=== PATIENT | female | born 1985 | race Caucasian/White ===

== ENCOUNTER → 2018-07-13 16:33 | Outpatient (CLI) | payer OTHER, SELFPAY ==
[2018-07-17 08:30] LABS: HPV APTIMA, High Risk Negative (Negative)
== END ==
PROVIDERS: Family Provider Nurse Practitioner Family; PCP Nurse Practitioner Family; Referring Provider Obstetrics & Gynecology; Visit Provider Obstetrics & Gynecology
DX: Z12.4 Encounter for screening for malignant neoplasm of cervix (principal)
CPT/HCPCS: 88175; G0145

== ENCOUNTER 2018-09-16 14:58 | Emergency (ER) | payer OTHER, SELFPAY ==
[2018-09-16 15:00] VITALS: BP 110/70; PULSE 110; RESP 18; TEMP 36.7; O2SAT 97; BMI 28.5
--- NOTE | 2018-09-16 15:13 | EKG12_ITS ---
Test Reason : SOB Blood Pressure : / mmHG Vent. Rate : 103 BPM Atrial Rate : 103 BPM P-R Int : 130 ms QRS Dur : 086 ms QT Int : 336 ms P-R-T Axes : 060 050 015 degrees QTc Int : 440 ms Sinus tachycardia Nonspecific ST and T wave abnormality Abnormal ECG Confirmed by CELI ROWE ([id number]), newspaper editor PAMELA BRYSON ([id number]) on 09/22/2018 2:40:18 PM Referred By: ELVIS Confirmed By:CELI ROWE
--- NOTE | 2018-09-16 15:13 | RAD_ITS ---
STUDY: X-RAY CHEST REASON FOR EXAM: Female, 32 years old. History of asthma and increasing shortness of breath. TECHNIQUE: PA and lateral views of the chest. COMPARISON: None. FINDINGS: Minimal increased linear markings in the right middle lobe. Early infiltrate and/or atelectasis should be ruled out. Follow-up is recommended. There is no demonstrated pleural abnormality. Normal size heart. Normal mediastinum and brigida. Normal visualized pulmonary arteries. Normal visualized aortic arch and descending thoracic aorta. Normal visualized thoracic spine. Normal visualized ribs, clavicles, and shoulders. There is no demonstrated abnormality of the visualized soft tissue structures of the upper abdomen. RAD/Chest PA and Lateral IMPRESSION: Mild degree of increased markings in the right middle lobe. Follow-up is recommended. Electronically Signed: David Gomez MD at 15:52 EST Tel [phone], Service support ,
--- NOTE | 2018-09-16 15:26 | ED.DCSUM_ITS ---
- ER Visit Summary Date of Service: 09/16/18 Chief Complaint: Abrupt onset of anterior bilateral lower chest pain with pleuritic component and shortness of breath History of Present Illness: The patient is a 32 F who has no sniffing a past medical history states she was walking up a flight of steps when she developed bilateral anterior sharp chest pain with radiation to the intrascapular region associated with dyspnea. She states she had difficulty walking up the steps because of shortness of breath. She had a sore throat last week. She denies rhinorrhea, congestion or postnasal drainage. She denies headache. She denies visual, ocular auditory symptoms. She denies change in voice. She denies cough. She has no history of pulmonary embolus or DVT. She denies leg pain, swelling or discoloration. She has no risk factors for PE or DVT. She denies nausea, vomiting or diarrhea. She denies any history of trauma. She has no past medical history and there is no significant family history and no family history of hypercoagulable state or DVT/PE. Physical Examination: Vital signs noted and remarkable for tachycardia. Monitor reveals a sinus tachycardia 110. Patient appears in no distress. Head is atraumatic normocephalic. Pupils are equal round reactive. Extraocular muscles are intact. TMs are pearly white with landmarks noted. Nares patent with no drainage. Posterior pharynx without erythema or exudate. Uvula is midline. There is no dysphonia or dysphasia. Trachea is midline. There is no stridor with auscultation of the neck. Heart is rapid and regular without murmur, gallop or rub. S1 and S2 are normal. Lungs are clear to auscultation on the left with good movement of air bilaterally. Rales noted posteriorly with no egophony abdomen is soft nontender. There is no hepatosplenomegaly. Negative Maurer sign. Bowel sounds present normal. There is no CVA tenderness noted. There is no asymmetry, swelling, discoloration, leg vein distention, palpable cords or tenderness along the distribution of the deep venous system. Neuro exam is nonfocal. Test Results: CBC is unremarkable. Basic metabolic panel unremarkable. Potassium is 3 2 and glucose of 116. D-dimer 0.34. Chest x-ray interpreted by az reveals increased markings right middle lobe. This is in the area that the rales were noted on auscultation. Emergency Department Course and Treatment: With abrupt onset of pleuritic chest pain dyspnea on exertion and tachycardia need to entertain possibility of pulmonary embolus. With rales noted right lower lobe posteriorly differential would include pneumonia. Workup will include BMP, CBC, d-dimer and serum test. Chest x-ray was obtained. If there is an infiltrate noted and d-dimer is elevated this would explain the elevated d-dimer. If there is no infiltrate the d-dimer is related she will need a CTA to evaluate for pulmonary embolus. Treatment Plan: P.o. antibiotics and sports or risk otherwise at severity 1. And ibuprofen for pain Disposition: Discharge to home with appropriate home-going instructions Impression: Community acquired pneumonia, right middle lobe Sinus tachycardia documented on monitor and EKG This note was generated with bead Button dictation software. It may contain incorrect words, spelling, and punctuation that were not noted in review of the chart prior to signing ED Disposition - Plan for ED Patient: Disposition: Home or Assisted Living Chief Complaint: Shortness of Breath Instructions: ED Pneumonia Adult Prescriptions: Levofloxacin [Levaquin] 750 mg PO DAILY #6 tablet Referrals: Care Physician,No Primary [Primary Care Provider] - Augustin Belcher MD [STAFF PHYSICIAN] - 5-7 Days Additional Instructions: Since you do not have a physician you were referred to Dr. Yves Belcher. Your prescription was electronically transmitted to [facility] pharmacy your designated pharmacy/pharmacy of choice.
[2018-09-16 15:34] VITALS: TEMP 36.7; O2SAT 97
[2018-09-16 15:49] LABS: Absolute Lymphocyte Count 1.28 X10^3/ul (0.83-4.51); Absolute Neutrophil Count 3.4 X10^3/uL (2.0-7.7); Basophil# 0.02 X10^3/uL; Basophil% 0.4 % (0-1); Eosinophil# 0.08 X10^3/uL; Eosinophils% 1.5 % (0-5); Hemoglobin 13.8 g/dl (12.0-15.0); Lymphocyte # 1.28 X10^3/ul (4.0); Mean Corp Hgb Conc 33.7 g/gl (32-36); Mean Corpuscular Hgb 29.6 pg (27.0-32.0); Mean Corpuscular Volume 87.8 fL (81-99); Mean Platelet Vol. 10.8 fl (6.2-12.0); Monocyte# 0.52 X10^3/uL; Monocyte% 9.7 % (0-10); Neutrophil # 3.43 X10^3/uL (2.7-7.7); Neutrophil % 64.2 % (47-70); Platelet Count 212 K/mm3 (150-450); RBC Distribution Width CV 13.2 % (11.6-14.6); RBC Distribution Width SD 42.2 fl (35.1-43.9); Red Blood Count 4.67 M/mm3 (4.2-5.4); White Blood Count 5.3 K/mm3 (4.4-11.0)
[2018-09-16 15:57] LABS: Anion Gap 9 (5-15); BUN 9 mg/dL (7-18); BUN/Creat Ratio 10.3 RATIO (10-20); Calcium,Total 8.3 mg/dL (8.5-10.1); Chloride 103 mmol/L (98-107); Creatinine, Serum 0.88 mg/dL (0.55-1.02); EST Glomerular Filtration Rate 80 mL/min (>60); Est Glom Filt Rate - Afr Amer 97 mL/min (>60); Estimated Creatinine Clearance 77.33 ml/min; Glucose 116 mg/dL (74-106); Potassium 3.2 mmol/L (3.5-5.1); Sodium Level 141 mmol/L (136-145)
[2018-09-16 15:59] LABS: POSITIVE COUNT NO; POSITIVE DIFFERENTIAL NO; POSITIVE MORPHOLOGY NO
[2018-09-16 16:04] VITALS: BP 108/70; PULSE 96; RESP 19; TEMP 36.8; O2SAT 97
[2018-09-16 16:15] LABS: D-Dimer Quantitative (DVT/PE) 0.34 FEU/ug/m (0.27-0.49)
[2018-09-16 16:29] LABS: Pregnancy, Serum, hCG Quali. NEGATIVE Negative (0-9 Nonpreg)
[2018-09-16] MEDS: levoFLOXacin 750 MG Tablet PO (16:39)
[2018-09-16 16:50] VITALS: BP 109/66; PULSE 103; RESP 20; O2SAT 98
== END 2018-09-16 16:51 | disposition home or self-care (01) ==
PROVIDERS: Emergency Provider Emergency Medicine
DX: J18.9 Pneumonia, unspecified organism (principal); R00.0 Tachycardia, unspecified
CPT/HCPCS: 71046; 80048; 84703; 85025; 85379; 93005; 99285; A4216

== ENCOUNTER → 2018-10-28 15:02 | Outpatient (CLI) | payer OTHER, SELFPAY ==
[2018-10-28 18:00] LABS: T4 Free Direct 0.73 ng/dL (0.76-1.46); Thyroid Stim Hormone (TSH) 1.11 uIU/mL (0.358-3.74)
[2018-11-02 08:40] LABS: Anti-Thyroglobulin AB < 1.0 IU/mL (0.0-0.9); Thyroglobulin, Serum Qt. 9.6 ng/mL (1.5-38.5); Thyroid Peroxidase AB 13 IU/mL (0-34)
== END ==
PROVIDERS: Family Provider Family Medicine; PCP Family Medicine; Visit Provider Family Medicine
DX: E04.1 Nontoxic single thyroid nodule (principal)
CPT/HCPCS: 36415; 84432; 84439; 84443; 86376; 86800

== ENCOUNTER → 2018-12-07 15:11 | Outpatient (CLI) | payer OTHER, SELFPAY ==
--- NOTE | 2018-12-07 15:14 | US_ITS ---
STUDY: THYROID ULTRASOUND REASON FOR EXAM: Female, 32 years old. Nodule. TECHNIQUE: Ultrasound evaluation of the thyroid was performed with real-time and static aavlos-scale imaging. COMPARISON: 06/16/2017. FINDINGS: RIGHT LOBE: The right lobe of the thyroid gland measures 4.9 x 1.8 x 1.4 cm. There is a homogeneous echotexture. 2 solid nodules measuring 0.89 x 0.56 x 0.53 cm and 0.32 x 0.22 x 0.5 cm respectively. LEFT LOBE: The left lobe of the thyroid gland measures 4.3 x 1.6 x 1.0 cm. There is a homogeneous echotexture. There are no demonstrated solid, cystic or complex lesions. ISTHMUS: The isthmus measures 2 mm. US/Thyroid IMPRESSION: 1. Mild increased size of right thyroid nodule measuring 0.89 x 0.56 x 0.53 cm, previously 0.7 x 0.7 x 0.4 cm. 2. New small solid nodule in the right thyroid lobe measuring 0.32 x 0.22 x 0.53 cm. 3. Interval decrease in size of right thyroid lobe measuring 4.9 x 1.8 x 1.4 cm, previously 5.6 x 2.1 x 1.4 cm. Electronically Signed: Minesh Louise MD at 9:50 EDT , Service support ,
== END ==
PROVIDERS: Family Provider Family Medicine; PCP Family Medicine; Referring Provider Family Medicine; Visit Provider Family Medicine
DX: E04.1 Nontoxic single thyroid nodule (principal)
CPT/HCPCS: 76536

== ENCOUNTER → 2019-02-02 | Outpatient (CLI) | payer OTHER, SELFPAY ==
[2018-12-20 15:19] VITALS: BMI 28.5
--- NOTE | 2019-02-02 14:47 | RAD_ITS ---
STUDY: X-RAY - RIGHT FOOT CLINICAL: Female, 33 years old. Right foot pain TECHNIQUE: 3 view(s) of the foot. COMPARISON: None. FINDINGS: Normal talus, calcaneus, and tarsal bones. Normal visualized subtalar, talonavicular, calcaneocuboid, tarsal and tarsometatarsal articulations. Normal metatarsi. Normal metatarsophalangeal joint of the great toe. Normal tibial and fibular sesamoid bones. Normal interphalangeal joint of the great toe. Normal phalanges of the great toe. Normal second through fifth metatarsophalangeal joints. Normal interphalangeal joints and phalanges of the lesser toes. The soft tissue structures are unremarkable. RAD/Foot min 3 Views IMPRESSION: Normal x-ray examination of the foot. Electronically Signed: Juan Barros MD at 13:32 EDT , Service support ,
[2019-02-02 16:36] LABS: Uric Acid 4.6 mg/dL (2.6-6.0)
== END | disposition home or self-care (01) ==
LOC: MTLAB 14:45
PROVIDERS: Family Provider Family Medicine; PCP Family Medicine; Referring Provider Family Medicine; Visit Provider Family Medicine
DX: M25.571 Pain in right ankle and joints of right foot (principal)
CPT/HCPCS: 36415; 73630; 84550

== ENCOUNTER → 2019-03-01 | Outpatient (CLI) | payer OTHER, SELFPAY ==
[2018-12-20 15:19] VITALS: BMI 28.5
[2019-03-01 17:44] LABS: Vitamin D,25 Hydroxy 23.6 ng/mL (29.95-100.01)
== END | disposition home or self-care (01) ==
LOC: MTLAB 15:31
PROVIDERS: Family Provider Family Medicine; PCP Family Medicine; Referring Provider Podiatrist; Visit Provider Podiatrist
DX: S92.309A Fracture of unspecified metatarsal bone(s), unspecified foot, initial encounter for closed fracture (principal); E55.9 Vitamin D deficiency, unspecified
CPT/HCPCS: 36415; 82306

== ENCOUNTER 2019-04-05 11:00 | Outpatient (RCR) | payer OTHER, SELFPAY ==
[2018-12-20 15:19] VITALS: BMI 28.5
--- NOTE | 2019-02-03 15:45 | HP.PTEVAL_ITS ---
Patient's Visit Information LORENE CHAUDHARY is a 33 year old F referred to Physical Therapy by Micheal Napoles MD with a diagnosis of LCL Sprain/Strain. Date of Evaluation: 02/03/19 Physical Therapist: Tracy Bal DPT - Visit Plan Frequency: 2x /Week Duration: 4 Weeks Plan: Focus on LE and core s/s- ultrasound as needed as modality - Subjective Findings: Patient reports that her left LCL is strained/sprained- insidious onset- started bothering her a couple of weeks ago. Was put on a anti-inflam and it did not make a lot of difference. Pain is located along the lateral aspect of the knee. Worst: 9/10 Agg:bending, squatting, steps (both up and down). Eases: ice, rest, doing nothing. Best:0/10. Describes the pain as dull but when she is squatting its a lot worse- dreds going down stairs. No radiating pain. No N/T in the LE. Sleep: not disturbed. 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 Is waiting on x-ray results on her right foot and its causing her to slow down as well. Dr. Napoles is on top of all of those things. PMHx: anxiety, exercise induced asthma Meds: Zyrtec, IUD, anxiety medication, Prednisone - Objective Posture: FH, RS, increased kyphosis. Gait: decreased stance on the right LE with poor heel/toe pattern. Stairs: asc/desc 8' stairs recip with 2 HR- poor control with descent with pain. HR/TR: able without UE A. SLS: 5 sec with increased muscle activation. Squat: significant weight shift to the right- heels pop off ground. Palpation: tender along lateral joint line. ROM: 0-130 degrees with pain at end range flexion. Strength: ankle: 5/5, Knee: 4+/5, Hip: 4/5, Core: fair. Flex: HS: moderate, Gastroc: moderate. Special Test: [place] y: positive - Goals Goal 1:: Patient will be I with HEP and progression Goal Time Frame: 4-6 Weeks Goal 2:: Patient will ambulate >300 feet with a normalized gait pattern Goal Time Frame: 4-6 Weeks Goal 3:: Patient will asc/desc 8 stairs recip with 1 HR and good technique Goal Time Frame: 4-6 Weeks Goal 4:: Patient will squat with good mechanics Goal Time Frame: 4-6 Weeks - Rehabilitation Potential Physical Therapy Diagnosis: Patient presents with hypomobility- she has decreased painfree ROM, strength, proprioception and muscular endurance leading to increased pain with ADL's. Rehabilitation Potential: Good - Anticipated Interventions Therapeutic Exercise to Include: Strength training, Endurance training, Balance training, Agility training, Body mechanics, Postural training, Flexibilty training, Gait and locomotor training, Dynamic Lumbar Stabilization For the Purpose of:: To improve muscle performance and motor function TENS: Yes Cryotherapy (ice pack, ice massage): Yes Thermo therapy (hot pack): Yes Ultrasound (thermal/non thermal): Yes For the Purpose of:: To decrease pain Thank you for the opportunity to evaluate your patient. For Medicare and Medicare HMO plans, please review the plan of care and approve it. It will need to be FAXED BACK to us at [phone] for Medicare purposes. For Medicare only, by signing this I certify the plan of care. Please let me know if there are questions or concerns regarding this plan of care. Physician Signature: Date:
--- NOTE | 2019-03-07 10:48 | HP.PTREVAL ---
Micheal Napoles MD, It has been my pleasure to treat LORENE CHAUDHARY over the last 9 visits for LCL Sprain/Strain. Please see the progress note below for an update on the physical therapy plan of care! Subjective: Anders reports that her knee is good today but she is still experiencing flare ups. Does have tweaks and it takes a few minutes for it to go away. She is wearing her cam boot on the right foot. Does not trust the knee- and is afraid to make it better. Objective/Function: Posture: FH, RS, increased kyphosis. Gait: CAM walker on the right LE does gait is deviated. Stairs: asc/desc 8' stairs recip with 1 HR- poor control with descent with pain. HR/TR: able without UE A. SLS: 20 sec with increased muscle activation. Squat: moderate weight shift to the right- heels pop off ground. Palpation: tender along lateral joint line and along fibular head. ROM: 0-130 degrees Strength: ankle: 5/5, Knee: 4+/5, Hip: 4/5, Core: fair. Flex: HS: moderate, Gastroc: moderate. Special Test: Sasha: positive Plan Plan: Continue 2x a week for 4 weeks with 60 min session- Ultrasound on lateral aspect of the knee and possible need for fibular head mobs- Exercise for core and LE strengthening- perform wtih Cam walker on the right foot Goals Goal 1:: Patient will be I with HEP and progression Goal Time Frame: 4-6 Weeks Goal Progress: Progressing Goal 2:: Patient will ambulate >300 feet with a normalized gait pattern Goal Time Frame: 4-6 Weeks Goal Progress: Progressing Goal 3:: Patient will asc/desc 8 stairs recip with 1 HR and good technique Goal Time Frame: 4-6 Weeks Goal Progress: Progressing Goal 4:: Patient will squat with good mechanics Goal Time Frame: 4-6 Weeks Goal Progress: Progressing Anticipated Interventions Therapeutic Exercise to Include: Strength training, Endurance training, Balance training, Agility training, Body mechanics, Postural training, Flexibilty training, Gait and locomotor training, Dynamic Lumbar Stabilization For the Purpose of:: To improve muscle performance and motor function TENS: Yes Cryotherapy (ice pack, ice massage): Yes Thermo therapy (hot pack): Yes Ultrasound (thermal/non thermal): Yes For the Purpose of:: To decrease pain Please do not hesitate to contact me at [phone] by phone or if you have questions or concerns regarding this new plan of care! Sincerely, MIRIAN TuckerT
--- NOTE | 2019-04-05 11:20 | HP.PTDCSUM ---
HP - PT D/C Summary It has been my pleasure to treat LORENE CHAUDHARY under orders from Micheal Napoles MD, for the diagnosis of LCL Sprain/Strain for a total of 17 visit(s). Discharge Date: Please see the following information for a summary of their discharge status. - Subjective Subjective: Patient reports that she is doing great- no problems with ADL's or recreational activities with the knee but the boot is driving her crazy. She has zero pain and feels the knee is 98% better. Saw and has to be in the boot for another 4 weeks. - Pain right foot Pain Intensity (Out of 10): 3 left knee Pain Intensity (Out of 10): 0 - Overall Improvement % Improvement: 98 - Objective Objective/Function: Posture: good throughout session in hard back chair and plinth Gait: CAM walker on the right LE does gait is deviated. Stairs: asc/desc 8' stairs recip with no HR- good control HR/TR: able without UE A. SLS: 30 sec no LOB or increased muscle activation. Squat: mild valgus Palpation: not tender ROM: 0-130 degrees Strength: ankle: 5/5, Knee: 5/5, Hip: 5/5, Core: fair plus. Flex: HS: moderate, Gastroc: moderate. Special Test: Sasha: positive - Goals Goal 1:: Patient will be I with HEP and progression Goal Progress: Goal Met Goal 2:: Patient will ambulate >300 feet with a normalized gait pattern Goal Progress: Progressing Goal 3:: Patient will asc/desc 8 stairs recip with 1 HR and good technique Goal Progress: Goal Met Goal 4:: Patient will squat with good mechanics Goal Progress: Goal Met - Plan Plan: Discharge to [facility] for her knee. - D/C Information If there are questions or concerns regarding this patient's physical therapy, please feel free to call me at [phone]. Thank you for the referral of this patient. Sincerely, Tracy Bal DPT
== END 2019-04-05 19:00 | disposition home or self-care (01) ==
LOC: PT 11:00
PROVIDERS: Family Provider Family Medicine; PCP Family Medicine; Referring Provider Family Medicine; Visit Provider Family Medicine
DX: S83.429D Sprain of lateral collateral ligament of unspecified knee, subsequent encounter (principal)
CPT/HCPCS: 97035; 97110; 97161; 97164

== ENCOUNTER → 2019-08-04 14:01 | Outpatient (CLI) | payer OTHER, SELFPAY ==
[2019-07-18 11:46] VITALS: BMI 28.5
--- NOTE | 2019-08-04 14:02 | US_ITS ---
STUDY: THYROID ULTRASOUND REASON FOR EXAM: Female, 33 years old. Thyroid disorder. TECHNIQUE: Ultrasound evaluation of the thyroid was performed with real-time and static avalos-scale imaging. COMPARISON: December 07, 2018. FINDINGS: RIGHT LOBE: The right lobe of the thyroid gland measures 4.8 x 1.9 x 1.7 cm. There is a homogeneous echotexture. In the mid thyroid there is a solid cystic nodule measuring 1.0 x 0.6 x 0.8 cm. There is also a 0.3 x 0.3 x 0.2 cm cyst with small internal nodule in the upper to mid thyroid. LEFT LOBE: The left lobe of the thyroid gland measures 4.6 x 1.5 x 1.1 cm. There is a homogeneous echotexture. There are no demonstrated solid, cystic or complex lesions. ISTHMUS: The isthmus measures 0.2 cm. The regional lymph nodes are normal. US/Thyroid IMPRESSION: Stable findings when compared with study of approximately 8 months ago. Both nodules are characterized by ACR TIRADS criteria as category TR 2, not suspicious. Electronically Signed: Chapin Alejandre DO at 20:51 EST Tel [phone], Service support ,
== END ==
PROVIDERS: Family Provider Family Medicine; PCP Family Medicine; Referring Provider Obstetrics & Gynecology; Visit Provider Obstetrics & Gynecology
DX: E07.9 Disorder of thyroid, unspecified (principal)
CPT/HCPCS: 76536

== ENCOUNTER → 2019-08-10 15:30 | Outpatient (CLI) | payer OTHER, SELFPAY ==
[2019-07-18 11:46] VITALS: BMI 28.5
[2019-08-10 17:54] LABS: Vitamin D,25 Hydroxy 22.3 ng/mL (29.95-100.01)
== END ==
PROVIDERS: Family Provider Family Medicine; PCP Family Medicine; Referring Provider Family Medicine; Visit Provider Family Medicine
DX: E55.9 Vitamin D deficiency, unspecified (principal)
CPT/HCPCS: 36415; 82306

== ENCOUNTER → 2020-03-20 | Outpatient (CLI) | payer OTHER, SELFPAY ==
[2020-03-20 15:28] VITALS: BMI 28.5
== END | disposition home or self-care (01) ==
LOC: LABSPEC 16:16
PROVIDERS: PCP Family Medicine; Referring Provider Obstetrics & Gynecology; Visit Provider Obstetrics & Gynecology
DX: R35.0 Frequency of micturition (principal)
CPT/HCPCS: 87077; 87086; 87088; 87186

== ENCOUNTER → 2020-06-28 14:25 | Outpatient (CLI) | payer OTHER, SELFPAY ==
[2020-03-20 15:28] VITALS: BMI 28.5
[2020-06-28 17:48] LABS: Vitamin D,25 Hydroxy 44.2 ng/mL
== END ==
PROVIDERS: PCP Family Medicine; Referring Provider Family Medicine; Visit Provider Family Medicine
DX: E55.9 Vitamin D deficiency, unspecified (principal)
CPT/HCPCS: 36415; 82306

== ENCOUNTER → 2020-07-11 15:29 | Outpatient (CLI) | payer OTHER, SELFPAY ==
[2020-03-20 15:28] VITALS: BMI 28.5
--- NOTE | 2020-07-11 15:32 | US_ITS ---
STUDY: THYROID ULTRASOUND REASON FOR EXAM: Female, 34 years old. nodule TECHNIQUE: Ultrasound evaluation of the thyroid was performed with real-time and static avalos-scale imaging. COMPARISON: 08/04/2019. FINDINGS: RIGHT LOBE: The right lobe of the thyroid gland measures 5.5 x 2.0 x 1.6 cm. There is a homogeneous echotexture. Solid cystic nodule mid pole measuring 1.3 x 0.8 x 0.7 cm. Lobulated isoechoic component with well-defined borders measuring 0.7 x 0.5 cm unchanged. Cystic nodule lower pole measuring 0.3 x 0.2 x 0.2 cm. Nodules have remained stable. LEFT LOBE: The left lobe of the thyroid gland measures 4.0 x 1.4 x 1.5 cm. There is a homogeneous echotexture. There are no demonstrated solid, cystic or complex lesions. ISTHMUS: The isthmus measures 2 mm . The regional lymph nodes are normal. US/Thyroid IMPRESSION: Stable nodules right lobe of the thyroid gland. ACR TI-RADS Category 2, benign. Enlarged right lobe not significantly changed. Electronically Signed: Haris Haro MD at 7:18 EDT , Service support ,
== END ==
PROVIDERS: PCP Family Medicine; Referring Provider Family Medicine; Visit Provider Family Medicine
DX: E04.1 Nontoxic single thyroid nodule (principal)
CPT/HCPCS: 76536

== ENCOUNTER → 2020-11-06 | Outpatient (CLI) | payer OTHER, SELFPAY ==
[2020-11-06 13:58] VITALS: BMI 30.4
== END | disposition home or self-care (01) ==
LOC: LABSPEC 16:54
PROVIDERS: PCP Family Medicine; Referring Provider Nurse Practitioner Women's Health; Visit Provider Nurse Practitioner Women's Health
DX: R30.0 Dysuria (principal)
CPT/HCPCS: 87077; 87086; 87088; 87186

== ENCOUNTER → 2021-02-15 15:15 | Outpatient (CLI) | payer OTHER, SELFPAY ==
[2020-11-06 13:58] VITALS: BMI 30.4
[2021-02-21 12:39] LABS: Vitamin D,25 Hydroxy 30.8 ng/mL
== END ==
PROVIDERS: PCP Family Medicine; Referring Provider Family Medicine; Visit Provider Family Medicine
DX: E55.9 Vitamin D deficiency, unspecified (principal)
CPT/HCPCS: 36415; 82306

== ENCOUNTER → 2021-05-09 16:58 | Outpatient (CLI) | payer OTHER, SELFPAY ==
[2020-11-06 13:58] VITALS: BMI 30.4
--- NOTE | 2021-05-09 17:00 | RAD_ITS ---
HISTORY: stepped on nail EXAMINATION/TECHNIQUE: XR Foot Min 3 Views: COMPARISON: None FINDINGS: BONES/JOINTS: 3 mm focal cortical depression at the medial cortex of the second proximal phalanx. No other findings suspicious for possible acute bony injury. Preservation of the joint spaces. No sclerotic or destructive changes observed. SOFT TISSUES: No soft tissue swelling or gas. No radiopaque foreign body. RAD/Foot min 3 Views IMPRESSION: Possible focal cortical injury second proximal phalanx. No retained soft tissue foreign body. at 0048 Reported and signed by: Haris Veronica MD Electronically Signed: Haris Veronica MD at 0:47 EDT Tel , Service support ,
== END ==
PROVIDERS: PCP Family Medicine; Referring Provider Nurse Practitioner Family; Visit Provider Nurse Practitioner Family
DX: S91.332A Puncture wound without foreign body, left foot, initial encounter (principal)
CPT/HCPCS: 73630

== ENCOUNTER → 2021-06-19 | Outpatient (CLI) | payer OTHER, SELFPAY | END | disposition home or self-care (01) | LOC: LABSPEC 15:13 | PROVIDERS: PCP Family Medicine; Referring Provider Family Medicine; Visit Provider Family Medicine | DX: U07.1 COVID-19 (principal) | CPT/HCPCS: 87635; U0005; U0003 ==

== ENCOUNTER 2021-06-25 18:29 | Outpatient (CLI) | payer OTHER, SELFPAY ==
[2021-06-25 18:40] VITALS: BP 114/66; PULSE 105; RESP 20; TEMP 37.9; O2SAT 98
[2021-06-25] MEDS: Acetaminophen 325 MG Tablet 650 MG PO (18:43)
[2021-06-25] MEDS: 0.9% Saline Lock 10 ML Syringe IV (18:44)
[2021-06-25 19:33] VITALS: BP 105/54; PULSE 100; RESP 20; TEMP 38.4; O2SAT 95
[2021-06-25 20:33] VITALS: BP 101/55; PULSE 95; RESP 18; TEMP 37.3; O2SAT 95
== END 2021-06-25 20:40 | disposition home or self-care (01) ==
LOC: MS3OUT 18:29 → MS3 18:30
PROVIDERS: PCP Family Medicine; Referring Provider Nurse Practitioner Adult Health; Visit Provider Nurse Practitioner Adult Health
DX: Z23 Encounter for immunization (principal); U07.1 COVID-19
CPT/HCPCS: J7050; M0243; A4216; Q0244

== ENCOUNTER 2021-06-26 02:09 | Emergency (ER) | payer OTHER, SELFPAY ==
[2021-06-26 02:10] VITALS: BP 98/70; PULSE 95; RESP 18; TEMP 37.7; O2SAT 95; BMI 30.2
--- NOTE | 2021-06-26 02:44 | EX.ED.DYSGE1 ---
HPI History of Present Illness Chief Complaint: Nausea/Vomiting Informant: patient Narrative Narrative: Patient presents with nausea nausea and 2 episodes of vomiting. This patient started with symptoms of Covid that were typical about 9 days ago. She does have asthma but has not been having an exacerbation. She has not been on steroids. She was set up for outpatient monoclonal treatment. At about 6 PM she had casirivimab/imdevimab infusion. After that she has vomited twice. She does have Zofran at home that she was given. She tried this but it did not help. She is not really having abdominal pain. She is not having dyspnea at this time. Her reason for coming here is the nausea and vomiting. Nothing specifically makes this better or worse. No blood was seen. [facility] Medical History (Updated 06/26/21 @ 05:[address] Casa Ma MD) Asthma Back problem Encounter for IUD insertion Thyromegaly Home Medications cetirizine 10 mg tablet 10 mg PO DAILY 12/20/18 [History Last Taken Unknown] albuterol sulfate 1 - 2 inh INHALATION Q4H PRN PRN 06/25/21 [History Last Taken Unknown] tiotropium bromide [Spiriva Respimat] 2 inh INHALATION DAILY 06/25/21 [History Last Taken Unknown] promethazine 25 mg PO Q6H PRN #10 tab 06/26/21 [Rx Last Taken Unknown] Allergy/AdvReac Type Severity Reaction Status Date / Time No Known Allergies Allergy Verified 06/26/21 02:14 Family History Grandfather Diabetes Hypertension Grandfather Cancer Throat Son Asthma Surgical History History of wisdom tooth extraction, class IV edentulism Social History adopted: No household members: family housing: house number of children: 2 current occupational status: employed current occupation: [employer] current occupational exposures/hazards: Yes pets and animals: Yes history of recent travel: No Smoking Status: Never smoker alcohol intake: current alcohol intake frequency: holidays/special occasions only substance use type: does not use seatbelt use: always do you feel safe at home: Yes additional social history: - [employer] [facility] ED Constitutional Constitutional ED: Reports chills and subjective Eyes Eyes: Denies blurry vision ENT ENT ED: Reports rhinorrhea; Denies ear pain or sore throat Cardiovascular Cardiovascular: Denies chest pain Respiratory/Chest Respiratory/Chest: Reports cough; Denies dyspnea Gastrointestinal Gastrointestinal: Reports nausea and vomiting; Denies abdominal pain, constipation, diarrhea or melena Genitourinary Genitourinary ED: Denies dysuria, hematuria or urinary frequency Musculoskeletal Musculoskeletal: Reports myalgias Integumentary Denies abscess Neurologic Neurologic: Denies weakness Endocrine Endocrinology: Denies polydipsia or polyuria EXAM Physical Exam Const Vital Signs: 06/26/21 02:10 Temperature 99.9 F H Temperature Source Oral Pulse Rate 95 Respiratory Rate 18 Blood Pressure 98/70 Blood Pressure Mean 79 Pulse Ox 95 Oxygen Delivery Method Room Air Positive well nourished and well developed General Appearance ED: well developed and NAD HEENT Reports moist mucous membranes Eyes General Eye ED: Negative for pale conjunctiva or scleral icterus Neck no JVD Resp normal respiratory effort and clear to auscultation bilaterally Auscultation: Negative for wheezes Cardio Negative for regular rate or regular rhythm GI normal to inspection, nondistended, normoactive bowel sounds, non-tender and non-distended Palpation: soft Back/Spine no CVA tenderness Extremity normal to inspection Neuro oriented x3 Sensorium / Orientation: alert Psych mental status grossly normal Skin no rashes or lesions noted MDM MDM MDM Narrative Medical decision making narrative: I rechecked the patient. She states the nausea was not any better. At this point I told her we will get her some meds through IV and IV fluids to try to help. After talking with nursing staff I find she has been drinking water the entire time here. So evidently she is drinking without any vomiting. I explained the patient I will try to get her better but if we are controlling her vomiting but she still has nausea that may be the best we can do. Alonso will have problems with nausea vomiting and diarrhea. She seems to really flared up with the nausea after her monoclonal antibodies. This should calm down over the next day. We will recheck her again. 05: 30 Patient's been resting. She has not vomited. She drank water. She drank a can of Sprite. She is doing better. She has Zofran at home. I will write for some Phenergan. She can also take Benadryl if needed. This will help her rest as well as has some beneficial effect with nausea. Discharge Plan Triage Chief Complaint: Nausea/Vomiting ED Provider: Casa Ma Dx/Rx/DC Orders Clinical Impression: COVID-19, Nausea & vomiting, Dehydration, Medication reaction Instructions: ED Vomiting (Adult) Prescriptions: New promethazine 25 mg tablet 25 mg PO Q6H PRN (Reason: nausea and vomiting) Qty: 10 RF: 0 No Action cetirizine [Zyrtec] 10 mg tablet 10 mg PO DAILY RF: 0 albuterol sulfate 90 mcg/actuation HFA aerosol inhaler 1 - 2 inh INHALATION Q4H PRN PRN (Reason: sob) RF: 0 Spiriva Respimat 1.25 mcg/actuation mist 2 inh INHALATION DAILY RF: 0 Primary Care Provider: Micheal Napoles Referrals: Micheal Napoles MD [Primary Care Provider] - 3-5 Days if not improving Disposition Disposition: Home, Self Care
[2021-06-26] MEDS: proMETHazine 25 MG/ML Syringe 12.5 MG IM (02:51)
[2021-06-26] MEDS: 0.9% Normal Saline 1,000 ML 1000 ML IV (04:12)
[2021-06-26] MEDS: Ketorolac 15 MG/ML Vial IV (04:19)
[2021-06-26] MEDS: DiphenhydrAMINE 50 MG/ML Syringe 25 MG IV (04:20)
[2021-06-26] MEDS: Ondansetron 4 MG/2 ML Vial IV (04:29)
== END 2021-06-26 06:04 | disposition home or self-care (01) ==
PROVIDERS: Emergency Provider Emergency Medicine; PCP Family Medicine
DX: U07.1 COVID-19 (principal); R11.2 Nausea with vomiting, unspecified; E86.0 Dehydration; T50.995A Adverse effect of other drugs, medicaments and biological substances, initial encounter; Y92.9 Unspecified place or not applicable; J45.909 Unspecified asthma, uncomplicated
CPT/HCPCS: 96361; 96372; 96374; 96375; 99284; A4216; J2405

== ENCOUNTER → 2021-07-12 | Outpatient (CLI) | payer OTHER, SELFPAY ==
[2021-07-12 15:20] LABS: Bacteria 0 SEEN /hpf (None Seen); Mucous, Urine 0 SEEN /hpf (<or=2+)
[2021-07-12 15:28] LABS: Color, Urine Yellow (Yellow); Glucose, Dipstick Normal (Normal); Ketone-Dipstick Negative (Negative); Leukocyte Esterase-Dipstick 100 /ul (Negative); Nitrite-Dipstick Negative (Negative); Occult Blood-Urine 150 /ul (Negative); Protein-Dipstick 30 mg/dl (Negative); Urine Bilirubin Dipstick Negative (Negative); Urine Clarity Sl. Cloudy (Clear); Urine Urobilinogen Normal (Normal)
[2021-07-12 15:43] LABS: Red Blood Cells-Urine 5-10 SEEN /hpf (0-5); White Blood Cells 25-50 SEEN /hpf (0-5)
[2021-07-12 15:44] LABS: Squamous Epithelial Cells - UA 0-5 SEEN /hpf (5-10)
== END | disposition home or self-care (01) ==
LOC: LABSPEC 15:08
PROVIDERS: PCP Family Medicine; Referring Provider Physician Assistant Surgical; Visit Provider Physician Assistant Surgical
DX: N39.0 Urinary tract infection, site not specified (principal)
CPT/HCPCS: 81001; 87077; 87086; 87088; 87186

== ENCOUNTER 2021-10-22 17:56 | Outpatient (CLI) | payer OTHER, SELFPAY | END 2021-10-22 23:59 | disposition short-term general hospital (02) | PROVIDERS: PCP Family Medicine; Referring Provider Family Medicine; Visit Provider Family Medicine | DX: B34.9 Viral infection, unspecified (principal) | CPT/HCPCS: 87635; U0003; U0005 ==

== ENCOUNTER → 2022-05-29 | Outpatient (CLI) | payer OTHER, SELFPAY ==
--- NOTE | 2022-05-29 17:56 | MRI_ITS ---
STUDY: MRI ORBITS WITH AND WITHOUT CONTRAST REASON FOR EXAM: Female, 36 years old. CONGENITAL MALFORMATION OF RETINA TECHNIQUE: Standardized fat and water weighted pulse sequences were obtained in all 3 orthogonal planes, pre-and post contrast administration. IV CLARISCAN 15CC was administered for the contrast portion of the examination. COMPARISON: None. FINDINGS: Normal bilateral globes. Normal bilateral optic nerve sheath complexes and optic nerves. Normal bilateral intraconal and extraconal spaces. Normal bilateral extraocular muscles. Normal optic chiasm and post-chiasmatic tracts. Normal sella turcica, pituitary gland, infundibular stalk, and hypothalamus. Normal bilateral cavernous sinuses. Normal tectal plate and pineal gland. Normal flow voids within the major intracranial circulation suggesting patency by spin echo criteria. Normal size of the ventricles and extra-axial spaces for the patient''s age. Normal white matter tracts of the supratentorial brain. Normal bilateral basal ganglia. Normal thalami. There is no extra-axial fluid accumulation. Normal midbrain, serafin and medulla. Normal cerebellum. Normal basal cisterns. MRI/Orbit Face Neck W/WO Contrast IMPRESSION: No abnormality of the optic nerves or optic chiasm. No abnormal intraorbital mass.. Electronically Signed: Jatinder Juarez MD at 7:11 EDT ,
== END | disposition home or self-care (01) ==
LOC: MRI 17:53
PROVIDERS: PCP Family Medicine; Visit Provider Ophthalmology
DX: Q14.1 Congenital malformation of retina (principal); H35.89 Other specified retinal disorders; H53.50 Unspecified color vision deficiencies
CPT/HCPCS: 70543; A9575

== ENCOUNTER → 2022-07-30 | Outpatient (CLI) | payer OTHER, SELFPAY ==
--- NOTE | 2022-07-30 17:05 | RAD_ITS ---
STUDY: X-RAY CHEST REASON FOR EXAM: Female, 36 years old. ASTHMA EXACERBATION TECHNIQUE: Frontal and lateral views of the chest. COMPARISON: 09/16/2018 FINDINGS: The lungs are clear and expanded. There is no demonstrated pleural abnormality. Normal size heart. Normal mediastinum and brigida. Normal visualized pulmonary arteries. Normal visualized aortic arch and descending thoracic aorta. Normal visualized thoracic spine. Normal visualized ribs, clavicles, and shoulders. There is no demonstrated abnormality of the visualized soft tissue structures of the upper abdomen. RAD/Chest PA and Lateral IMPRESSION: Normal x-ray examination of the chest. Electronically Signed: Romero Clark MD at 23:59 EDT ,
== END | disposition home or self-care (01) ==
LOC: MTRAD 17:04
PROVIDERS: PCP Family Medicine; Referring Provider Family Medicine; Visit Provider Family Medicine
DX: J45.901 Unspecified asthma with (acute) exacerbation (principal)
CPT/HCPCS: 71046

== ENCOUNTER → 2022-09-12 | Outpatient (CLI) | payer OTHER, SELFPAY ==
[2022-09-23 19:48] LABS: HPV APTIMA, High Risk Negative (Negative)
== END | disposition home or self-care (01) ==
PROVIDERS: PCP Family Medicine; Visit Provider Obstetrics & Gynecology
DX: Z01.419 Encounter for gynecological examination (general) (routine) without abnormal findings (principal)
CPT/HCPCS: 87624; 88175; G0145

== ENCOUNTER → 2022-09-23 | Outpatient (CLI) | payer OTHER, SELFPAY ==
--- NOTE | 2022-09-23 14:20 | US_ITS ---
INDICATION: thyromegaly, nodules EXAMINATION: US Thyroid (eg thyroid, parathyroid, parotid) TECHNIQUE: York scale and color doppler imaging was performed of the thyroid gland. COMPARISON: None. FINDINGS: RIGHT THYROID LOBE: Measures 5.1 x 1.9 x 1.7 cm. Homogeneous echotexture with normal vascularity. [There is a small colloid cyst. There is also a 2.2 cm hypoechoic solid and cystic oval nodule in the midpole which is wider than tall and well-circumscribed. This is consistent with a TI-RADS 3 nodule. LEFT THYROID LOBE: Measures 4.2 x 1.6 x 1.1 cm. Homogeneous echotexture with normal vascularity. [No thyroid nodules are present. ISTHMUS: Measures 0.2 cm.. No thyroid nodules are present. US/Thyroid IMPRESSION: 2.2 cm TR 3 solid and cystic nodule in the right mid pole. Recommend follow-up ultrasound in one year to assess stability. Electronically Signed: Yves Dickerson MD at 17:28 EST ,
--- NOTE | 2022-09-23 14:20 | US_ITS ---
INDICATION: IUD CHECK EXAMINATION: US Pelvis Non OB Complete With Transvaginal Imaging TECHNIQUE: Transabdominal and transvaginal pelvic ultrasound was performed. Grayscale, spectral waveform, and color flow Doppler evaluation of the adnexa. COMPARISON: None. FINDINGS: UTERUS: Anteverted. The uterus measures 9.3 x 4.9 x 4.6 cm. There is no uterine mass. The endometrial stripe measures 4 mm in AP diameter which is within normal limits. There is an intrauterine device in satisfactory position near the fundus. RIGHT OVARY: Measures 4 x 2.9 x 2.2 cm. Non-enlarged, normal echogenicity. There is normal arterial inflow and venous outflow present in the right ovary. LEFT OVARY: Measures 2.6 x 1.7 x 1.6 cm. Non-enlarged, normal echogenicity. There is normal arterial inflow and venous outflow present in the left ovary. FREE FLUID: None. US/Pelvic (Non ) IMPRESSION: IUD is in satisfactory position near the fundus. Electronically Signed: Yves Dickerson MD at 17:23 EST ,
== END | disposition home or self-care (01) ==
LOC: US 14:18
PROVIDERS: PCP Family Medicine; Referring Provider Obstetrics & Gynecology; Visit Provider Obstetrics & Gynecology
DX: Z30.430 Encounter for insertion of intrauterine contraceptive device (principal); E01.0 Iodine-deficiency related diffuse (endemic) goiter
CPT/HCPCS: 76536; 76830; 76856

== ENCOUNTER → 2022-10-17 | Outpatient (CLI) | payer OTHER, SELFPAY ==
--- NOTE | 2022-10-17 | FLU_PTH ---
PATIENT: LORENE CHAUDHARY LOC: [facility] U#:[id number] AGE/SX: 36/F ROOM: RE10/17/[address]: Dr. Galen Welch MD : 1985 BED: DIS: 10/17/2022 SPEC #: [id number] RECD: 10/17/22 11:51 STATUS: HERON RERaza #: [id number] TONG: 10/17/22 00:[address]: Galen Welch DEPT: CYTOLOGY RECD BY: Jessika Armenta ENTERED: 10/17/22 12:52 SP TYPE: Fluid OTHR DR: Dr. Micheal Napoles MD Tissues: A - Thyroid gland, NOS B - Thyroid gland, NOS Procedures: Special Stain Group II Surgery Specimen Level IV Cytospin Fluid Cytology Other HEADER OPERATION: Fine needle aspiration right thyroid PRE-OP DIAGNOSIS: Abnormal thyroid ultrasound TISSUE SUBMITTED: A ? FNA thyroid fluid, B ? FNA thyroid x12 slides DIAGNOSIS CYTOLOGY A. Fine needle aspiration, thyroid fluid (cytospin and cell block): Negative for malignant cells. See comment. B. Fine needle aspiration, thyroid nodule (smears): Benign, consistent with benign follicular/colloid nodule (Rentz Category II). See comment. AM:zahra 10/20/2022 COMMENT A. The specimen contains rare benign appearing follicular cells. B. The specimen is adequate for evaluation. The Rentz System for thyroid diagnostic categorization was used in the evaluation of this case. The specimen is adequate for evaluation. CYTOLOGY STUDY Slides are reviewed. CYTOLOGY GROSS A - Received is 30 ml of light holm cloudy fluid labeled with the patient's name and and designated per the requisition as right thyroid. Submitted for cytology preparation including cell block. B - Received are 12 smears labeled with the patient's name and designated per the requisition as right thyroid. Submitted for staining. / zahra 10/17/2022 TC:5 CPT: 11722 x2, 43676
== END | disposition home or self-care (01) ==
LOC: LABSPEC 12:39
PROVIDERS: PCP Family Medicine; Referring Provider Surgery; Visit Provider Surgery
DX: R94.6 Abnormal results of thyroid function studies (principal)
CPT/HCPCS: 88108; 88161; 88305; 88313

== ENCOUNTER → 2023-01-29 | Outpatient (CLI) | payer OTHER, SELFPAY ==
[2023-01-29 17:41] LABS: Absolute Neutrophil Count 5.7 X10^3/uL (2.0-7.7); Basophil# 0.05 X10^3/uL; Basophil% 0.5 % (0-1); Eosinophil# 0.26 X10^3/uL; Eosinophils% 2.9 % (0-5); Hematocrit 39.6 % (37-47); Hemoglobin 13.5 g/dL (12.0-15.0); Lymphocyte % 27.4 % (19-41); Mean Corp Hgb Conc 34.1 g/dL (32-36); Mean Corpuscular Hgb 29.7 pg (27.0-32.0); Mean Corpuscular Volume 87.2 fL (81-99); Mean Platelet Vol. 11.3 fl (6.2-12.0); Monocyte# 0.54 X10^3/uL; Monocyte% 5.9 % (0-10); NRBC Flagged by Analyzer 0 % (0-5); Neutrophil # 5.73 X10^3/uL (2.7-7.7); Neutrophil % 62.9 % (47-70); Platelet Count 246 K/mm3 (150-450); RBC Distribution Width CV 12.8 % (11.6-14.6); RBC Distribution Width SD 40.5 fl (35.1-43.9); Red Blood Count 4.54 M/mm3 (4.2-5.4); White Blood Count 9.1 K/mm3 (4.4-11.0)
[2023-01-29 18:22] LABS: Vitamin D,25 Hydroxy 36.2 ng/mL
[2023-01-29 18:24] LABS: ALB/GLOB Ratio 1.1 RATIO (0.9-2.4); AST(SGOT) 19 U/L (15-37); Alanine Aminotransfer ALT/SGPT 31 U/L (13-56); Albumin, Serum 3.7 g/dL (3.2-5.0); Alkaline Phosphatase 65 U/L (45-117); Anion Gap 10 (5-15); BUN 8 mg/dL (7-18); BUN/Creat Ratio 10.7 RATIO (10-20); Calcium,Total 8.6 mg/dL (8.5-10.1); Chloride 105 mmol/L (98-107); Creatinine, Serum 0.75 mg/dL (0.55-1.02); EST Glomerular Filtration Rate 93 mL/min (>60); Est Glom Filt Rate - Afr Amer 113 mL/min (>60); Globulin 3.5 g/dL (2.2-4.2); Glucose 128 mg/dL (74-106); Potassium 3.6 mmol/L (3.5-5.1); Protein, Total 7.2 g/dL (6.4-8.2); Sodium Level 139 mmol/L (136-145)
[2023-01-30 12:15] LABS: Hemoglobin A1c 5.2 % (3.8-5.6)
== END | disposition home or self-care (01) ==
LOC: MFPLAB 17:03
PROVIDERS: PCP Family Medicine; Visit Provider Family Medicine
DX: E55.9 Vitamin D deficiency, unspecified (principal)
CPT/HCPCS: 36415; 80053; 82306; 83036; 85025

== ENCOUNTER → 2023-08-04 | Outpatient (CLI) | payer OTHER, SELFPAY ==
[2023-08-04 18:01] LABS: Vitamin D,25 Hydroxy 38.2 ng/mL
[2023-08-04 18:05] LABS: AST(SGOT) 15 U/L (15-37); Alanine Aminotransfer ALT/SGPT 32 U/L (13-56); Albumin, Serum 3.5 g/dL (3.2-5.0); Alkaline Phosphatase 64 U/L (45-117); Anion Gap 5 (5-15); BUN 14 mg/dL (7-18); BUN/Creat Ratio 15.2 RATIO (10-20); Calcium,Total 8.6 mg/dL (8.5-10.1); Chloride 103 mmol/L (98-107); Creatinine, Serum 0.92 mg/dL (0.55-1.02); EST Glomerular Filtration Rate 74 mL/min (>60); Est Glom Filt Rate - Afr Amer 89 mL/min (>60); Globulin 3.5 g/dL (2.2-4.2); Glucose 95 mg/dL (74-106); Potassium 3.6 mmol/L (3.5-5.1); Sodium Level 136 mmol/L (136-145)
== END | disposition home or self-care (01) ==
LOC: MFPLAB 17:03
PROVIDERS: PCP Family Medicine; Visit Provider Family Medicine
DX: E55.9 Vitamin D deficiency, unspecified (principal)
CPT/HCPCS: 36415; 80053; 82306

== ENCOUNTER → 2023-10-02 | Outpatient (CLI) | payer OTHER, SELFPAY ==
--- NOTE | 2023-10-02 12:58 | US_ITS ---
STUDY: THYROID ULTRASOUND REASON FOR EXAM: Female, 37 years old. nodule TECHNIQUE: Ultrasound evaluation of the thyroid was performed with real-time and static avalos-scale imaging. COMPARISON: 09/23/2022. FINDINGS: RIGHT LOBE: The right lobe of the thyroid gland measures 5.5 x 1.9 x 1.4 cm. There is a homogeneous echotexture. Within the middle pole of the right thyroid lobe there is a round heterogeneous structure measuring 1.0 x 0.7 x 0.5 cm with internal color flow. Within the lower pole of the right thyroid lobe there are 2 cystic structures with small solid component, largest measuring 0.5 x 0.2 x 0.3 cm with minimal peripheral color flow. LEFT LOBE: The left lobe of the thyroid gland measures 4.4 x 1.7 x 0.9 cm. There is a homogeneous echotexture. Within the upper pole of the left thyroid lobe there is a predominantly cystic nodule measuring 0.2 x 0.3 x 0.1 cm with regular margin. No color flow. ISTHMUS: The isthmus measures 0.11 cm. The regional lymph nodes are normal. US/Thyroid IMPRESSION: Right middle renal pole thyroid nodule measuring 1.0 cm, decreased in size in the interval. Additional predominantly cystic nodules noted bilaterally as described, recommend follow-up ultrasound in 12 months to assess stability. Electronically Signed: Millicent Alcaraz MD at 16:29 EST ,
--- OUTSIDE RECORDS SUMMARY | 2023-10-02 13:19 | XMS RPT_ITS | CCD ---
Author Name Unknown Address [address] [place] [address] Organization [facility] Care Team Providers Care Hand Ii Cutter Name Role Phone Angela Wagner MD Unavailable [phone] Unavailable Primary Care Provider UnavailCarlos Leal Unavailable Carlos Le Unavailable Radha Emanuel Primary Care Provider GALEN WELCH Attending Unavailable RADHA EMANUEL Referring UnavailRADHA Kinney Primary Care UnavailGALEN Allen Attending Unavailable RADHA EMANUEL Primary Care UnavailGALEN Allen Attending Unavailable RADHA EMANUEL Primary Care UnavailLAURA Lyle Attending Unavailable VANDA GIRON Attending Unavailable TRABOULNANCY, LAURA Referring Unavailable TRABOULNANCY, LAURA Referring Unavailable MICHAEL CALDWELL Attending Unavailable DIOMEDES SALDANA Attending Unavailable TRABLASHANDA, LAURA Referring Unavailable SANDI, LAURA Referring Unavailable Radha Emanuel Primary Care Provider [phone] Allergies Allergy Classification Reported Allergen(s) Allergy Type Date of Onset Reaction(s) Facility (6 sources) Nitrofurantoin; Translations: [NITROFURANTOIN] Drug Allergy 1 Other: See Comments [facility] (5 sources) NITROFURANTOIN, MACROCRYSTALS / Nitrofurantoin, Monohydrate; Translations: [NITROFURANTOIN MONOHYD/M-CRYST] Drug Allergy 3 Swelling [facility] Medications Current Medications Medication Drug Class(es) Dates Sig (Normalized) Sig (Original) benoxinate hydrochloride 4 mg/ml / fluorescein sodium 2.5 mg/ml ophthalmic solution (1 source) Diagnostic Dye Start: 07-01-2022 End: 07-02-2022 fluorescein-benoxi denise 0.25-0.4 % 1 Drop (FLURESS) phenylephrine hydrochloride 25 mg/ml ophthalmic solution (1 source) alpha-1 Adrenergic Agonist Start: 07-01-2022 End: 07-02-2022 PHENYLephrine 2.5 % 1 Drop (AK-DILATE, ANGEL-SYNEPHRINE) tropicamide 10 mg/ml ophthalmic solution (1 source) Anticholinergic Start: 07-01-2022 End: 07-02-2022 tropicamide 1 % 1 Drop (MYDRIACYL) Completed/Discontinued Medications Medication Drug Class(es) Dates Sig (Normalized) Sig (Original) albuterol 0.83 mg/ml inhalation solution (12 sources) beta2-Adrenergic Agonist Start: 06-02-2021 albuterol (PROVENTIL) 2.5 mg /3 mL (0.083 %) nebulizer solution Indications: Mild intermittent asthma with acute exacerbation Use 3 mL via nebulizer every 4 hours as needed for wheezing/shortness of breath. Use over 5-15minutes. 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 Thyroid disorders (7 sources) Non-toxic uninodular goiter; Translations: [Goiter] Onset: 06-12-2017 06-25-2017 Chronic Unclassified (2 sources) care ; Translations: [Encounter for care and examination of mother immediately after delivery] Onset: 06-12-2017 06-12-2017 Unclassified (2 sources) Screening - health check; Translations: [Encounter for general adult medical examination without abnormal findings] Onset: 07-02-2017 07-02-2017 Past or Other Problems Problem Classification Problem Date Documented Da te Episodic/Chronic Administrative/social admission (2 sources) Multigravida; Translations: [Encounter for supervision of other normal , unspecified trimester] Onset: 04-13-2017 04-13-2017 Episodic Blindness and vision defects (5 sources) Visual field defect; Translations: [Unspecified visual field defects] Onset: 05-30-2022 05-30-2022 Episodic Contraceptive and procreative management (4 sources) IUD check; Translations: [IUD contraception] Onset: 06-12-2017 08-02-2017 Episodic Normal and/or delivery (10 sources) Gestation period, 39 weeks; Translations: [Normal ] Onset: 09-18-2016 Resolved: 04-27-2017 04-28-2017 Episodic Other complications of (6 sources) High risk ; Translations: [Supervision of other high risk pregnancies, third trimester] Onset: 09-18-2016 02-18-2017 Episodic Other complications of (6 sources) Nausea and vomiting; Translations: [Vomiting of , unspecified] Onset: 09-18-2016 09-18-2016 Episodic Other upper respiratory infections (4 sources) Pharyngitis; Translations: [Acute maxillary sinusitis] Onset: 07-20-2017 07-20-2017 Episodic Unclassified (4 sources) Gestation period, 40 weeks; Translations: [40 weeks gestation of ] Onset: 04-27-2017 Resolved: 04-28-2017 04-28-2017 Episodic Unclassified (4 sources) 38 weeks gestation of ; Translations: [38 weeks gestation of ] Onset: 04-13-2017 Resolved: 04-17-2017 04-17-2017 Urinary tract infections (2 sources) Urinary tract infectious disease; Translations: [Urinary tract infection, site not specified] Onset: 05-25-2017 05-25-2017 Episodic Results Test Name Value Interpretation Reference Range Facil ity Vital Signs Date Time Vital Sign Value Performing Clinician Maranda mendez 10-28-2022 [id number] Body height 160 cm Galen Welch MD Work Phone: [facility] 10-28-2022 13:28-050 Body temperature 97.9 [degF] Galen Welch MD Work Phone: [facility] 10-28-2022 13:28-050 Body weight 87.09 kg Galen Welch MD Work Phone: [facility] 10-28-2022 13:28-050 Diastolic blood pressure 66 mm[Hg] Galen Welch MD Work Phone: [facility] 10-28-2022 13:28-0500 Heart rate 97 /min Galen Welch MD Work Phone: [facility] 10-28-2022 13:28-0500 SaO2% (BldA) [Mass fraction] 99 % Galen Welch MD Work Phone: [facility] 10-28-2022 13:28-0500 Systolic blood pressure 110 mm[Hg] Galen Welch MD Work Phone: [facility] 10-13-2022 14:34-0500 Body height 160 cm Galen Welch MD Work Phone: [facility] 10-13-2022 14:34-0500 Body temperature 98.6 [degF] Galen Welch MD Work Phone: [facility] 10-13-2022 14:34-0500 Body weight 86.36 kg Galen Welch MD Work Phone: [facility] 10-13-2022 14:34-0500 Diastolic blood pressure 70 mm[Hg] Galen Welch MD Work Phone: [facility] 10-13-2022 14:34-0500 Heart rate 90 /min Galen Welch MD Work Phone: [facility] 10-13-2022 14:34-0500 SaO2% (BldA) [Mass fraction] 100 % Galen Welch MD Work Phone: [facility] 10-13-2022 14:34-0500 Systolic blood pressure 112 mm[Hg] Galen Welch MD Work Phone: [facility] 07-31-2017 14:30-0400 BMI (Body Mass Index) 26.43 kg/m2 Angela Wagner MD [facility] 07-31-2017 14:30-0400 BP Diastolic 74 mm[Hg] Angela Wagner MD [facility] 07-31-2017 14:30-0400 BP Systolic 115 mm[Hg] Angela Wagner MD [facility] 07-31-2017 14:30-0400 Height 162.56 cm Angela Wagner MD [facility] 07-31-2017 14:30-0400 Weight 69.85 kg Angela Wagner MD [facility] 07-20-2017 14:27-0400 Body Temperature 98.2 [degF] Angela Wagner MD [facility] 07-20-2017 14:27-0400 Height 162.56 cm Angela Wagner MD [facility] 07-20-2017 14:27-0400 Pulse (Heart Rate) 95 /min Angela Wagner MD [facility] 07-20-2017 14:27-0400 Respiratory Rate 12 /min Angela Wagner MD [facility] 05-25-2017 11:42-0400 Body Temperature 96.4 [degF] Angela Wagner MD [facility] Encounters Encounter Date Encounter Type Care Provider Facility Start: 04-14-2023 ambulatory Memo Gee [facility] Work Phone: [facility] Procedures Date Procedure Procedure Detail Performing Clinician Start: 10-16-2022 US THYROID BIOPSY RI GHT (POC) SURG USE ONLY Galen Welch MD Work Phone: Start: 07-31-2017 End: 08-02-2017 Us pelvic nonobstetric image dcmtn limited/f/u Angela Wagner MD Work Phone: Start: 07-20-2017 End: 07-20-2017 Iaadiadoo streptococcus group a [employer] MARISCAL Work Phone: Start: 06-12-2017 End: 06-12-2017 Insertion intrauterine device iud Angela Wagner MD Work Phone: Start: 06-12-2017 End: 06-12-2017 Liletta device; 52 mg Angela snyder MD Work Phone: Start: 06-12-2017 End: 06-29-2017 Thyrotropin [Units/volume] in Serum or Plasma Angela Wagner MD Work Phone: Start: 06-12-2017 End: 06-29-2017 Thyroxine (T4) [Mass/volume] in Serum or Plasma Angela Wagner MD Work Phone: Start: 05-25-2017 End: 05-25-2017 Urnls dip stick/tablet rgnt non-auto w/o micrscp Kalani Robertson NP Work Phone: Start: 04-27-2017 End: 04-27-2017 Routine OB Visit (Global) Angela osorio MD Work Phone: Start: 04-20-2017 End: 04-20-2017 Routine OB Visit (Global) Angela osorio MD Work Phone: Start: 04-13-2017 End: 04-16-2017 Routine OB Visit (Global) Angela osorio MD Work Phone: Start: 04-13-2017 End: 04-13-2017 Urnls dip stick/tablet rgnt non-auto w/o micrscp Angela Wagner MD Work Phone: Plan of Treatment Date Care Activity Detail Author Start: 02-04-2027 Urine microalbumin profile DTAP,TDAP,TD (9 - Td or Tdap) [facility] Start: 07-16-2023 End: 12-23-2023 Camera fundoscopy FUNDUS PHOTOS OU (BOTH EYES) OPHT Imaging Routine [place] macular dystrophy Pigmentary retinal dystrophy Expected: 07/16/2023, Expires: 12/23/2023 [facility] Work Phone: Immunizations Immunization Date Immunization Notes Care Provider Renetta malik 02-04-2017 tetanus toxoid, redu cindi diphtheria toxoid, and acellular pertussis vaccine, adsorbed Laura Blancas MD Work Phone: [facility] Work Phone: 12-03-2015 tetanus toxoid, redu cindi diphtheria toxoid, and acellular pertussis vaccine, adsorbed Laura Blancas MD Work Phone: [facility] Work Phone: 11-17-2002 diphtheria and tetan us toxoids, adsorbed for pediatric use Laura Blancas MD Work Phone: [facility] Work Phone: 05-11-2002 hepatitis B vaccine, pediatric or pediatric/adolescent dosage Laura Blancas MD Work Phone: [facility] Work Phone: 11-25-2001 hepatitis B vaccine, pediatric or pediatric/adolescent dosage Laura Blancas MD Work Phone: [facility] Work Phone: 10-25-2001 hepatitis B vaccine, pediatric or pediatric/adolescent dosage Laura Blancas MD Work Phone: [facility] Work Phone: 02-04-2000 measles, mumps and rubella virus vaccine Laura Blancas MD Work Phone: [facility] Work Phone: 12-18-1992 diphtheria, tetanus toxoids and pertussis vaccine Laura Blancas MD Work Phone: [facility] Work Phone: 06-19-1989 diphtheria, tetanus toxoids and pertussis vaccine Laura Blancas MD Work Phone: [facility] Work Phone: 06-19-1989 haemophilus influenz ae type b vaccine, HbOC conjugate Laura Blancas MD Work Phone: [facility] Work Phone: 06-19-1989 poliovirus vaccine, inactivated Laura Blancas MD Work Phone: [facility] Work Phone: 04-20-1989 measles, mumps and rubella virus vaccine Laura Blancas MD Work Phone: [facility] Work Phone: 12-18-1988 poliovirus vaccine, inactivated Laura Blancas MD Work Phone: [facility] Work Phone: 06-17-1988 diphtheria, tetanus toxoids and pertussis vaccine Laura Blancas MD Work Phone: [facility] Work Phone: 03-18-1988 diphtheria, tetanus toxoids and pertussis vaccine Laura Blancas MD Work Phone: [facility] Work Phone: 03-18-1988 poliovirus vaccine, inactivated Laura Blancas MD Work Phone: [facility] Work Phone: 02-06-1988 diphtheria, tetanus toxoids and pertussis vaccine Laura Blancas MD Work Phone: [facility] Work Phone: 02-06-1988 poliovirus vaccine, inactivated Laura Blancas MD Work Phone: [facility] Work Phone: Payers Date Payer Category Payer Unknown MMO MMO [employer] [id number] 2013-Present [phone] [address] [place] [address] [facility] [id number] 2013 Unknown [id number] 2013 Unknown [id number] Social History Date Type Detail Facility Start: 07-29-2011 End: 05-30-2022 Tobacco smoking status NHIS Never smoked tobacco [facility] Work Phone: Start: 07-29-2011 End: 05-30-2022 Tobacco use and exposure Former smokeless tobacco user [facility] Work Phone: History of tobacco use Snuff User [facility] Work Phone: Start: 01-22-2022 End: 10-28-2022 Alcohol intake Current non-drinker of alcohol (finding) [facility] Start: 07-12-2010 End: 05-30-2022 Tobacco Comment Tobacco use X3yrs [facility] Start: 1985 Sex Assigned At Not on file [facility] Start: 01-12-2022 End: 01-22-2022 Exposure to SARS-CoV-2 (event) Unable to assess [facility] Work Phone: Start: 06-21-2022 End: 07-01-2022 Exposure to SARS-CoV-2 (event) Not sure [facility] Start: 10-11-2022 End: 10-28-2022 History of Social function [facility] Start: 10-11-2022 End: 10-28-2022 Tobacco use panel [facility] National Score (1-100), lower number is lower risk 57 [facility] Clinical Notes 12-18-2015 to 10-28-2022 Galen Welch MD - 10/28/2022 1:44 PM Nicole Welch MD - 10/16/2022 3:39 PM Carolina Cid LPN - 10/16/2022 2:38 PM ESTPatient Vidya Welch MD - 10/13/2022 3:58 PM EST Note Date & Type Note Facility 10-28-2022 Note HNO ID: [id number] Author: Galen Welch MD Service: ? Author Type: Physician Type: Progress Notes Filed: 10/28/2022 1:48 PM Note Text: Subjective: Patient is status post an ultrasound-guided fine-needle aspiration of a dominant right thyroid nodule on 10/16/2022. This was for a 2.2 cm nodule. Fine-needle aspiration results came back as a colloid nodule and was adequate for evaluation. Subjective:Blood pressure 110/66, pulse 97, temperature 36.6 ?C (97.9 ?F), height 160 cm (5' 3 ), weight 87.1 kg (192 lb), last menstrual period 07/17/2016, SpO2 99 %. Neck is supple no hard palpable nodules are identified Assessment: Uninodular goiter Plan: Patient will need to have yearly thyroid ultrasounds. If the nodule grows by more than 20% she will need to have a repeat fine-needle aspiration. [facility] 10-28-2022 History of Present illness Narrative Subjective: Patient is status post an ultrasound-guided fine-needle aspiration of a dominant right thyroid nodule on 10/16/2022. This was for a 2.2 cm nodule. Fine-needle aspiration results came back as a colloid nodule and was adequate for evaluation. Subjective:Blood pressure 110/66, pulse 97, temperature 36.6 C (97.9 F), height 160 cm (5' 3 ), weight 87.1 kg (192 lb), last menstrual period 07/17/2016, SpO2 99 %. Neck is supple no hard palpable nodules are identified Assessment: Uninodular goiter Plan: Patient will need to have yearly thyroid ultrasounds. If the nodule grows by more than 20% she will need to have a repeat fine-needle aspiration. documented in this encounter [facility] 10-16-2022 Note HNO ID: [id number] Author: Galen Welch MD Service: ? Author Type: Physician Type: Progress Notes Filed: 10/16/2022 3:40 PM Note Text: Preoperative diagnosis: Uninodular goiter Postoperative diagnosis: The same Procedure: Ultrasound-guided fine-needle aspiration of right thyroid nodule Surgical Yuri Procedure: Ultrasound of the right thyroid gland revealed the nodule in question. Skin was prepped with alcohol. 1% lidocaine plain was injected. Under ultrasound guidance 3 passes with a 22-gauge needle were done through this nodule. These were plated on glass slides. This had a very thick colloid the appearance to it very reminiscent of a colloid nodule. There was nothing suspicious about this. Sterile dressings were applied and the patient tolerated the procedure well. [facility] 10-16-2022 Note HNO ID: [id number] Author: Sasha Cid LPN Service: ? Author Type: LICENSED NURSE Type: Progress Notes Filed: 10/16/2022 3:40 PM Note Text: UNIVERSAL PROTOCOL / SAFETY CHECKLIST Procedure to be Performed: Ultrasound Guided Fine Needle Aspiration Thyroid right Sign In: A Moment of CARE was completed. Personnel directly involved with the procedure wore the appropriate PPE (Personal Protective Equipment). No special equipment needed. Patient/Surrogate Stated/Verified: PATIENT VERIFIED(optional for EMERGENT procedures): Patient name, Date of , Relevant allergies, and The intended procedure Time Out Communication: Intended patient and procedure match the source documents. Consent documented and matches the intended procedure. Relevant labs, photos, and/or imaging studies have been reviewed. Correct side/site marked and visible. Medications required for procedure verified. No fire risk assessment and interventions applicable. No implant(s) inserted. Sign Out: SIGN OUT (optional for EMERGENT procedures): All specimen containers correctly labeled. No instruments, equipment or retained foreign bodies applicable. Post-procedure follow-up management communicated and Plan of Care Visit completed when applicable. Sasha Cid LPN [facility] 10-16-2022 History of Present illness Narrative Preoperative diagnosis: Uninodular goiter Postoperative diagnosis: The same Procedure: Ultrasound-guided fine-needle aspiration of right thyroid nodule Piyush Welch Procedure: Ultrasound of the right thyroid gland revealed the nodule in question. Skin was prepped with alcohol. 1% lidocaine plain was injected. Under ultrasound guidance 3 passes with a 22-gauge needle were done through this nodule. These were plated on glass slides. This had a very thick colloid the appearance to it very reminiscent of a colloid nodule. There was nothing suspicious about this. Sterile dressings were applied and the patient tolerated the procedure well. UNIVERSAL PROTOCOL / SAFETY CHECKLIST Procedure to be Performed: Ultrasound Guided Fine Needle Aspiration Thyroid right Sign In: A Moment of CARE was completed. Personnel directly involved with the procedure wore the appropriate PPE (Personal Protective Equipment). No special equipment needed. Patient/Surrogate Stated/Verified: PATIENT VERIFIED(optional for EMERGENT procedures): Patient name, Date of , Relevant allergies, and The intended procedure Time Out Communication: Intended patient and procedure match the source documents. Consent documented and matches the intended procedure. Relevant labs, photos, and/or imaging studies have been reviewed. Correct side/site marked and visible. Medications required for procedure verified. No fire risk assessment and interventions applicable. No implant(s) inserted. Sign Out: SIGN OUT (optional for EMERGENT procedures): All specimen containers correctly labeled. No instruments, equipment or retained foreign bodies applicable. Post-procedure follow-up management communicated and Plan of Care Visit completed when applicable. Sasha Cid LPN documented in this encounter [facility] 10-16-2022 Instructions Sasha Cid LPN - 10/16/2022 3:01 PM EST Instructions After THYROID FINE NEEDLE ASPIRATION Please do not take aspirin or other blood thinners for the next few days. If you have bleeding from the needle site, hold pressure with a clean gauze. If the bleeding continues, contact our office immediately. I recommend taking Advil or Tylenol for the discomfort. An ice pack may improve your discomfort to the area. Contact our office immediately if you have any questions or concerns @ [phone]. Please make an appointment to follow up in one week with your physician and thank you for choosing the [facility]h. documented in this encounter [facility] 10-13-2022 Note HNO ID: [id number] Author: Galen Welch MD Service: ? Author Type: Physician Type: Progress Notes Filed: 10/13/2022 4:02 PM Note Text: HISTORY AND PHYSICAL Nori Barros 1985 REFERRING PHYSICIAN: Rdaha Emanuel, * CHIEF COMPLAINT: Consult (Thyroid consult) HPI: The patient is a 36 year old female with a complaint of a right thyroid nodule. This thyroid nodule was found on Ultrasound by [facility]. The patient denies pain, denies difficulty swallowing, deniesrapid enlargement of the neck, deniesdysphagia, denies a change in the voice, denies hot or cold intolerence. The patient has not a prior history of neck radiation treatment. The patient is being seen by me today at the request of Dr. Radha Emanuel MD for my opinion and advice regarding Uninodular goiter (primary encounter diagnosis). 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 cetirizine HCl (ZYRTEC ORAL) Take by mouth. albuterol HFA (PROAIR HFA) 90 mcg/actuation inhaler Inhale 2 Puffs as instructed every 4 hours as needed. 1 Inhaler 0 fluticasone propionate (FLONASE NASAL) Use in the nose. (Patient not taking: Reported on 10/13/2022) predniSONE (DELTASONE) 10 mg tablet To be taken orally as directed. Take 4 tabs x4 days, then 2 tabs for 3 days, then 1 tab for 3 days. (Patient not taking: Reported on 10/13/2022) 25 tablet 0 albuterol (PROVENTIL) 2.5 mg /3 mL (0.083 %) nebulizer solution Use 3 mL via nebulizer every 4 hours as needed for wheezing/shortness of breath. Use over 5-15minutes. (Patient not taking: Reported on 10/13/2022) 3 mL 0 omeprazole (PRILOSEC) 20 mg capsule Take 1 capsule by mouth once daily. (Patient not taking: No sig reported) 30 capsule 0 ondansetron (ZOFRAN) 4 mg tablet Take 1 tablet by mouth every 8 hours as needed. (Patient not taking: No sig reported) 30 tablet 3 famotidine (PEPCID) 20 mg tablet Take 1 tablet by mouth twice daily as needed. (Patient not taking: Reported on 10/13/2022) 60 tablet 6 oseltamivir (TAMIFLU) 75 mg capsule Take 1 capsule by mouth once daily. (Patient not taking: Reported on 10/13/2022) 5 capsule 0 metoclopramide HCl (REGLAN) 10 mg tablet Take 1 tablet by mouth four times daily. (Patient not taking: No sig reported) 60 tablet 2 OTC NUTRITIONAL SUPPLEMENT Kristi Clement Pt is taking 3 capsules daily. (Patient not taking: Reported on 10/13/2022) Breast Pump karen As directed (Patient not taking: Reported on 10/13/2022) 1 Device 0 VIT/IRON FUMARATE/FA ( ORAL) Take by mouth. (Patient not taking: Reported on 10/13/2022) DOCOSAHEXANOIC ACID ( DHA ORAL) Take by mouth. (Patient not taking: Reported on 10/13/2022) No current facility-administered medications for this visit. ALLERGIES: Nitrofurantoin and Macrobid [Nitrofurantoin Monohyd/M-Cryst] PERSONAL HISTORY: Social History Tobacco Use Smoking status: Never Smokeless tobacco: Former Types: Snuff Tobacco comments: Tobacco use X3yrs Vaping Use Vaping Use: Never used Substance Use Topics Alcohol use: No Drug use: No FAMILY HISTORY: FAMILY HISTORY Problem Relation Age of Onset Macular Degen Brother Heart Maternal Grandmother Heart Maternal Grandfather Diabetes Paternal Grandmother Diabetes Paternal Grandfather Heart Maternal Uncle Blood Disease Maternal Uncle Hep C No Ocular Disease No Family History REVIEW OF SYMPTOMS: The review of systems data was entered by the nurse and reviewed by ne Nursing Notes: Cindy Mancuso RN 10/13/2022 2:47 PM Signed REVIEW OF SYSTEMS: General: The patient denies fatigue, denies weight loss, denies weight gain, denies feeling hot, and denies feelings of cold. Eyes: The patient denies glaucoma, denies eye injury/surgery, wears glasses or contacts. Ear/Nose/Throat: The patient NOTES allergies, denies hayfever, denies ear infections, and denies bloody noses. Cardiovascular: The patient denies chest pain, denies heart disease, denies high blood pressure,denies cardiac stent, denies prior heart attack, denies irregular heart beat, denies high cholesterol, denies poor circulation, denies heart failure, other cardiac issues, denies claudication, denies cold feet, denies peripheral arterial stent. Respiratory: The patient denies tuberculosis, denies pneumonia, denies frequent cough, denies pulmonary embolism, denies shortness of breath, and denies coughing up blood. Gastrointestinal: The patient denies difficulty swallowing, denies acid reflux, denies ulcers, denies vomiting, denies jaundice/hepatitis, denies gallbladder problems, denies black or tarry stools, de (more content not included)... [facility] 10-13-2022 History of Present illness Narrative HISTORY AND PHYSICAL Nori Barros 1985 REFERRING PHYSICIAN: Radha Emanuel, * CHIEF COMPLAINT: Consult (Thyroid consult) HPI: The patient is a 36 year old female with a complaint of a right thyroid nodule. This thyroid nodule was found on Ultrasound by [facility]. The patient denies pain, denies difficulty swallowing, deniesrapid enlargement of the neck, deniesdysphagia, denies a change in the voice, denies hot or cold intolerence. The patient has not a prior history of neck radiation treatment. The patient is being seen by me today at the request of Dr. Radha Emanuel MD for my opinion and advice regarding Uninodular goiter (primary encounter diagnosis). 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 cetirizine HCl (ZYRTEC ORAL) Take by mouth. albuterol HFA (PROAIR HFA) 90 mcg/actuation inhaler Inhale 2 Puffs as instructed every 4 hours as needed. 1 Inhaler 0 fluticasone propionate (FLONASE NASAL) Use in the nose. (Patient not taking: Reported on 10/13/2022) predniSONE (DELTASONE) 10 mg tablet To be taken orally as directed. Take 4 tabs x4 days, then 2 tabs for 3 days, then 1 tab for 3 days. (Patient not taking: Reported on 10/13/2022) 25 tablet 0 albuterol (PROVENTIL) 2.5 mg /3 mL (0.083 %) nebulizer solution Use 3 mL via nebulizer every 4 hours as needed for wheezing/shortness of breath. Use over 5-15minutes. (Patient not taking: Reported on 10/13/2022) 3 mL 0 omeprazole (PRILOSEC) 20 mg capsule Take 1 capsule by mouth once daily. (Patient not taking: No sig reported) 30 capsule 0 ondansetron (ZOFRAN) 4 mg tablet Take 1 tablet by mouth every 8 hours as needed. (Patient not taking: No sig reported) 30 tablet 3 famotidine (PEPCID) 20 mg tablet Take 1 tablet by mouth twice daily as needed. (Patient not taking: Reported on 10/13/2022) 60 tablet 6 oseltamivir (TAMIFLU) 75 mg capsule Take 1 capsule by mouth once daily. (Patient not taking: Reported on 10/13/2022) 5 capsule 0 metoclopramide HCl (REGLAN) 10 mg tablet Take 1 tablet by mouth four times daily. (Patient not taking: No sig reported) 60 tablet 2 OTC NUTRITIONAL SUPPLEMENT Kristi Clement Pt is taking 3 capsules daily. (Patient not taking: Reported on 10/13/2022) Breast Pump karen As directed (Patient not taking: Reported on 10/13/2022) 1 Device 0 VIT/IRON FUMARATE/FA ( ORAL) Take by mouth. (Patient not taking: Reported on 10/13/2022) DOCOSAHEXANOIC ACID ( DHA ORAL) Take by mouth. (Patient not taking: Reported on 10/13/2022) No current facility-administered medications for this visit. ALLERGIES: Nitrofurantoin and Macrobid [Nitrofurantoin Monohyd/M-Cryst] PERSONAL HISTORY: Social History Tobacco Use Smoking status: Never Smokeless tobacco: Former Types: Snuff Tobacco comments: Tobacco use X3yrs Vaping Use Vaping Use: Never used Substance Use Topics Alcohol use: No Drug use: No FAMILY HISTORY: FAMILY HISTORY Problem Relation Age of Onset Macular Degen Brother Heart Maternal Grandmother Heart Maternal Grandfather Diabetes Paternal Grandmother Diabetes Paternal Grandfather Heart Maternal Uncle Blood Disease Maternal Uncle Hep C No Ocular Disease No Family History REVIEW OF SYMPTOMS: The review of systems data was entered by the nurse and reviewed by ne Nursing Notes: Cindy Mancuso RN 10/13/2022 2:47 PM Signed REVIEW OF SYSTEMS: General: The patient denies fatigue, denies weight loss, denies weight gain, denies feeling hot, and denies feelings of cold. Eyes: The patient denies glaucoma, denies eye injury/surgery, wears glasses or contacts. Ear/Nose/Throat: The patient NOTES allergies, denies hayfever, denies ear infections, and denies bloody noses. Cardiovascular: The patient denies chest pain, denies heart disease, denies high blood pressure,denies cardiac stent, denies prior heart attack, denies irregular heart beat, denies high cholesterol, denies poor circulation, denies heart failure, other cardiac issues, denies claudication, denies cold feet, denies peripheral arterial stent. Respiratory: The patient denies tuberculosis, denies pneumonia, denies frequent cough, denies pulmonary embolism, denies shortness of breath, and denies coughing up blood. Gastrointestinal: The patient denies difficulty swallowing, denies acid reflux, denies ulcers, denies vomiting, denies jaundice/hepatitis, denies gallbladder problems, denies black or tarry stools, denies hemorrhoids, denies bleeding from rectum, denies diverticulitis, denies constipation, denies diarrhea, denies loss of stool control, and denies hernias. Kidney/Bladder: The patient denies kidney stones, denies urine infections, and denies bloody urine. Skin: The patient denies a history of skin cancer, denies bleeding/changing moles, and denies a history of skin rash. Neurologic: The patient denies a history of epilepsy/convulsions, denies headaches, denies head/spinal injuries, and denies stroke/TIA. Psychiatric: The patient denies psychiatric medications, denies depression, and denies voices, denies substance abuse. Endocrine: The patient denies thyroid disorders, denies diabetes, and denies hormonal problems. Hematologic: The patient denies a history of bruising, denies bleeding, and denies anemia, denies blood clots. Infections: The patient denies a history of measles and mumps, denies rheumatic fever, and denies sexually transmitted diseases. Musculoskeletal: The patient denies back pain/injury, denies back problems, denies sciatica, denies knee/foot trouble, denies arthritis, or denies gout. When was patient's last Mammogram screening? N/A Last Colonoscopy: None Cindy Mancuso RN PHYSICAL EXAMINATION: General: The patient is 36 year old female, well nourished, well hydrated in no acute distress. The patient is oriented to time, place, and person. VITALS: Blood pressure 112/70, pulse 90, temperature 37 C (98.6 F), height 160 cm (5' 3 ), weight 86.4 kg (190 lb 6.4 oz), last menstrual period 07/17/2016, SpO2 100 %. Body mass index is 33.73 kg/m . HEENT: Normal cephalic, ataumatic, pupils are equally round, sclera are anicteric, mucous membranes are moist, oropharynx is clear. Neck has no masses, asymmetry or lymphadenopathy. Thyroid exam no hard nodules are palpated. Respiratory: Clear to auscultation and percussion. Normal respiratory excursion and pattern. Cardiac: Examination is regular rate and rhythm. Abdominal exam: Soft, nontender, with no palpable masses. No hepatosplenomegaly. No palpable hernias. Rectal exam: exam deferred Extremities: no clubbing, cyanosis or edema. No adenopathy. Other: LABORATORY VALUES: As Noted RADIOLOGIC STUDIES: As Noted Assessment IMPRESSION: NODULE - right THYROID PLAN: I plan to perform an FNAC of the right Thyroid. Even though they did not recommend a fine-needle aspiration I think when you look at the progression in size from 2016 to present it makes sense that we should probably do something now Diagnoses: (E04.1) Uninodular goiter (primary encounter diagnosis) A letter was sent to Dr. Radha Emanuel MD indicating the above finding for this patient. Return to Clinic: The patient is instructed to follow-up with me 1 week post operatively. Galen Welch III, MD documented in this encounter [facility] 10-13-2022 Nurse Note REVIEW OF SYSTEMS: General: The patient denies fatigue, denies weight loss, denies weight gain, denies feeling hot, and denies feelings of cold. Eyes: The patient denies glaucoma, denies eye injury/surgery, wears glasses or contacts. Ear/Nose/Throat: The patient NOTES allergies, denies hayfever, denies ear infections, and denies bloody noses. Cardiovascular: The patient denies chest pain, denies heart disease, denies high blood pressure,denies cardiac stent, denies prior heart attack, denies irregular heart beat, denies high cholesterol, denies poor circulation, denies heart failure, other cardiac issues, denies claudication, denies cold feet, denies peripheral arterial stent. Respiratory: The patient denies tuberculosis, denies pneumonia, denies frequent cough, denies pulmonary embolism, denies shortness of breath, and denies coughing up blood. Gastrointestinal: The patient denies difficulty swallowing, denies acid reflux, denies ulcers, denies vomiting, denies jaundice/hepatitis, denies gallbladder problems, denies black or tarry stools, denies hemorrhoids, denies bleeding from rectum, denies diverticulitis, denies constipation, denies diarrhea, denies loss of stool control, and denies hernias. Kidney/Bladder: The patient denies kidney stones, denies urine infections, and denies bloody urine. Skin: The patient denies a history of skin cancer, denies bleeding/changing moles, and denies a history of skin rash. Neurologic: The patient denies a history of epilepsy/convulsions, denies headaches, denies head/spinal injuries, and denies stroke/TIA. Psychiatric: The patient denies psychiatric medications, denies depression, and denies voices, denies substance abuse. Endocrine: The patient denies thyroid disorders, denies diabetes, and denies hormonal problems. Hematologic: The patient denies a history of bruising, denies bleeding, and denies anemia, denies blood clots. Infections: The patient denies a history of measles and mumps, denies rheumatic fever, and denies sexually transmitted diseases. Musculoskeletal: The patient denies back pain/injury, denies back problems, denies sciatica, denies knee/foot trouble, denies arthritis, or denies gout. When was patient's last Mammogram screening? N/A Last Colonoscopy: None Cindy Mancuso RN documented in this encounter [facility] 07-01-2022 Note HNO ID: [id number] Author: Diomedes Saldana MD Service: ? Author Type: Physician Type: Progress Notes Filed: 07/01/2022 1:52 PM Note Text: This is a 36 year old female diagnosed upon referral with [facility]. Visual acuity with correction is 20/50 RE and 20/200 LE. IOP 15 /16 . Anterior segment exam is significant for clear lens. Dilated fundus examination demonstrates central atrophy. I recommend sight center and follow up in 1y. I have confirmed and edited as necessary the relevant ophthalmic history, ROS, and the neuro exam findings as obtained by others. I have seen and examined Nori Barros. I have discussed the case and the management of this patient's care with the Resident/Fellow, if applicable. I also have reviewed and agree with the assessment and plan as stated above and agree with all of its relevant components. [facility] 07-01-2022 History of Present illness Narrative This is a 36 year old female diagnosed upon referral with [facility]. Visual acuity with correction is 20/50 RE and 20/200 LE. IOP 15 /16 . Anterior segment exam is significant for clear lens. Dilated fundus examination demonstrates central atrophy. I recommend sight center and follow up in 1y. I have confirmed and edited as necessary the relevant ophthalmic history, ROS, and the neuro exam findings as obtained by others. I have seen and examined Nori Barros. I have discussed the case and the management of this patient's care with the Resident/Fellow, if applicable. I also have reviewed and agree with the assessment and plan as stated above and agree with all of its relevant components. documented in this encounter [facility] 05-30-2022 Note HNO ID: [id number] Author: Michael Caldwell MD Service: ? Author Type: Physician Type: Progress Notes Filed: 05/30/2022 12:34 PM Note Text: ASSESSMENT/PLAN: 1. [place] macular dystrophy - ICD9: 362.76, ICD10: H35.[address] Clancy's examination and notes today Had previously been told she had recessive macular dystrophy One of her two siblings (brother), and paternal great grandfather, great uncle, uncles have been affected Had relatively normal vision until ~9577-8759 when noticed changes in left eye, now noticing color vision changes in the right eye Some trouble with dark adaptation, worsening photophobia No hearing loss Keep scheduled appointment and Electroretinogram with Dr. Saldana. Michael Caldwell MD I have confirmed and edited as necessary the relevant ophthalmic history, review of systems, surgical history, and ophthalmological examination findings as obtained by the ophthalmic technical staff. I have seen and examined Nori Barros. I have discussed the examination findings, diagnosis, and treatment options with Nori Barros and/or her family. I have also reviewed and agree with the assessment and plan as stated above and agree with all its relevant components. I gave the patient the opportunity to ask questions about the findings, diagnosis, and treatment options. [facility] 01-22-2022 Note HNO ID: [id number] Author: Raghu Yeager MS Service: ? Author Type: ? Type: Progress Notes Filed: 01/22/2022 3:27 PM Note Text: The Monitoring Retinal FPF Signal Patients with Various Retinal Disorders study purpose, design and informed consent was reviewed with patient, including but not limited to a review of R/B/A. The patient was given an opportunity to ask questions and verbalize an understanding of the study. Patient wishes to participate in the study. Consent signed and patient was given a copy. Raghu Yeager MS 01/22/2022 3:27 PM [facility] 01-22-2022 Note HNO ID: [id number] Author: MABEL Shipley Service: ? Author Type: Genetic Counselor Type: Progress Notes Filed: 01/29/2022 8:18 AM Note Text: Patient Name and confirmed at initiation of visit. Dr. Laura Clancy, I requested a genetic consultation for Nori Barros, a 36 year old female, for discussion of her personal history of [place] Macular Dystrophy. Prior to the visit, the genetic counselor reviewed records in the patient's EMR including, but not limited to, available clinic notes, physician consultations, laboratory tests, imaging reports, cardiac studies, and other investigations and evaluations. The genetic counselor also reviewed the case with Dr. Clancy as needed prior to seeing the patient. The patient attended today's appointment alone. HISTORY OF PRESENT CONDITION: Ms. Barros is a 36 year old female who has a personal history of [place] Macular Dystrophy. She has had symptoms since she was in third grade. However, her vision was relatively normal until ~2006 when they began to worsen in her left eye. Recently, she reports difficulty with her right eye.She endorses a history of difficulties with dark adaptation, photophobia, and color discrimination. Nori denied other systemic concerns such as digit anomalies, hearing loss, kidney anomalies, heart problems,and diabetes. Ms. Barros was evaluated today by Dr. Clancy and additional history is available in his note. , , AND HISTORY: - Non-contributory PERTINENT PAST MEDICAL AND SURGICAL HISTORY INCLUDES: PAST MEDICAL HISTORY Diagnosis Date - Asthma Exercise induced - Asthma PAST SURGICAL HISTORY Procedure Laterality Date - UNSPECIFIED ORAL SURGERY PROCEDURE, BY REPORT Gilman Teeth RELEVANT EVALUATIONS TO DATE: Base Eye Exam Visual Acuity (Snellen - Linear) Right Left Both Dist cc 20/25 -2 20/160 Near cc J1 Correction: Contacts + Pt states I can make out portions of the letters OS Tonometry ([facility], 9:04 AM) Right Left Pressure 17 15 Pupils Pupils Dark React APD Right PERRL 6 +2 None Left PERRL 6 +2 None Visual Gustafson Left Right Extraocular Movement Right Left Full Full Neuro/Psych Oriented x3: Yes Mood/Affect: Normal Dilation Both eyes: 1.0% Mydriacyl @ 9:07 AM Refraction Wearing Rx Sphere Cylinder Right -3.00 Sphere Left -2.00 Sphere Type: SVL Additional Tests Color Right Left Ishihara 07/08 10/08 Stereo Animals: 09/30 Circles: 0/9 Slit Lamp and Fundus Exam External Exam Right Left External Normal including orbits and preauricular lymph nodes Normal including orbits and preauricular lymph nodes Slit Lamp Exam Right Left Lids/Lashes Normal lids, lashes, lacrimal glands, and lacrimal drainage Normal lids, lashes, lacrimal glands, and lacrimal drainage Conjunctiva/Sclera White and quiet White and quiet Cornea Normal epithelium, stroma, endothelium, and tear film Normal epithelium, stroma, endothelium, and tear film Anterior Chamber Deep and quiet Deep and quiet Iris Round and dilated Round and dilated Lens Clear Clear Vitreous Normal Normal Fundus Exam Right Left Disc Normal Normal C/D Ratio 0.15 0.15 Macula Central atrophy and staphyloma Central atrophy and staphyloma Vessels Normal Normal Periphery Normal, drusen Normal, drusen Base Eye Exam Visual Acuity (Snellen - Linear) Right Left Both Dist cc 20/25 -2 20/160 Near cc J1 Correction: Contacts + Pt states I can make out portions of the letters OS Tonometry ([facility], 9:04 AM) Right Left Pressure 17 15 Pupils Pupils Dark React APD Right PERRL 6 +2 None Left PERRL 6 +2 None Visual Gustafson Left Right Extraocular Movement Right Left Full Full Neuro/Psych Oriented x3: Yes Mood/Affect: Normal Dilation Both eyes: 1.0% Mydriacyl @ 9:07 AM Refraction Wearing Rx Sphere Cylinder Right -3.00 Sphere Left -2.00 Sphere Type: SVL Additional Tests Color Right Left Ishihara 07/08 10/08 Stereo Animals: 1/3 Circles: 0/9 Slit Lamp and Fundus Exam External Exam Right Left External Normal including orbits and preauricular lymph nodes Normal including orbits and preauricular lymph nodes Slit Lamp Exam Right Left Lids/Lashes Normal lids, lashes, lacrimal glands, and lacrimal drainage Normal lids, lashes, lacrimal glands, and lacrimal drainage Conjunctiva/Sclera White and quiet White and quiet Cornea Normal epithelium, stroma, endothelium, and tear film Normal epithelium, stroma, endothelium, and tear film Anterior Chamber Deep and quiet Deep and quiet Iris Round and dilated Round and dilated Lens Clear Clear Vitreous Normal Normal Fundus Exam Right Left Disc Normal Normal C/D Ratio 0.15 0.15 Macula Central atrophy and staphyloma Central atrophy and staphyloma Vessels Normal Normal Periphery Normal, drusen Normal, drusen -FAF, OCT, and Fundus photos in pro (more content not included)... [facility] 01-22-2022 Note HNO ID: [id number] Author: Laura Clancy I, MD Service: ? Author Type: Physician Type: Progress Notes Filed: 01/22/2022 12:51 PM Note Text: 1. 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 I have seen and examined this patient. I have discussed the case and the management of this patient's care with the Resident/Fellow, if applicable. I also have reviewed and agree with the assessment and plan as stated above and agree with all of its relevant components. Laura Clancy MD January 22, 2022 12:50 PM [facility] documented as of this encounter (statuses as of 01/23/2022) [facility] History of Past illness Narrative* Problem Noted Date Resolved Date Encounter for supervision of normal first in third trimester 12/18/2015 04/09/2016 Hyperemesis affecting , antepartum 08/2804/09/2016 Encounter for supervision of normal first in first trimester 07/13/2015 01/02/2016 documented as of this encounter (statuses as of 07/01/2022) [address]22-2016 History of Past illness Narrative* Problem Noted Date Resolved Date Encounter for supervision of normal first in third trimester 12/18/2015 04/09/2016 Hyperemesis affecting , antepartum 08/2804/09/2016 Encounter for supervision of normal first in first trimester 07/13/2015 01/02/2016 documented as of this encounter (statuses as of 10/13/2022) [address]-2016 History of Past illness Narrative* Problem Noted Date Resolved Date Encounter for supervision of normal first in third trimester 12/18/2015 04/09/2016 Hyperemesis affecting , antepartum 08/2804/09/2016 Encounter for supervision of normal first in first trimester 07/13/2015 01/02/2016 documented as of this encounter (statuses as of 10/16/2022) [address]2016 History of Past illness Narrative* Problem Noted Date Resolved Date Encounter for supervision of normal first in third trimester 12/18/2015 04/09/2016 Hyperemesis affecting , antepartum 08/2804/09/2016 Encounter for supervision of normal first in first trimester 07/13/2015 01/02/2016 documented as of this encounter (statuses as of 10/28/2022) [address]2016 History of Past illness Narrative* Problem Noted Date Diagnosed Date Resolved Date Encounter for supervision of normal first in third trimester 12/18/2015 04/09/2016 Hyperemesis affecting , antepartum 09/10/2015 04/09/2016 Encounter for supervision of normal first in first trimester 07/13/2015 01/02/2016 documented as of this encounter (statuses as of 04/24/2023) [facility] 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 documented in this encounter [facility] Diagnosis [place] macular dystrophy- Primary 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 [facility] Diagnosis Uninodular goiter- Primary Nontoxic uninodular goiter documented in this encounter [facility] Diagnosis Uninodular goiter- Primary Nontoxic uninodular goiter documented in this encounter [facility] Diagnosis Uninodular goiter- Primary Nontoxic uninodular goiter documented in this encounter [facility] Summary Purpose Family History No Family History Records Found Advance Directives No Advanced Directives Records Found Additional Source Comments Source Comments (unrecognize d section and content) In the event this informatio n is protected by the Federal Confidentiality of Alcohol and Drug Abuse Patient Records regulations: The Federal rules restrict any use of the information to criminally investigate or prosecute any alcohol or drug abuse patient.[facility] the event this information is protected by the Federal Confidentiality of Alcohol and Drug Abuse Patient Records regulations: The Federal rules restrict any use of the information to criminally investigate or prosecute any alcohol or drug abuse patient.[facility] the event this information is protected by the Federal Confidentiality of Alcohol and Drug Abuse Patient Records regulations: The Federal rules restrict any use of the information to criminally investigate or prosecute any alcohol or drug abuse patient.[facility] the event this information is protected by the Federal Confidentiality of Alcohol and Drug Abuse Patient Records regulations: The Federal rules restrict any use of the information to criminally investigate or prosecute any alcohol or drug abuse patient.[facility] the event this information is protected by the Federal Confidentiality of Alcohol and Drug Abuse Patient Records regulations: The Federal rules restrict any use of the information to criminally investigate or prosecute any alcohol or drug abuse patient.[facility] the event this information is protected by the Federal Confidentiality of Alcohol and Drug Abuse Patient Records regulations: The Federal rules restrict any use of the information to criminally investigate or prosecute any alcohol or drug abuse patient.[facility] Reason for Visit (unrecogniz ed section and content) Reason Comments Consult Thyroid consult Reason Comments Procedure Right thyroid fna Reason Comments Follow Up Thyroid pathology Care Teams (unrecognized sec tion and content) Hand Ii Cutter Relationship Specialty Start Date End Date Radha Emanuel [address] [facility] [address] [place] [address] PCP - General Family Medicine 09/26/22 Carlos Le [address] [place] [address] Ophthalmology 05/22/22 Hand Ii Cutter Relationship Specialty Start Date End Date Radha Emanuel [address] [facility] [address] [place] [address] PCP - General Family Medicine 09/26/22 Carlos Le [address] [place] [address] Ophthalmology 05/22/22 Hand Ii Cutter Relationship Specialty Start Date End Date Radha Emanuel [address] [facility] [address] [place] [address] PCP - General Family Medicine 09/26/22 Carlos Le [address] [place] [address] Ophthalmology 05/22/22 Hand Ii Cutter Relationship Specialty Start Date End Date Radha Emanuel [address] [facility] [address] [place] [address] PCP - General Family Medicine 09/26/22 Carlos Le [address] [place] [address] Ophthalmology 05/22/22 INFORMATION SOURCE (unrecogn ized section and content) FOR RECORDS PERTAINING TO PATIENTS WHO ARE OR HAVE BEEN ENROLLED IN A CHEMICAL DEPENDENCY/SUBSTANCEABUSE PROGRAM, SOME INFORMATION MAY BE OMITTED. This clinical summary was aggregated from multiple sources. Caution should be exercised in using it in the provision of clinical care. This summary normalizes information from multiple sources, and as a consequence, information in this document may materially change the coding, format and clinical context of patient data. In addition, data may be omitted in some cases. CLINICAL DECISIONS SHOULD BE BASED ON THE PRIMARY CLINICAL RECORDS. [employer] [facility]. provides no warranty or guarantee of the accuracy or completeness of information in this document.
== END | disposition home or self-care (01) ==
PROVIDERS: PCP Family Medicine; Referring Provider Family Medicine; Visit Provider Family Medicine
DX: N89.8 Other specified noninflammatory disorders of vagina (principal); E04.1 Nontoxic single thyroid nodule
CPT/HCPCS: 76536; 87070; 87205

== ENCOUNTER → 2024-02-01 | Outpatient (CLI) | payer OTHER, SELFPAY | END | disposition home or self-care (01) | LOC: LABSPEC 16:41 | PROVIDERS: PCP Family Medicine; Referring Provider Nurse Practitioner Family; Visit Provider Nurse Practitioner Family | DX: N89.8 Other specified noninflammatory disorders of vagina (principal) | CPT/HCPCS: 87070; 87205 ==

== ENCOUNTER → 2024-02-11 | Outpatient (CLI) | payer OTHER, SELFPAY ==
[2024-02-11 15:01] LABS: Absolute Lymphocyte Count 1.91 X10^3/uL (0.83-4.51); Absolute Neutrophil Count 5.7 X10^3/uL (2.0-7.7); Basophil# 0.05 X10^3/uL; Basophil% 0.6 % (0-1); Eosinophils% 2.3 % (0-5); Hematocrit 38.5 % (37-47); Lymphocyte # 1.91 X10^3/ul (0.83-4.51); Lymphocyte % 22.2 % (19-41); Mean Corp Hgb Conc 33.8 g/dL (32-36); Mean Corpuscular Hgb 29.5 pg (27.0-32.0); Mean Corpuscular Volume 87.3 fL (81-99); Mean Platelet Vol. 11.3 fl (6.2-12.0); Monocyte# 0.69 X10^3/uL; NRBC Flagged by Analyzer 0 % (0-5); Neutrophil # 5.73 X10^3/uL (2.7-7.7); Neutrophil % 66.7 % (47-70); Platelet Count 256 K/mm3 (150-450); RBC Distribution Width CV 13.3 % (11.6-14.6); RBC Distribution Width SD 42.2 fl (35.1-43.9); Red Blood Count 4.41 M/mm3 (4.2-5.4); White Blood Count 8.6 K/mm3 (4.4-11.0)
[2024-02-11 15:41] LABS: ALB/GLOB Ratio 1.2 RATIO (0.9-2.4); AST(SGOT) 12 U/L (15-37); Alanine Aminotransfer ALT/SGPT 30 U/L (13-56); Albumin, Serum 3.9 g/dL (3.2-5.0); Alkaline Phosphatase 65 U/L (45-117); Anion Gap 6 (5-15); BUN 10 mg/dL (7-18); BUN/Creat Ratio 13.7 RATIO (10-20); Calcium,Total 8.9 mg/dL (8.5-10.1); Chloride 107 mmol/L (98-107); Creatinine, Serum 0.73 mg/dL (0.55-1.02); EST Glomerular Filtration Rate 96 mL/min (>60); Est Glom Filt Rate - Afr Amer 116 mL/min (>60); Globulin 3.3 g/dL (2.2-4.2); Glucose 105 mg/dL (74-106); Potassium 3.7 mmol/L (3.5-5.1); Protein, Total 7.2 g/dL (6.4-8.2); Sodium Level 137 mmol/L (136-145)
[2024-02-11 18:04] LABS: Vitamin D,25 Hydroxy 36.1 ng/mL
== END | disposition home or self-care (01) ==
LOC: MFPLAB 13:55
PROVIDERS: PCP Family Medicine; Visit Provider Family Medicine
DX: E55.9 Vitamin D deficiency, unspecified (principal); J45.20 Mild intermittent asthma, uncomplicated
CPT/HCPCS: 36415; 80053; 82306; 85025

== ENCOUNTER → 2024-02-29 | Outpatient (CLI) | payer OTHER, SELFPAY ==
[2024-02-29 16:04] LABS: Hemoglobin A1c 5.1 % (3.8-5.6)
== END | disposition home or self-care (01) ==
PROVIDERS: PCP Family Medicine; Referring Provider Family Medicine; Visit Provider Family Medicine
DX: R73.09 Other abnormal glucose (principal)
CPT/HCPCS: 36415; 83036

== ENCOUNTER → 2024-08-31 | Outpatient (CLI) | payer OTHER, SELFPAY ==
[2024-08-31 17:57] LABS: Absolute Lymphocyte Count 2.12 X10^3/uL (0.83-4.51); Absolute Neutrophil Count 5.9 X10^3/uL (2.0-7.7); Basophil# 0.07 X10^3/uL; Basophil% 0.8 % (0-1); Eosinophil# 0.28 X10^3/uL; Eosinophils% 3.1 % (0-5); Hematocrit 42.4 % (37-47); Hemoglobin 13.8 g/dL (12.0-15.0); Lymphocyte # 2.12 X10^3/ul (0.83-4.51); Lymphocyte % 23.2 % (19-41); Mean Corp Hgb Conc 32.5 g/dL (32-36); Mean Corpuscular Hgb 28.9 pg (27.0-32.0); Mean Corpuscular Volume 88.7 fL (81-99); Mean Platelet Vol. 11.5 fl (6.2-12.0); Monocyte% 7.7 % (0-10); NRBC Flagged by Analyzer 0 % (0-5); Neutrophil # 5.94 X10^3/uL (2.7-7.7); Neutrophil % 64.9 % (47-70); Platelet Count 270 K/mm3 (150-450); RBC Distribution Width CV 12.7 % (11.6-14.6); RBC Distribution Width SD 41.5 fl (35.1-43.9); Red Blood Count 4.78 M/mm3 (4.2-5.4); White Blood Count 9.1 K/mm3 (4.4-11.0)
[2024-08-31 18:22] LABS: ALB/GLOB Ratio 1.1 RATIO (0.9-2.4); AST(SGOT) 11 U/L (15-37); Alanine Aminotransfer ALT/SGPT 30 U/L (13-56); Albumin, Serum 3.9 g/dL (3.2-5.0); Alkaline Phosphatase 50 U/L (45-117); Anion Gap 8 (5-15); BUN 13 mg/dL (7-18); BUN/Creat Ratio 16.6 RATIO (10-20); Calcium,Total 9.3 mg/dL (8.5-10.1); Chloride 105 mmol/L (98-107); Creatinine, Serum 0.78 mg/dL (0.55-1.02); EST Glomerular Filtration Rate 88 mL/min (>60); Est Glom Filt Rate - Afr Amer 107 mL/min (>60); Globulin 3.5 g/dL (2.2-4.2); Glucose 94 mg/dL (74-106); Potassium 3.8 mmol/L (3.5-5.1); Protein, Total 7.4 g/dL (6.4-8.2); Sodium Level 138 mmol/L (136-145)
[2024-09-01 09:28] LABS: Vitamin D,25 Hydroxy 28.4 ng/mL
== END | disposition home or self-care (01) ==
LOC: MFPLAB 15:27
PROVIDERS: PCP Family Medicine; Referring Provider Family Medicine; Visit Provider Family Medicine
DX: E55.9 Vitamin D deficiency, unspecified (principal); J45.20 Mild intermittent asthma, uncomplicated
CPT/HCPCS: 36415; 80053; 82306; 85025

== ENCOUNTER → 2024-09-14 | Outpatient (CLI) | payer OTHER, SELFPAY ==
--- NOTE | 2024-09-14 16:12 | RAD_ITS ---
STUDY: X-RAY CHEST REASON FOR EXAM: Female, 38 years old. cough TECHNIQUE: PA and lateral COMPARISON: July 30, 2022 FINDINGS: The lungs are clear and expanded. There is no demonstrated pleural abnormality. Normal size heart. Normal mediastinum and brigida. Normal visualized pulmonary arteries. Normal visualized aortic arch and descending thoracic aorta. Normal visualized thoracic spine. Normal visualized ribs, clavicles, and shoulders. There is no demonstrated abnormality of the visualized soft tissue structures of the upper abdomen. RAD/Chest PA and Lateral IMPRESSION: Normal x-ray examination of the chest. Electronically Signed: Mitchell Juarez MD at 16:59 EST ,
== END | disposition home or self-care (01) ==
LOC: MTRAD 16:11
PROVIDERS: PCP Family Medicine; Referring Provider Physician Assistant; Visit Provider Physician Assistant
DX: R05.9 Cough, unspecified (principal)
CPT/HCPCS: 71046

== ENCOUNTER → 2024-11-11 | Outpatient (CLI) | payer OTHER, SELFPAY ==
--- NOTE | 2024-11-11 13:03 | US_ITS ---
PROCEDURE: THYROID REASON FOR EXAM: Nodule TECHNIQUE: Thyroid ultrasound COMPARISON: 10/02/2023 FINDINGS: Thyroid gland is heterogeneous Right thyroid lobe measures 5.2 x 1.7 x 1.5 cm. Left thyroid lobe measures 4.2 x 1.3 x 1.3 cm. Isthmus thickness is. Thyroid Size: Normal Background Echotexture: Normal Thyroid Nodules: Right lesion 1: Solid isoechoic nodule with smooth margins and vascularity measuring 0.8 x 0.7 x 0.6 cm. TI-RADS 3 Right lesion 2: Mixed hypoechoic nodule with smooth margins measuring 0.5 x 0.5 x 0.2 cm TI-RADS 3 Left lesion 1: Cystic hypoechoic nodule smooth margins measuring 0.2 x 0.3 x 0.2 cm. TI-RADS 1 US/Thyroid IMPRESSION: TI-RADS 3 right thyroid nodules. No follow-up recommended given size. Reading Location: [facility]
== END | disposition home or self-care (01) ==
LOC: US 13:02
PROVIDERS: Obstetrics & Gynecology; PCP Family Medicine; Referring Provider Family Medicine; Visit Provider Family Medicine
DX: N90.89 Other specified noninflammatory disorders of vulva and perineum (principal)
CPT/HCPCS: 36415; 76536; 86695; 86696; 87070; 87077; 87186; 87205

== ENCOUNTER 2025-07-15 05:50 | Emergency (ER) | payer OTHER, SELFPAY ==
[2025-07-15 05:51] VITALS: BP 143/86; PULSE 85; RESP 18; TEMP 36.5; O2SAT 99; BMI 30.9
--- NOTE | 2025-07-15 06:13 | EX.ED.UPPERE ---
HPI History of Present Illness Chief Complaint: Upper Extremity Injury Informant: patient and spouse/S.O. Narrative Narrative: Patient is a 39-year-old female with past medical history of anxiety and depression. She states she went to bed feeling normal and awoke with pain along the left neck and left shoulder radiating down the left arm. She states there has been no recent trauma. She denies any excessive use of the extremity. She states the pain is worse with palpation and motion. She reports that she has not had any sick symptoms such as fevers or chills. She denies any overlying redness. She states that as she went to bed feeling normal but then awoke with this pain in the left arm she was unsure if it was related to muscle spasm or nerve compression or something different and therefore comes in for evaluation Patient is right-hand dominant [facility] Medical History Right lower lobe pulmonary infiltrate Pelvic pain Pelvic pain Thyromegaly Back problem Asthma Encounter for IUD insertion Home Medications ?Medication ?Instructions ?Recorded ?Last Taken ?Type albuterol sulfate 90 mcg/actuation 1 - 2 inh inhalation Q4H PRN PRN 06/25/21 Unknown History aerosol inhaler sob L.acid,tracie-B.animal,bifid, 1 cap PO DAILY 11/11/24 Unknown History 50 billion cell capsule,delayed rel ([employer] [place] [employer] Probiotic) levonorgestrel 20.4 mcg/24 hr (up 1 device intrauterine ONCE 11/11/24 Unknown History to 8 yrs) 52 mg intrauterine device (Liletta) loratadine 10 mg tablet (Claritin) 10 mg PO QDAY 11/11/24 Unknown History sertraline 50 mg tablet 50 mg PO DAILY #30 tabs 11/11/24 Unknown Rx tiotropium bromide 1.25 2 puff inhalation Q24H 11/11/24 Unknown History mcg/actuation mist for inhalation (Spiriva Respimat) nystatin-triamcinolone 100,000 1 applic topical TID #15 grams 11/14/24 Unknown Rx unit/gram-0.1 % topical ointment prednisone 10 mg tablet 10 mg PO QDAY #30 tabs 06/26/25 Unknown Rx gabapentin 300 mg capsule 300 mg PO TID 14 days #42 caps 07/15/25 Unknown Rx methocarbamol 500 mg tablet 1,000 mg (2 x 500 mg) PO 4X/DAY 07/15/25 Unknown Rx PRN Muscle pain/spasm #56 tabs Allergy/AdvReac Type Severity Reaction Status Date / Time nitrofurantoin (From AdvReac Intermediate dizzy Verified 07/15/25 05:51 Macrobid) Family History Grandfather Diabetes Hypertension Grandfather Cancer Throat Son Asthma Surgical History History of wisdom tooth extraction, class IV edentulism Social History adopted: No household members: family housing: house number of children: 2 current occupational status: employed current occupation: [employer] current occupational exposures/hazards: Yes pets and animals: Yes history of recent travel: No Smoking Status: Never smoker alcohol intake: current alcohol intake frequency: holidays/special occasions only substance use type: does not use seatbelt use: always do you feel safe at home: Yes additional social history: - [facility] ED Constitutional Constitutional ED: Denies chills or fever(s) Eyes Eyes: Denies blurry vision or change in vision ENT ENT ED: Denies sore throat Cardiovascular Cardiovascular: Denies chest pain, palpitations or racing heartbeat Respiratory/Chest Respiratory/Chest: Denies cough or dyspnea Gastrointestinal Gastrointestinal: Denies abdominal pain, diarrhea, nausea or vomiting Musculoskeletal Musculoskeletal: Reports other Details: Positive left shoulder pain/spasm Integumentary Denies Abrasions or rash Neurologic Neurologic: Denies headache(s) or paresthesias Psychiatric Psychiatric: Reports anxiety Hematologic/Lymphatic Hematologic/Lymphatic: Denies easy bleeding or easy bruising EXAM Physical Exam Const Vital Signs: 07/15/25 05:51 Temperature 97.7 F L Temperature Source Oral Pulse Rate 85 Respiratory Rate 18 Blood Pressure 143/86 H Blood Pressure Mean 105 Pulse Ox 99 Oxygen Delivery Method Room Air Positive well nourished and well developed General Appearance ED: well developed HEENT HEENT Narrative: Normocephalic atraumatic Eyes PERRL and EOMs intact bilaterally Neck supple Neck Narrative: No bony deformity or step-off of the cervical spine No midline tenderness to palpation There is mild left-sided paracervical tension and spasm noted that does worsen with sidebending and rotation most consistent with SCM muscle spasm/strain. Negative Spurling sign Resp normal respiratory effort and clear to auscultation bilaterally Cardio regular rate and regular rhythm Cardio Narrative: Heart is regular rate and rhythm without murmurs rubs or gallops Radial and carotid pulses are equal and symmetric No carotid bruit present Extremity Extremity Narrative: Left upper extremity is neurovascularly intact; AIN/PIN are intact and normal. No overlying erythema or warmth to suggest infection. No abrasions or ecchymosis to suggest trauma. No joint effusion present. Negative sulcus sign. No bony deformity noted. There is reproducible pain with palpation near the coracoid process. Patient has pain with diffuse range of motion such as external rotation internal rotation front shoulder raising and abduction. However strength is still normal. All compartments are soft and compressible going against compartment syndrome Remainder of the exam is normal Neuro oriented x3, CN's II-XII intact bilaterally, moves all extremities, no focal motor deficits and no sensory deficits noted Neuro Narrative: GCS of 15 Cranial nerves II through XII are grossly intact without focal neurologic deficit NIH stroke scale score of 0 Patient was paresthesias in the left arm but when she is stressed between soft and sharp sensation in multiple dermatomes she is able to differentiate between 2 without difficulty. Sensorium / Orientation: alert Psych Mood & Affect: anxious Skin no rashes or lesions noted Skin Narrative: No overlying soft tissue changes to suggest trauma or infection MDM MDM MDM Narrative Medical decision making narrative: Patient arrived to the ER with stable vitals. She reported pain along the left neck and shoulder region. She states that she went to bed without issues and then awoke feeling this way. She also reports pain is worse with motion. By physical exam she does not have report or signs of trauma and therefore I have low concern for a shoulder dislocation or shoulder fracture. Physical exam also does not suggest labrum tear or rotator cuff injury. With a negative Spurling sign symptoms are not consistent with cervial disc disease/rupture disc. Without overlying erythema or warmth I have low concern for cellulitis or abscess or gout. She is afebrile she does not have sick symptoms and she is stable to move the joint and therefore I have low concern that this is septic joint. Also her NIH stroke scale score is 0 she does not have any focal neurologic deficits I do not feel the reported paresthesias in the hand/arm are related to an acute CVA so there is no need for an acute stroke alert. Therefore at this time I do not feel there is need for imaging or laboratory studies based on the rationale above. As her symptoms and exam indicate this is most likely superficial nerve is compression from muscle spasm most likely due to the fact she was sleeping in a typical/awkward position she was given Toradol and Norflex and gabapentin. After receiving treatment she did note improvement of her symptoms and she remained neurovascularly intact. Therefore she be placed on gabapentin and Robaxin to help with muscle tension and spasm causing superficial nerve compression but is otherwise safe for discharge. History & Record Review Discussion w/independent historian: Patient and Significant other Discharge Plan Triage Chief Complaint: Upper Extremity Injury Other Complaint: Numb/Ting ED Provider: Daryl Stone Dx/Rx/DC Orders Clinical Impression: Muscle spasm, Left shoulder pain, Radiculopathy affecting upper extremity Instructions: ED Muscle Spasm, ED Neck Spasm, No Trauma Prescriptions: New gabapentin 300 mg capsule 300 mg PO TID 14 Days Qty: 42 0RF methocarbamol 500 mg tablet 1,000 mg PO 4X/DAY PRN (Reason: Muscle pain/spasm) Qty: 56 1RF No Action loratadine [Claritin] 10 mg tablet 10 mg PO QDAY [employer] [place] [employer] Probiotic 50 billion cell capsule,delayed release(DR/EC) 1 cap PO DAILY Spiriva Respimat 1.25 mcg/actuation mist 2 puff inhalation Q24H Liletta 20.4 mcg/24 hr (8 yrs) 52 mg intrauterine device 1 device intrauterine ONCE Rx Instructions: as a single dose sertraline 50 mg tablet 50 mg PO DAILY Qty: 30 12RF prednisone 10 mg tablet 10 mg PO QDAY Qty: 30 0RF Rx Instructions: 4 tablets daily x3 days, then 3 tablets daily x3 days, then 2 tablets daily x3 days, then 1 tablet daily x3 days albuterol sulfate 90 mcg/actuation HFA aerosol inhaler 1 - 2 inh INHALATION Q4H PRN PRN (Reason: sob) nystatin-triamcinolone 100,000-0.1 unit/gram-% ointment 1 applic topical TID Qty: 15 4RF Primary Care Provider: Micheal Napoles Referrals: Micheal Napoles MD [Primary Care Provider, Family Practice] Activity Restrictions/Additional Instructions: Your history and exam would suggest that your neck/shoulder pain is related to muscle tension and spasm most likely from sleeping in an awkward position. This is causing superficial nerve compression leading to your sensation of numbness and tingling. Take the prescribed medication as directed to help resolve symptoms. Continue to stretch and heat the area to reduce pain and speed healing as well. You can continue [id number] medication such as Tylenol and Motrin with the prescribed meds and use topical treatments such as lidocaine patches and IcyHot. If symptoms worsen or you have any further concerns please return to the ER for repeat evaluation Print Language: Nepali Disposition Disposition: Home, Self Care
[2025-07-15] MEDS: Orphenadrine 60 MG/2 ML Ampul IM (06:23)
--- OUTSIDE RECORDS SUMMARY | 2025-07-15 06:24 | XMS RPT_ITS | CCD ---
Author Organization [facility] Care Team Providers Care Pear Picker Name Role Phone Angela Wagner MD Unavailable [phone] Unavailable Primary Care Provider UnavailCarlos Leal Unavailable Dr. Radha Emanuel Primary Care Provider Dr. Radha Emanuel Referring Provider Dr. Angela Wagner Attending Provider Carlos Le Unavailable Radha Emanuel Primary Care Provider GALEN WELCH Attending Unavailable RADHA EMANUEL Referring UnavailRADHA Kinney Primary Care UnavailGALEN Allen Attending Unavailable RADHA EMANUEL Primary Care UnavailGALEN Allen Attending Unavailable RADHA EMANUEL Primary Care Unavailkahlil e TRABLASHANDA, LAURA Attending Unavailable MARI WONG Attending Unavailable TRABOULSI, LAURA Referring Unavailable TRABOULSI, LAURA Referring Unavailable MELANIE CALDWELL Attending Unavailable DIOMEDES SALDANA Attending Unavailable TRABOULSI, LAURA Referring Unavailable TRABOULSI, LAURA Referring Unavailable Radha Emanuel Primary Care Provider Dr. Radha Emanuel Primary Care Provider Dr. Radha Emanuel Referring Provider LOIDA Gonzalez Attending Provider Dr. Angela Wagner Attending Provider [phone] Dr. Radha Emanuel Primary Care Provider Dr. Radha Emanuel Referring Provider JULIANE Chung Attending Provider JULIANE Young Attending Provider [phone] Radha Emanuel MD Primary Care Provider RADHA EMANUEL Primary Care Unavailable PROVIDER, UNKNOWN Referring Unavailable Dr. Radha Emanuel MD Primary Care Physician Dr. Radha Emanuel MD Referring Provider [phone] Tank Gonzalez Attending Physician Radha Emanuel Primary Care Unavailable Tank Gonzalez Attending Unavailable Radha Emanuel Referring Unavailable Angela Wagner Attending Unavailable Radha Emanuel Referring Unavailable Radha Emanuel Primary Care Unavailable Tank Gonzalez Attending Unavailable Radha Emanuel Referring Unavailable Radha Emanuel Primary Care Unavailable Radha Emanuel Primary Care Unavailable Tank Gonzalez Attending Unavailable Tank Gonzalez Referring Unavailable Radha Emanuel Attending Unavailable Radha Emanuel Referring Unavailable Radha Emanuel Primary Care Unavailable Radha Emanuel Primary Care Unavailable Radha Emanuel Attending Unavailable Radha Emanuel Referring Unavailable Allergies Allergy Classification Reported Allergen(s) Allergy Type Date of Onset Reaction(s) Facility (16 sources) Nitrofurantoin; Translations: [NITROFURANTOIN] Drug Allergy 1 Other: See Comments [facility] Comment on above: Feels dizzy and not well. Reacted in 11/18 and 07/18 (7 sources) NITROFURANTOIN, MACROCRYSTALS / Nitrofurantoin, Monohydrate; Translations: [NITROFURANTOIN MONOHYD/M-CRYST] Drug Allergy 3 [facility] (1 source) Nitrofurantoin Drug Allergy 5 [facility] Repository Medications Current Medications Medication Drug Class(es) Dates Sig (Normalized) Sig (Original) [id number] 200 actuat albuterol 0.09 mg/actuat metered dose inhaler (20 sources) beta2-Adrenergic Agonist Start: 06-25-2021 Albuterol Sulfate 90 mcg/actuation HFA aerosol inhaler Active 1 - 2 NMA INHALATION EVERY 4 HOURS NEEDED as needed for sob June 25, 2021 12:00am Complies with drug therapy Start: 06-25-2021 Albuterol Sulf ate Active 1 - 2 INH INHALATION EVERY 4 HOURS NEEDED June 25, 2021 12:00am Start: 06-02-2021 albuterol (PRO VENTIL) 2.5 mg /3 mL (0.083 %) nebulizer solution Indications: Mild intermittent asthma with acute exacerbation Use 3 mL via nebulizer every 4 hours as needed for wheezing/shortness of breath. Use over 5-15minutes. 3 mL 0 06/02/2021 Active Start: 03-14-2016 take 2 puff(s) by in halation every four hours as needed albuterol HFA (PROAIR HFA) 90 mcg/actuation inhaler Inhale 2 Puffs as instructed every 4 hours as needed. 1 Inhaler 0 03/14/2016 Active Comment on above: Inhale 2 Puffs as in structed every 4 hours as needed. Use 3 mL via nebuliz er every 4 hours as needed for wheezing/shortness of breath. Use over 5-15minutes. benoxinate hydrochloride 4 mg/ml / fluorescein sodium 2.5 mg/ml ophthalmic solution (1 source) Diagnostic Dye Start: 07-01-20 End: 07-02-20 fluorescein-benoxinate 0.25-0.4 % 1 Drop (FLURESS) Breast Pump karen (7 sources) Start: 01-02-20 Breast Pump karen As directed 1 Device 0 01/02/2016 Active Comment on above: As directed DOCOSAHEXANOIC ACID ( DHA ORAL) (7 sources) DOCOSAHEXANOIC A DEYANIRA ( DHA ORAL) Take by mouth. 0 Active Comment on above: Take by mouth. famotidine 20 mg oral tablet (19 sources) Histamine-2 Receptor Antagonist Start: 02-05-20 17 End: 07-02-20 17 take 1 tablet by mouth twice daily as needed famotidine (PEPCID) 20 mg tablet Indications: Encounter for supervision of other normal in first trimester , Short interval between pregnancies affecting in first trimester, antepartum Take 1 tablet by mouth twice daily as needed. 60 tablet 6 02/04/2017 Active Start: 02-24-2016 End: 12-11-2017 take 1 tablet by mouth once daily Famotidine 20 MG tablet Discontinued 20 mg PO DAILY February 24, 2016 12:00am December 11, 2017 10:55am Comment on above: Take 1 tablet by rochelle th twice daily as needed. fluticasone (7 sources) Corticosteroid fluticasone prop ionate (FLONASE NASAL) Use in the nose. 0 Active Comment on above: Use in the nose. L.Acid,Christopher-B.Anim,Bifid, Infan ([employer] Probiotic) 50 billion cell capsule,delayed release(DR/EC) (1 source) Start: 11-11-2024 L.Acid,Christopher-B.Anim,Bifid ,Infan ([employer] Probiotic) 50 billion cell capsule,delayed release(DR/EC) Active 1 NMA PO DAILY November 11, 2024 1:00am Complies with drug therapy levonorgestrel 0.154373 mg/hr intrauterine system (3 sources) Progestin, Progestin-containing Intrauterine Device Start: 11-11-2024 Levonorgestrel (Liletta) 20.4 mcg/24 hr (8 yrs) 52 mg intrauterine device Active 1 NMA INTRA-UTER ONCE November 11, 2024 1:00am as a single dose Complies with drug therapy Start: 07-02-2017 LILETTA (52 MG ) IUD take as directed LEVONORGESTREL IUD [id number] Vickie Rudd MD loratadine 10 mg oral tablet (1 source) Start: 11-11-2024 take 1 tablet by mouth once daily Loratadine (Claritin) 10 mg tablet Active 10 mg PO daily November 11, 2024 1:00am Complies with drug therapy metoclopramide 10 mg oral tablet (7 sources) Dopamine-2 Receptor Antagonist Start: 10-13-2016 take 1 tablet by mouth four times daily metoclopramide HCl (REGLAN) 10 mg tablet Take 1 tablet by mouth four times daily. 60 tablet 2 10/13/2016 Active Comment on above: Take 1 tablet by rochelle th four times daily. nystatin 100 unt/mg / triamcinolone acetonide 0.001 mg/mg topical ointment (1 source) Polyene Antifungal, Corticosteroid Start: 11-14-2024 Nystatin-Triamcinol one 100,000-0.1 unit/gram-% ointment Active 1 NMA TOPICAL THREE TIMES A DAY 15 November 14, 2024 1:00am Complies with drug therapy omeprazole 20 mg delayed release oral capsule (7 sources) Proton Pump Inhibitor Start: 04-06-2017 take 1 capsule by mouth once daily omeprazole (PRILOSEC) 20 mg capsule Take 1 capsule by mouth once daily. 30 capsule 0 04/06/2017 Active Comment on above: Take 1 capsule by [facility] once daily. oseltamivir 75 mg oral capsule (7 sources) Neuraminidase Inhibitor Start: 11-14-2016 take 1 capsule by mouth once daily oseltamivir (TAMIFLU) 75 mg capsule Take 1 capsule by mouth once daily. 5 capsule 0 11/14/2016 Active Comment on above: Take 1 capsule by [facility] once daily. OTC NUTRITIONAL SUPPLEMENT (7 sources) OTC NUTRITIONAL SUPPLEMENT Kristi Racquel, Pt is taking 3 capsules daily. 0 Active Comment on above: Kristi Clement, Pt is taking 3 capsules daily. phenylephrine hydrochloride 25 mg/ml ophthalmic solution (1 source) alpha-1 Adrenergic Agonist Start: 07-01-2022 End: 07-02-2022 PHENYLephrine 2.5 % 1 Drop (AK-DILATE, ANGEL-SYNEPHRINE) predniSONE 10 mg oral tablet (20 sources) Start: 06-26-2025 take 4 tablets by mouth once daily, then take 3 tablets by mouth once daily, then take 2 tablets by mouth once daily, then take 1 tablet by mouth once daily Prednisone 10 mg tablet Active 10 mg PO daily June 26, 2025 12:00am 4 tablets daily x3 days, then 3 tablets daily x3 days, then 2 tablets daily x3 days, then 1 tablet daily x3 days Complies with drug therapy Start: 01-30-2024 End: 09-14-2024 take 4 tablets by mouth once daily, then take 3 tablets by mouth once daily, then take 2 tablets by mouth once daily, then take 1 tablet by mouth once daily at mealtime Prednisone 10 mg tablet Discontinued 10 mg PO As Directed January 30, 2024 12:00am September 14, 2024 5:26pm see taper instructions by mouth Take 4 tablets once day for 3 days, then take 3 tablets daily for 3 days, then take 2 tablets daily for 3 days, then take 1 tablet daily for 3 days take with food Start: 06-02-2021 End: 10-02-2023 take 4 tablets by mouth once daily, then take 3 tablets by mouth once daily, then take 2 tablets by mouth once daily, then take 1 tablet by mouth once daily Prednisone 10 mg tablet Discontinued 10 mg PO As Directed June 20, 2023 12:00am October 02, 2023 5:07pm 4 tablets daily x3 days, then 3 tablets daily x3 days, then 2 tabs daily x3 days, then 1 tablet daily x3 days Start: 05-03-2018 End: 05-15-2018 Prednisone 10 mg tablet Discontinued 10 mg PO daily 30 May 03, 2018 12:00am May 14, 2018 12:00am May 15, 2018 12:09am Unspecified contact dermatitis, unspecified cause Take 4 tabs once daily days 1-3 3 tabs once daily days 4-6 2 tabs once daily days 7-9 and 1 tab once daily days 10-12. Comment on above: To be taken orally a s directed. Take 4 tabs x4 days, then 2 tabs for 3 days, then 1 tab for 3 days. VIT/IRON FUMARATE/FA ( ORAL) (7 sources) VIT/IRO N FUMARATE/FA ( ORAL) Take by mouth. 0 Active Comment on above: Take by mouth. sertraline 50 mg oral tablet (18 sources) Serotonin Reuptake Inhibitor Start: 11-11-2024 take 1 tablet by mouth once daily Sertraline 50 mg tablet Active 50 mg PO DAILY 26 09November 11, 2024 3:20pm Complies with drug therapy Start: 10-02-2023 End: 11-11-2024 take 2 tablets by mouth once daily Sertraline (Zoloft) 25 mg tablet Discontinued 50 mg PO DAILY October 02, 2023 5:07pm November 11, 2024 3:21pm Start: 09-11-2022 End: 10-02-2023 take 1 tablet by mouth once daily Sertraline (Zoloft) 25 mg tablet Discontinued 25 mg PO DAILY September 11, 2022 1:00am October 02, 2023 5:07pm Start: 12-12-2021 take 1 tablet by rochelle once daily sertraline (ZOLOFT) 50 mg tablet Take 50 mg by mouth once daily. 0 12/12/2021 Active Comment on above: Take 50 mg by mouth once daily. 60 actuat tiotropium 0.56082 mg/actuat inhalation spray (9 sources) Anticholinergic Start: 11-11-19 take 1.25 ug by inhalation every twenty-four hours Tiotropium Priddy (Spiriva Respimat) 1.25 mcg/actuation mist Active 2 NMA INHALATION Q24H November 11, 2024 1:00am Complies with drug therapy Start: 06-25-2021 End: 10-02-2023 take 1.25 ug by inhalation once daily Tiotropium Priddy (Spiriva Respimat) 1.25 mcg/actuation mist Discontinued 2 NMA INHALATION DAILY June 25, 2021 12:00am October 02, 2023 5:07pm tropicamide 10 mg/ml ophthalmic solution (1 source) Anticholinergic Start: 07-01-2022 End: 07-02-2022 tropicamide 1 % 1 Drop (MYDRIACYL) Completed/Discontinued Medications Medication Drug Class(es) Dates Sig (Normalized) Sig (Original) acetaminophen 325 mg / oxyCODONE hydrochloride 5 mg oral tablet (8 sources) Opioid Agonist Start: 05-01-2017 End: 11-23-2017 Oxycodone-Acetamino phen 1 TABLET tablet Discontinued 2 {tbl} PO EVERY 4 HOURS NEEDED as needed for Moderate-Severe pain 10 May 01, 2017 12:00am November 23, 2017 10:51am Start: 05-01-2017 End: 11-23-2017 take 2 tablets by mouth every four hours as needed Oxycodone-Acetaminophen Discontinued 2 TABLET PO EVERY 4 HOURS NEEDED May 01, 2017 12:00am November 23, 2017 10:51am amoxicillin 500 mg oral capsule (3 sources) Penicillin-class Antibacterial Start: 09-29-2023 End: 10-09-2023 take 1 capsule by mouth three times daily Amoxicillin 500 mg capsule Discontinued 500 mg PO THREE TIMES A DAY 30 10 0 September 29, 2023 1:00am October 08, 2023 1:00am October 09, 2023 1:05am amoxicillin 875 mg / clavulanate 125 mg oral tablet (8 sources) Penicillin-class Antibacterial Start: 12-11-2017 End: 12-21-2017 Amoxicillin-Pot Clavulanate (Augmentin) 875-125 mg tablet Discontinued 1 {tbl} PO Q12H 20 10 0 December 11, 2017 12:00am December 20, 2017 12:00am December 21, 2017 12:06am Acute sinusitis, unspecified azithromycin 250 mg oral tablet (3 sources) Macrolide Antimicrobial Start: 09-14-2024 End: 11-11-2024 Azithromycin 250 mg tablet Discontinued 0 PO .COMPLEX 6 0 September 14, 2024 1:00am November 11, 2024 2:35pm For 250 mg dose pack: take 500 mg today (day 1), then 250 mg for 4 days (days 2-5) PO Start: 07-20-2017 AZITHROMYCIN 2 50 MG TABS 2 tablets on day 1, then 1 tablet daily on days 2-5 AZITHROMYCIN [id number] Tank MARISCAL cetirizine hydrochloride 10 mg oral tablet (15 sources) Histamine-1 Receptor Antagonist Start: 12-20-2018 End: 10-02-2023 take 1 tablet by mouth once daily Cetirizine (Zyrtec) 10 mg tablet Discontinued 10 mg PO DAILY December 20, 2018 12:00am October 02, 2023 5:07pm cetirizine HCl ( ZYRTEC ORAL) Take by mouth. 0 Active Comment on above: Take by mouth. cholecalciferol 0.025 mg oral capsule (1 source) Vitamin D Start: 11-11-19 End: 06-26-20 25 take 1 capsule by mouth once daily Cholecalciferol (Vitamin D3) 25 mcg (1,000 unit) capsule Discontinued 25 ug PO daily November 11, 2024 1:00am June 26, 2025 4:12pm docosahexaenoate (4 sources) Start: 04-20-20 17 take 1 tablet by mouth once daily DHA COMPLETE 200 MG CAPS One tablet by mouth daily DOCOSAHEXAENOIC ACID [id number] Angela Wagner MD Start: 04-20-2017 End: 07-02-2017 take 1 tablet by mouth once daily DHA COMPLETE 200 MG CAPS One tablet by mouth daily DOCOSAHEXAENOIC ACID [id number] Vickie Rudd MD fluconazole 150 mg oral tablet (5 sources) Azole Antifungal Start: 02-01-2024 End: 09-14-2024 Fluconazole 150 mg tablet Discontinued 150 mg PO Every 3 Days 2 0 February 01, 2024 12:00am September 14, 2024 5:26pm take 1 tab on day 1 and then repeat in 72hrs. Start: 10-04-2023 End: 01-30-2024 take 1 tablet by mouth once Fluconazole 150 mg tablet Discontinued 150 mg PO ONCE 1 0 October 04, 2023 1:00am January 30, 2024 9:35am hydrocortisone 0.025 mg/mg topical ointment (1 source) Corticosteroid Start: 11-11-2024 End: 06-26-2025 Hydrocortisone 2.5 % ointment Discontinued 1 NMA TOPICAL TWICE A DAY 28.35 1 November 11, 2024 1:00am June 26, 2025 4:12pm ibuprofen 800 mg oral tablet (2 sources) Nonsteroidal Anti-inflammatory Drug Start: 01-30-2024 End: 11-11-2024 take 1 tablet by mouth every eight hours as needed for pain Ibuprofen 800 mg tablet Discontinued 800 mg PO Q8H as needed for pain 30 0 January 30, 2024 12:00am November 11, 2024 2:35pm levoFLOXacin 750 mg oral tablet (8 sources) Quinolone Antimicrobial Start: 09-16-2018 End: 12-20-2018 take 1 tablet by mouth once daily Levofloxacin 750 MG tablet Discontinued 750 mg PO DAILY 6 0 September 16, 2018 1:00am December 20, 2018 3:18pm montelukast 10 mg oral tablet (3 sources) Leukotriene Receptor Antagonist Start: 10-02-2023 End: 11-11-2024 take 1 tablet by mouth once daily Montelukast (Singulair) 10 mg tablet Discontinued 10 mg PO DAILY October 02, 2023 1:00am November 11, 2024 2:36pm naproxen 250 mg oral tablet (8 sources) Nonsteroidal Anti-inflammatory Drug Start: 05-01-2017 End: 11-23-2017 take 250-500 mg by mouth every eight hours as needed for pain Naproxen 250 MG tablet Discontinued 250 - 500 mg PO EVERY 8 HOURS NEEDED as needed for MILD PAIN 30 0 May 01, 2017 12:00am November 23, 2017 10:51am nitrofurantoin, macrocrystals 25 mg / nitrofurantoin, monohydrate 75 mg oral capsule (2 sources) Start: 05-25-2017 End: 06-01-2017 take 1 tablet by mouth twice daily MACROBID 100 MG CAPS One tablet by mouth twice daily NITROFURANTOIN MONOHYD MACRO [id number] Kalani Robertson [employer] nitrofurantoin, macrocrystals 25 mg / nitrofurantoin, monohydrate 75 mg oral capsule (20 sources) Nitrofuran Antibacterial Start: 07-12-2021 End: 07-14-2021 take 1 capsule by mouth every twelve hours at mealtime Nitrofurantoin Monohyd/M-Cryst 100 mg capsule Discontinued 1 NMA PO Q12H 14 7 0 July 12, 2021 12:00am July 18, 2021 12:00am July 14, 2021 2:13pm administer with a meal/food; swallow whole; do not open, crush, dissolve , or chew Start: 11-06-2020 End: 11-08-2020 take 1 capsule by mouth twice daily at mealtime Nitrofurantoin Monohyd/M-Cryst (Macrobid) 100 mg capsule Discontinued 100 mg PO TWICE A DAY 14 7 0 November 06, 2020 1:00am November 12, 2020 1:00am November 08, 2020 9:56am must administer with a meal/food Start: 03-20-2020 End: 03-27-2020 take 1 capsule by mouth twice daily at mealtime Nitrofurantoin Monohyd/M-Cryst (Macrobid) 100 mg capsule Discontinued 100 mg PO TWICE A DAY 14 7 0 March 20, 2020 12:00am March 26, 2020 12:00am March 27, 2020 12:02am must administer with a meal/food ondansetron 4 mg disintegrating oral tablet (19 sources) Serotonin-3 Receptor Antagonist Start: 04-30-2017 End: 11-23-2017 take 1 tablet by mouth every eight hours as needed for nausea Ondansetron 4 MG tablet Discontinued 4 mg PO EVERY 8 HOURS NEEDED as needed for Nausea April 30, 2017 12:00am November 23, 2017 10:51am Start: 04-20-2017 End: 07-02-2017 take 1 tablet by mouth twice daily ZOFRAN 4 MG TABS One tablet by mouth twice daily ONDANSETRON HCL [id number] Vickie Rudd MD Start: 02-18-2017 take 1 tablet by rochelle th every eight hours as needed ondansetron (ZOFRAN) 4 mg tablet Take 1 tablet by mouth every 8 hours as needed. 30 tablet 3 02/18/2017 Active Comment on above: Take 1 tablet by rochelle th every 8 hours as needed. Vit No.106-Gmkw-Aekeq (7 sources) Start: 02-24-2016 End: 11-23-2017 Vit No.170-Ndjg-Wiqil Discontinued 1 EACH PO DAILY February 23, 2016 11:00pm November 23, 2017 9:51am Start: 02-24-2016 End: 11-23-2017 Vit No.594-Gzpq-Len ic Discontinued 1 EACH PO DAILY February 24, 2016 12:00am November 23, 2017 10:51am Vit No.867-Zzel-Ylowq 1 EACH tablet (1 source) Start: 02-24-2016 End: 11-23-2017 take 1 tablet by mouth once daily Vit No.400-Gljn-Eaksu 1 EACH tablet Discontinued 1 NMA PO DAILY February 24, 2016 12:00am November 23, 2017 10:51am VIT-FE FUMARATE-FA (4 sources) Start: 04-20-2017 6.75- 0.2 MG TABS .11 VIT-FE FUMARATE-FA [id number] Angela Wagner MD Start: 04-20-2017 End: 07-02-2017 6.75-0.2 MG TABS .1 1 VIT-FE FUMARATE-FA [id number] Vickie Rudd MD promethazine hydrochloride 25 mg oral tablet (8 sources) Phenothiazine Start: 06-26-2021 End: 08-23-2021 take 1 tablet by mouth every six hours as needed for nausea and vomiting Promethazine 25 mg tablet Discontinued 25 mg PO EVERY 6 HOURS as needed for nausea and vomiting 10 June 26, 2021 12:00am August 23, 2021 11:52am sulfamethoxazole 800 mg / trimethoprim 160 mg oral tablet (16 sources) Dihydrofolate Reductase Inhibitor Antibacterial, Sulfonamide Antimicrobial Start: 07-14-2021 End: 08-23-2021 Sulfamethoxazole- Trimethoprim (Bactrim Ds) 800-160 mg tablet Discontinued 1 {tbl} PO TWICE A DAY 20 0 July 14, 2021 12:00am August 23, 2021 11:52am Start: 11-08-2020 End: 11-13-2020 Sulfamethoxazole-Trimethopri m 800-160 mg tablet Discontinued 1 {tbl} PO TWICE A DAY 10 5 0 November 08, 2020 1:00am November 12, 2020 1:00am November 13, 2020 1:03am Start: 11-08-2020 End: 11-13-2020 take 1 tablet by mouth twice daily Sulfamethoxazole-Trimethoprim Discontinu ed 1 TABLET PO TWICE A DAY 10 5 November 08, 2020 1:00am November 13, 2020 1:03am terconazole 4 mg/ml vaginal cream (2 sources) Azole Antifungal Start: 02-01-2024 End: 02-08-2024 Terconazole 0.4 % cream Discontinued 1 NMA VAGINAL AT BEDTIME 45 7 0 February 01, 2024 12:00am February 07, 2024 12:00am February 08, 2024 12:06am use pea sized amount on vulvar tissues Start: 02-01-2024 Terconazole Ac tive 1 APPFUL VAGINAL AT BEDTIME 45 7 February 01, 2024 12:00am use pea sized amount on vulvar tissues 24 hr venlafaxine 75 mg extended release oral capsule (20 sources) Serotonin and Norepinephrine Reuptake Inhibitor Start: 12-21-2017 End: 12-20-2018 take 1 capsule by mouth once daily Venlafaxine 75 mg capsule,extended release 24hr Discontinued 75 mg PO daily 90 3 March 17, 2018 12:22pm December 20, 2018 3:18pm Start: 11-23-2017 End: 12-21-2017 take 1 tablet by mouth once daily Venlafaxine 37.5 mg tablet Discontinued 37.5 mg PO daily 30 1 November 23, 2017 1:00am December 21, 2017 11:18am Problems Active Problems Problem Classification Problem Date Documented Date Episodic/Chronic Allergic reactions (10 sources) Irritant contact dermatitis due to plant; Translations: [Irritant contact dermatitis due to plants, except food] Onset: 06-26-2025 05-03-2018 Episodic Comment on above: culture sent, unclea r cause, hydrocortisone recommended Anxiety disorders (9 sources) Mixed anxiety and depressive disorder; Translations: [Anxiety disorder, unspecified] 12-21-2017 Chronic Comment on above: gini Baca Codes: Adverse effects of medical drugs (8 sources) Adverse reaction to drug; Translations: [Adverse effect of unspecified drugs, medicaments and biological substances, initial encounter] 07-04-2021 Episodic Fluid and electrolyte disorders (8 sources) Dehydration; Translations: [Dehydration] 07-04-2021 Episodic Inflammatory diseases of female pelvic organs (1 source) Acute vaginitis; Translations: [Vaginitis and vulvovaginitis, unspecified] 02-01-2024 Episodic Nutritional deficiencies (1 source) Vitamin D deficiency, unspecified; Translations: [Vitamin D deficiency, unspecified] Onset: 10-04-2024 Chronic Other complications of (14 sources) Nausea and vomiting; Translations: [Vomiting of , unspecified] Onset: 09-18-2016 09-18-2016 Episodic Other lower respiratory disease (1 source) Single lobe lung infiltrate; Translations: [Other nonspecific abnormal finding of lung field] 09-14-2024 Episodic Other non-traumatic joint disorders (2 sources) Effusion of joint of multiple sites; Translations: [Effusion, unspecified joint] 01-30-2024 Episodic Other non-traumatic joint disorders (1 source) Effusion, unspecified joint; Translations: [Effusion of joint, multiple sites] 01-30-2024 Episodic Other nutritional; endocrine; and metabolic disorders (1 source) Body mass index 30+ - obesity 06-24-2021 Chronic Other skin disorders (2 sources) Rash and other nonspecific skin eruption; Translations: [Rash and other nonspecific skin eruption] 06-20-2023 Episodic Other upper respiratory disease (1 source) Other allergic rhinitis; Translations: [Other allergic rhinitis] Onset: 04-26-2024 Chronic Other upper respiratory infections (12 sources) Pharyngitis; Translations: [Acute maxillary sinusitis] Onset: 07-20-2017 07-20-2017 Episodic Retinal detachments; defects; vascular occlusion; and retinopathy (12 sources) Retinal dystrophy; 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] 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 Thyroid disorders (7 sources) Non-toxic uninodular goiter; Translations: [Goiter] Onset: 06-12-2017 06-25-2017 Chronic Unclassified (2 sources) care ; Translations: [Encounter for care and examination of mother immediately after delivery] Onset: 06-12-2017 06-12-2017 Unclassified (2 sources) Screening - health check; Translations: [Encounter for general adult medical examination without abnormal findings] Onset: 07-02-2017 07-02-2017 Unclassified (7 sources) Body mass index 30+ - obesity; Translations: [Body mass index (BMI) greater than 30] 06-24-2021 Unclassified (1 source) Cough, unspecified; Translations: [Cough, unspecified] Onset: 10-20-2024 Urinary tract infections (10 sources) Urinary tract infectious disease; Translations: [Urinary tract infection, site not specified] Onset: 05-25-2017 05-25-2017 Episodic Viral infection (8 sources) Disease caused by 2019-nCoV; Translations: [COVID-19] 06-26-2021 Episodic Past or Other Problems Problem Classification Problem Date Documented Date Episodic/Chronic Administrative/social admission (2 sources) Multigravida; Translations: [Encounter for supervision of other normal , unspecified trimester] Onset: 04-13-2017 04-13-2017 Episodic Blindness and vision defects (6 sources) Visual field defect; Translations: [Unspecified visual field defects] Onset: 05-30-2022 05-30-2022 Episodic Contraceptive and procreative management (4 sources) IUD check; Translations: [IUD contraception] Onset: 06-12-2017 08-02-2017 Episodic Normal and/or delivery (13 sources) Gestation period, 39 weeks; Translations: [Normal ] Onset: 07-13-2015 Resolved: 04-27-2017 04-28-2017 Episodic Other complications of (7 sources) High risk ; Translations: [Supervision of other high risk pregnancies, third trimester] Onset: 09-18-2016 02-18-2017 Episodic Other complications of (1 source) Vomiting of , unspecified; Translations: [Unspecified vomiting of , unspecified as to episode of care or not applicable] Onset: 09-18-2016 09-18-2016 Episodic Other complications of (1 source) Hyperemesis gravidarum; Translations: [Mild hyperemesis gravidarum] Onset: 09-10-2015 Resolved: 04-09-2016 04-09-2016 Episodic Other female genital disorders (1 source) Other specified noninflammatory disorders of vulva and perineum; Translations: [Other specified noninflammatory disorders of vulva and perineum] Onset: 11-24-2024 Episodic Unclassified (4 sources) Gestation period, 40 weeks; Translations: [40 weeks gestation of ] Onset: 04-27-2017 Resolved: 04-28-2017 04-28-2017 Episodic Unclassified (4 sources) 38 weeks gestation of ; Translations: [38 weeks gestation of ] Onset: 04-13-2017 Resolved: 04-17-2017 04-17-2017 Results Test Name Value Interpretation Reference Range Facility Urgent Care Visit Reporton 0 06-26-2025 Urgent Care Visit Report [facility] [address], [address] [place] [address] OFFICE VISIT Date of Service: 06/26/25 MR#: [id number] Acct: [id number] Name: LORENE BARROS Rep #: [id number] : 1985 Provider: LOIDA Lopez Age/Sex: 39/F Location: [facility] Status: Signed Intake Vital Signs 11/11/24 13:30 06/26/25 16:13 Height 5 ft 4 in 5 ft 4 in Weight: 185 lb 8 oz 181 lb BMI 31.8 31.0 BP 130/85 H 118/82 H Blood Pressure Location Lt brachial Position Sitting Pulse 89 Pulse Source Monitor Temp 98.3 F Temp Source Oral Pulse Oximetry (%) 99 Oxygen Delivery Method room air Intake Visit Reasons: HEAD CONGESTION Chief Complaint: Head Congestion Accompanied by: Self Allergies nitrofurantoin (From Macrobid) Adverse Reaction (Intermediate, Verified 06/26/25 16:08) dizzy Medications ???Medication ???Instructions ???Recorded ???Confirmed ???Type albuterol sulfate 90 mcg/actuation 1 - 2 inh inhalation Q4H PRN PRN 06/25/21 06/26/25 History aerosol inhaler sob L.acid,christopher-B.animal ,bifid,infant 1 cap PO DAILY 11/11/24 06/26/25 History 50 billion cell capsule,delayed rel (Fortify Cosmos Women Probiotic) levonorgestrel 20.4 mcg/24 hr (up 1 device intrauterine ONCE 06/26/25 History to 8 yrs) 52 mg intrauterine device (Liletta) loratadine 10 mg tablet (Claritin) 10 mg PO QDAY 11/11/24 06/26/25 History sertraline 50 mg tablet 50 mg PO DAILY #30 tabs 11/11/24 0 06/26/25 Rx tiotropium bromide 1.25 2 puff inhalation Q24H 11/11/24 History mcg/actuation mist for inhalation (Spiriva Respimat) nystatin-triamcinolo ne 100,000 1 applic topical TID #15 grams 06/26/25 Rx unit/gram-0.1 % topical ointment prednisone 10 mg tablet 10 mg PO QDAY #30 tabs 06/26/25 Rx Nurse's Note: Head congestion, sinus pressure, pt stating feels like being choked, feeling constricted, feels the pressure burning in ears and neck. X 1 day. [facility] Medical History Right lower lobe pulmonary infiltrate Pelvic pain Pelvic pain Thyromegaly Back problem Asthma Encounter for IUD insertion Surgical History History of wisdom tooth extraction, class IV edentulism Family History Grandfather Diabetes Hypertension Grandfather Cancer Throat Son Asthma Social History adopted: No household members: family housing: house number of children: 2 current occupational status: employed current occupation: [employer] current occupational exposures/hazards: Yes pets and animals: Yes history of recent travel: No Smoking Status: Never smoker alcohol intake: current alcohol intake frequency: holidays/special occasions only substance use type: does not use seatbelt use: always do you feel safe at home: Yes additional social history: - Nav HPI HPI Chief Complaint: Head Congestion Details: LORENE BARROS, is a 39 F who presents to the office today for initial evaluation 24 hour ago developing head congestion, sinus pressure, and constricted throat, and pressure burning behind ears/ neck/ mid back. 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 Pateint notes no pruritic rash nor chest pressure w/ sob/ padilla. No other associated symptoms and no other alleviating/aggravat ing factors. ROS Const Constitutional: No other (As above) Exam Const General: cooperative, healthy appearing and no acute distress Orientation: alert, awake HENMT Head: normal to inspection Ears: hearing grossly normal bilaterally, external ears normal, TM's normal bilaterally and EAC's normal Nose: external nose normal, nares normal, septum normal and no nasal discharge Face and sinus: normal facial exam, sinuses nontender and face symmetric Mouth: oral mucosae normal, lip normal, tongue normal and oropharynx normal Throat: posterior oropharynx normal, tonsils normal, uvula midline and no postnasal drainage Eyes General: appearance normal, both eyes and all related structures Neck Neck: normal visual inspection, full ROM, no lymphadenopathy, no meningeal signs and supple Neck mass: No Thyroid: thyroid normal Lymphatic: no lymphadenopathy noted Chest Chest palpation inspection: normal inspection of the chest Resp Effort Inspection: normal respiratory effort and able to speak in complete sentences Auscultation: Bilateral: Clear to Auscultation Cardio Palpation: normal PMI Rate: regular rate Rhythm: (more content not included)... Normal [facility] Genital Culture Comprehensiv jerri 11-14-2024 VAC Reason for Exam: vulvar lesion Genital Culture Comprehensive Genital Culture Comprehensive No Gardnerella, Neisseria or beta-hemolytic Streptococcus isolated. Meth. resistant Staph. aureus Amount Growth Rare mecA Testing not performed CALBP Amount Growth Very Rare Presumptive C albicans cefOXitin Susc Islt Doxycycline Islt LOUIS <=0.5 S Clindamycin Islt LOUIS 0.25 Clindamycin.induced Susc Islt NEG Erythromycin Islt LOUIS >=8 R Gentamicin Islt LOUIS <=0.5 S Linezolid Islt LOUIS 2 S Moxifloxacin Islt LOUIS 2 S Oxacillin Susc Islt >=4 R Tetracycline Islt LOUIS <=1 S TMP SMX Islt LOUIS <=10 S Vancomycin Islt LOUIS 1 S Normal [facility] Comment on above: Performed By: #### M 100.1999, M100.3200 #### [facility] [address] [place], [address] HSV 1 AND 2 IgGon 11-13-2024 HSV 1 IgG Normal [facility] Comment on above: Result Comment: RESU LT: REACTIVE Please note reference interval change HSV-1 IgG testing performed using the [employer] HSV-1 IgG assay. Performed By: #### L 3400.1610 #### [facility] [address] [place], [place], [id number] HSV 2 IgG Normal [facility] Comment on above: Result Comment: RESU LT: NON REACTIVE Please note reference interval change Current guidelines and recommendations do not recommend routine screening for HSV-2 in asymptomatic individuals, including those that are . The detection of HSV-2 IgG antibodies in a single sample indicates previous exposure to HSV-2 but does not give information as to the site of HSV infection or the timing of exposure. The predictive value of positive and negative results depends on the population's prevalence and the pretest likelihood of HSV-2. HSV-2 IgG testing performed using the [employer] HSV-2 IgG assay. Performed at: [address] [id number] Room Service Runner: Michael Berger PhD, Phone: [phone] Performed By: #### L 3400.1610 #### [facility] [address] [place], [place], [id number] Gram Stainon 11-11-2024 GS Reason for Exam: vulvar lesion Gram Stain 4+ Gram positive rods 1+ Epithelial cells No Gram negative diplococci Score = 0 Interpretation: 0-3 Normal, 4-6 Intermediate, 7-10 Positive BV Normal [facility] Comment on above: Performed By: #### M 100.1999, M100.3200 #### [facility] [address] [place], [address] [facility] Office Visit Reporton 11-11-2024 [facility] Office Visit Report [facility] [address], [address] [place] [address] OFFICE VISIT Date of Service: 11/11/24 MR#: [id number] Acct: [id number] Name: LORENE BARROS Rep #: [id number] : 1985 Provider: Dr. 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 Is patient in pain?: No Feel stressed/tense/nervo us/anxious/difficult y sleeping: not at all Allergies nitrofurantoin (From Macrobid) Adverse Reaction (Intermediate, Verified 11/11/24 13:35) dizzy Medications ???Medication ???Instructions ???Recorded ???Confirmed ???Type albuterol sulfate 90 mcg/actuation 1 - 2 inh inhalation Q4H PRN PRN 06/25/21 11/11/24 History aerosol inhaler sob L.acid,christopher-B.animal ,bifid, 1 cap PO DAILY 11/11/24 11/11/24 History 50 billion cell capsule,delayed rel (Fortify [employer]mos Women Probiotic) cholecalciferol (vitamin D3) 25 25 mcg PO QDAY 11/11/24 11/11/24 H istory mcg (1,000 unit) capsule hydrocortisone 2.5 % topical 1 applic topical BID #28.35 grams 11/11/24 11/11/24 Rx ointment levonorgestrel 20.4 mcg/24 hr (up 1 device intrauterine ONCE 11/11/24 History to 8 yrs) 52 mg intrauterine device (Liletta) loratadine 10 mg tablet (Claritin) 10 mg PO QDAY 11/11/24 11/11/24 History sertraline 50 mg tablet 50 mg PO DAILY #30 tabs 11/11/24 0 11/11/24 Rx tiotropium bromide 1.25 2 puff inhalation Q24H 11/11/24 History mcg/actuation mist for inhalation (Spiriva Respimat) nystatin-triamcinolo ne 100,000 1 applic topical TID #15 grams Rx unit/gram-0.1 % topical ointment Is last menstrual period known: No Post menopausal: No Patient : No : No PFSH Medical History Right lower lobe pulmonary infiltrate Pelvic pain Pelvic pain Thyromegaly Back problem Asthma Encounter for IUD insertion Surgical History History of wisdom tooth extraction, class IV edentulism Family History Grandfather Diabetes Hypertension Grandfather Cancer Throat Son Asthma Social History adopted: No household members: family housing: house number of children: 2 current occupational status: employed current occupation: [employer] current occupational exposures/hazards: Yes pets and animals: Yes history of recent travel: No Smoking Status: Never smoker alcohol intake: current alcohol intake frequency: holidays/special occasions only substance use type: does not use seatbelt use: always do you feel safe at home: Yes additional social history: - Nav History 2 Elective abortions Hx Para 2 Spontaneous abortions Hx # Term Pregnancies Ectopic pregnancies Hx # Pregnancies Multiple births # of living children 2 Past Pregnancies Del. Date Name GA/Weeks Outcome Route Bth Weight Gen Labor Lgth Anesthesia Del Locatn Provider FOB Unknown 02/24/2016- Jose Carlos 40 live - full term 7lbs 12oz Male 13 epid ural WC [place] Unknown 04/30/2017- Brenson live - full term 8lbs 1oz Male epidu ral [facility] [place] HPI Encounter for routine gynecological examination Details: LORENE BARROS is a 38 year old who presents for annual exam. co intermittent irritation vulva. she doesn't use any products soaps lotions or particular detergents, uses pink salve and desitin as n eeded. Last PAP: 09/12/22 - normal History of abnormal PAP: no severe Last mammogram: not due History of abnormal mammogram: [] Colon cancer screening: not due Other preventative health care screenings: Dr. Emanuel PCP Female Reproductive History Cycle Length: >35 Bleeding Duration: 2 Questions: metorrhagia: No, sexually active: Yes, dyspareunia: No and PCB: No Menopausal Symptoms: No hot flashes, No night sweats, No weight change, No mood changes, No difficulty concentrating, No sleep problems and No change in libido ROS Const Constitutional: Reports as per HPI; Denies fatigue, increased appetite, poor appetite, night sweats, weight gain or weight loss Cardio Card: Denies chest pain Resp Resp: Denies cough or dyspnea GI GI: Reports as per HPI; Denies abdominal pain, bloating, constipation, nausea or vomiting : Reports as per HPI, vaginal discharge, vaginal dryness, vaginal pruritus and other; Denies difficulty voiding, dysuria, hematuria, hot flashes, nipple disch (more content not included)... Normal [facility] Thyroidon 11-11-2024 Thyroid [facility] Imaging Services [address] [place] [id number] Thyroid MR#: [id number] Acct: [id number] Name: LORENE BARROS Rep #: [id number] : 1985 F 38 From: Daniel Hutton MD PCP: Dr. Radha Emanuel MD Status: [facility] Study: Thyroid Date of Exam: 11/11/24 Exam# [id number] Ordering Dr: Radha Emanuel MD ADDENDUM by Dr. Daniel Hutton MD on 11/27/24 at 2223 There is no significant change in size and morphology of the thyroid nodules when compared to study dated 10/02/2023 Reading [facility] 11/27/243 Date cc: Dr. Radha Emanuel MD * Signed PROCEDURE: THYROID REASON FOR EXAM: Nodule TECHNIQUE: Thyroid ultrasound COMPARISON: 10/02/2023 FINDINGS: Thyroid gland is heterogeneous Right thyroid lobe measures 5.2 x 1.7 x 1.5 cm. Left thyroid lobe measures 4.2 x 1.3 x 1.3 cm. Isthmus thickness is. Thyroid Size: Normal Background Echotexture: Normal Thyroid Nodules: Right lesion 1: Solid isoechoic nodule with smooth margins and vascularity measuring 0.8 x 0.7 x 0.6 cm. TI-RADS 3 Right lesion 2: Mixed hypoechoic nodule with smooth margins measuring 0.5 x 0.5 x 0.2 cm TI-RADS 3 Left lesion 1: Cystic hypoechoic nodule smooth margins measuring 0.2 x 0.3 x 0.2 cm. TI-RADS 1 US/Thyroid IMPRESSION: TI-RADS 3 right thyroid nodules. No follow-up recommended given size. Reading Location: [facility] CC: Dr. Radha Emanuel MD Bulk Pigment Reducer: Signed Normal [facility] Chest PA and Lateralon 09-14 Chest PA and Lateral [facility] Imaging Services [address] [place] [id number] Chest PA and Lateral MR#: [id number] Acct: [id number] Name: LORENE BARROS Rep #: [id number] : 1985 F 38 From: Mitchell Juarez MD PCP: Dr. Radha Emanuel MD Status: [facility] Study: Chest PA and Lateral Date of Exam: 09/14/24 Exam# [id number] Ordering Dr: Tank Farmer [place] [id number] STUDY: X-RAY CHEST REASON FOR EXAM: Female, 38 years old. cough TECHNIQUE: PA and lateral COMPARISON: July 30, 2022 FINDINGS: The lungs are clear and expanded. There is no demonstrated pleural abnormality. Normal size heart. Normal mediastinum and brigida. Normal visualized pulmonary arteries. Normal visualized aortic arch and descending thoracic aorta. Normal visualized thoracic spine. Normal visualized ribs, clavicles, and shoulders. There is no demonstrated abnormality of the visualized soft tissue structures of the upper abdomen. RAD/Chest PA and Lateral IMPRESSION: Normal x-ray examination of the chest. Electronically Signed: Mitchell Juarez MD at 16:59 EST Reading Location ID and State: [facility] / [place] Tel , Service support , CC: Dr. Radha Emanuel MD; LOIDA Lopez Bulk Pigment Reducer: Signed Normal [facility] Urgent Care Visit Reporton 1 11-15-2023 Urgent Care Visit Report [facility] [address], [address] [place] [address] OFFICE VISIT Date of Service: 09/14/24 MR#: [id number] Acct: [id number] Name: LORENE BARROS Rep #: [id number] : 1985 Provider: LOIDA Lopez Age/Sex: 38/F Location: [facility] Status: Signed Intake Vital Signs 02/01/24 15:28 09/14/24 16:25 Height 5 ft 4 in BP 142/82 H Blood Pressure Location Lt brachial Position Sitting Respiration 16 Pulse 92 Pulse Source NIBP Temp 98.2 F Temp Source Oral Pulse Oximetry (%) 99 Oxygen Delivery Method room air Intake Visit Reasons: CONCERN FOR Pneumonia Chief Complaint: cough, back pain, CP w/cough, chest tightness 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 Is patient in pain?: Yes Allergies nitrofurantoin (From Macrobid) Adverse Reaction (Intermediate, Verified 09/14/24 16:26) dizzy Medications ???Medication ???Instructions ???Recorded ???Confirmed ???Type albuterol sulfate 90 mcg/actuation 1 - 2 inh inhalation Q4H PRN PRN 06/25/21 02/01/24 History aerosol inhaler sob montelukast 10 mg tablet 10 mg PO DAILY 10/02/23 02/01/24 History (Singulair) sertraline 25 mg tablet (Zoloft) 50 mg PO DAILY 10/02/23 02/01/24 History ibuprofen 800 mg tablet 800 mg PO Q8H PRN pain #30 tabs 01/30/24 02/01/24 Rx azithromycin 250 mg tablet See Rx Instructions PO .COMPLEX #6 09/14/24 09/14/24 Rx tabs Is last menstrual period known: No Post menopausal: No Patient : No Have you fallen in the past year?: No Nurse's Note: cough, back pain, CP w/cough, chest tightness x 1 week worsening. 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 [facility] Medical History (Updated 09/14/24 @ 16:52 by Tank MARISCAL, PA) Right lower lobe pulmonary infiltrate Pelvic pain Pelvic pain Thyromegaly Back problem Asthma Encounter for IUD insertion Surgical History History of wisdom tooth extraction, class IV edentulism Family History Grandfather Diabetes Hypertension Grandfather Cancer Throat Son Asthma Social History adopted: No household members: family housing: house number of children: 2 current occupational status: employed current occupation: [employer] current occupational exposures/hazards: Yes pets and animals: Yes history of recent travel: No Smoking Status: Never smoker alcohol intake: current alcohol intake frequency: holidays/special occasions only substance use type: does not use seatbelt use: always do you feel safe at home: Yes additional social history: - Nav HPI HPI Chief Complaint: cough, back pain, CP w/cough, chest tightness Details: LORENE BARROS, is a 38 F who presents to the office today for initial evaluation of the [facility] for approximately 1 week history of cough, back pain, as well as left anterior chest wall with each cough. She also describes chest tightness (though no complaints of chest pressure with shortness of breath or dyspnea on exertion) x 1 week. 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 No ynuf-bzl-tvwqrtj products taken to assist. Non-smoker. No other associated symptoms and no other alleviating/aggravat ing factors. ROS Const Constitutional: No other (As above) Exam Const General: cooperative, healthy appearing and no acute distress Orientation: alert and awake [facility] Head: normal to inspection Ears: hearing grossly normal bilaterally, external ears normal, TM's normal bilaterally and EAC's normal Nose: external nose normal, nares normal, septum normal and no nasal discharge Face and sinus: normal facial exam, sinuses nontender and face symmetric Mouth: oral mucosae normal, lip normal, tongue normal, oropharynx normal and moist mucous membranes Throat: posterior oropharynx normal, tonsils normal and no postnasal drainage Eyes General: appearance normal, both eyes and all related structures Neck Neck: normal visual inspection, full ROM, no lymphadenopathy, no meningeal signs and supple Chest Chest palpation inspection: normal inspection of the chest Resp Effort Inspection: normal respiratory effort and able to speak in complete sentences Auscultation: Left: Clear to Auscultation and Right: Rhonchi (RLL rhonchi) Cardio Palpation: normal PMI Rate: regular rate Rhythm: regular rhythm Heart Sounds: S1 normal, S2 normal, no gallops, no murmurs and no rubs Pulses: radial pulses present GI Inspection: normal to inspection Palpation: soft and no hepa (more content not included)... Normal [facility] Vitamin D,25 Hydroxyon 09-01 Vitamin D 25-OH 28.4 ng/mL Normal [facility] Comment on above: Order Comment: Order Date: 08/31/24Order Info: 10162-6 - VITD25 Result Comment: Mellissa min D 25(OH) Status Range Deficiency <20 ng/mL (50nmol/L) Insufficiency 20 - 30 ng/mL (50 - 75 nmol/L) Sufficiency 30 - 100 ng/mL (75 - 250 nmol/L) Toxicity >100 ng/mL (>250 nmol/L) Performed By: #### L 506.1000, L100.0100, L500.4050 ####[facility] [id number] [place], [address] CBC W/Diff, Automatedon 12- Absolute Lymph 2.12 X10 3/uL Normal 0.83-4.51 [facility] Comment on above: Order Comment: Order Date: 08/31/24 Order Info: 0184-1 - CBCD Performed By: #### L 506.1000, L100.0100, L500.4050 #### [facility] [address] [place], [address] Absolute Neut 5.9 X10 3/uL Normal 2.0-7.7 [facility] Comment on above: Order Comment: Order Date: 08/31/24 Order Info: 0184-1 - CBCD Performed By: #### L 506.1000, L100.0100, L500.4050 #### [facility] [address] [place], [address] Basophils/100 WBC (Bld) 0.8 % Normal 0-1 [facility] Comment on above: Order Comment: Order Date: 08/31/24 Order Info: 0184-1 - CBCD Performed By: #### L 506.1000, L100.0100, L500.4050 #### [facility] [address] [place], [address] Eosinophils/100 WBC (Bld) 3.1 % Normal 0-5 [facility] Comment on above: Order Comment: Order Date: 08/31/24 Order Info: 0184-1 - CBCD Performed By: #### L 506.1000, L100.0100, L500.4050 #### [facility] [address] [place], [address] Erythrocyte distribution width (RBC) [Ratio] 12.7 % Normal 11.6-14.6 [facility] Comment on above: Order Comment: Order Date: 08/31/24 Order Info: 0184-1 - CBCD Performed By: #### L 506.1000, L100.0100, L500.4050 #### [facility] [address] [place], [address] Hematocrit (Bld) [Volume fraction] 42.4 % Normal 37-47 [facility] Comment on above: Order Comment: Order Date: 08/31/24 Order Info: 0184-1 - CBCD Performed By: #### L 506.1000, L100.0100, L500.4050 #### [facility] [address] [place], [address] Hemoglobin (Bld) [Mass/Vol] 13.8 g/dL Normal 12.0-15.0 [facility] Comment on above: Order Comment: Order Date: 08/31/24 Order Info: 018- - CBCD Performed By: #### L 506.1000, L100.0100, L500.4050 #### [facility] [address] [place], [address] IG% 0.300 Normal 0.0-0.9 [facility] Comment on above: Order Comment: Order Date: 08/31/24 Order Info: 018- - CBCD Result Comment: IG% - Immature Granulocytes (promyelocytes, myelocytes and metamyelocytes) > 1% indicates that a LEFT SHIFT is Present. Performed By: #### L 506.1000, L100.0100, L500.4050 #### [facility] [address] [place], [address] Lymphocytes/100 WBC (Bld) 23.2 % Normal 19-41 [facility] Comment on above: Order Comment: Order Date: 08/31/24 Order Info: 018- - CBCD Performed By: #### L 506.1000, L100.0100, L500.4050 #### [facility] [address] [place], [address] MCH (RBC) [Entitic mass] 28.9 pg Normal 27.0-32.0 [facility] Comment on above: Order Comment: Order Date: 08/31/24 Order Info: 0184- - CBCD Performed By: #### L 506.1000, L100.0100, L500.4050 #### [facility] [address] [place], [address] MCHC (RBC) [Mass/Vol] 32.5 g/dL Normal 32-36 [facility] Comment on above: Order Comment: Order Date: 08/31/24 Order Info: 0184-1 - CBCD Performed By: #### L 506.1000, L100.0100, L500.4050 #### [facility] [address] [place], [address] MCV (RBC) [Entitic vol] 88.7 fL Normal 81-99 [facility] Comment on above: Order Comment: Order Date: 08/31/24 Order Info: 0184-1 - CBCD Performed By: #### L 506.1000, L100.0100, L500.4050 #### [facility] [address] [place], [address] Monocytes/100 WBC (Bld) 7.7 % Normal 0-10 [facility] Comment on above: Order Comment: Order Date: 08/31/24 Order Info: 0184-1 - CBCD Performed By: #### L 506.1000, L100.0100, L500.4050 #### [facility] [address] [place], [address] Neutrophils/100 WBC (Bld) 64.9 % Normal 47-70 [facility] Comment on above: Order Comment: Order Date: 08/31/24 Order Info: 0184-1 - CBCD Performed By: #### L 506.1000, L100.0100, L500.4050 #### [facility] [address] [place], [address] Nucleated RBC (Bld) [#/Vol] 0 10*3/uL Normal 0-5 [facility] Comment on above: Order Comment: Order Date: 08/31/24 Order Info: 0184-1 - CBCD Performed By: #### L 506.1000, L100.0100, L500.4050 #### [facility] [address] [place], [address] Platelet mean volume (Bld) [Entitic vol] 11.5 fL Normal 6.2-12.0 [facility] Comment on above: Order Comment: Order Date: 08/31/24 Order Info: 0184-1 - CBCD Performed By: #### L 506.1000, L100.0100, L500.4050 #### [facility] [address] [place], [address] Platelets (Bld) [#/Vol] 270 10*3/uL Normal 150-450 [facility] Comment on above: Order Comment: Order Date: 08/31/24 Order Info: 0184-1 - CBCD Performed By: #### L 506.1000, L100.0100, [id number] #### [facility] [address] [place], [address] RBC (Bld) [#/Vol] 4.78 10*6/uL Normal 4.2-5.4 [facility] Comment on above: Order Comment: Order Date: 08/31/24 Order Info: 0184-1 - CBCD Performed By: #### L 506.1000, L100.0100, [id number] #### [facility] [address] [place], [address] RDW SD 41.5 fl Normal 35.1-43.9 [facility] Comment on above: Order Comment: Order Date: 08/31/24 Order Info: 0184-1 - CBCD Performed By: #### L 506.1000, L100.0100, [id number] #### [facility] [address] [place], [address] WBC (Bld) [#/Vol] 9.1 10*3/uL Normal 4.4-11.0 [facility] Comment on above: Order Comment: Order Date: 08/31/24 Order Info: 0184-1 - CBCD Performed By: #### L 506.1000, L100.0100, L500.4050 #### [facility] [address] [place], [address] Comprehensive Metabolic Prof ilon 08-31-2024 Albumin [Mass/Vol] 3.9 g/dL Normal 3.2-5.0 [facility] Comment on above: Order Comment: Order Date: 08/31/24 Order Info: 0786-1 - CMP Performed By: #### L 506.1000, L100.0100, L500.4050 #### [facility] [address] [place], [address] Albumin/Globulin [Mass ratio] 1.1 {ratio} Normal 0.9-2.4 [facility] Comment on above: Order Comment: Order Date: 08/31/24 Order Info: 0786-1 - CMP Performed By: #### L 506.1000, L100.0100, [id number] #### [facility] [address] [place], [address] ALK P 50 U/L Normal 45-117 [facility] Comment on above: Order Comment: Order Date: 08/31/24 Order Info: 0786-1 - CMP Performed By: #### L 506.1000, L100.0100, [id number] #### [facility] [address] [place], [address] ALT [Catalytic activity/Vol] 30 U/L Normal 13-56 [facility] Comment on above: Order Comment: Order Date: 08/31/24 Order Info: 0786-1 - CMP Performed By: #### L 506.1000, L100.0100, [id number] #### [facility] [address] [place], [address] AST [Catalytic activity/Vol] 11 U/L Low 15-37 [facility] Comment on above: Order Comment: Order Date: 08/31/24 Order Info: 0786-1 - CMP Performed By: #### L 506.1000, L100.0100, L500.4050 #### [facility] [address] [place], [address] Bilirubin [Mass/Vol] 0.30 mg/dL Normal 0.20-1.00 [facility] Comment on above: Order Comment: Order Date: 08/31/24 Order Info: 0786-1 - CMP Result Comment: For patients on eltrombopag therapy, use of Dimension [place] TBIL is not recommended. Performed By: #### L 506.1000, L100.0100, L500.4050 #### [facility] [address] [place], [address] BUN/CRE 16.6 RATIO Normal 10-20 [facility] Comment on above: Order Comment: Order Date: 08/31/24 Order Info: 0786-1 - CMP Performed By: #### L 506.1000, L100.0100, L500.4050 #### [facility] [address] [place], [address] CA,Total 9.3 mg/dL Normal 8.5-10.1 [facility] Comment on above: Order Comment: Order Date: 08/31/24 Order Info: 0786-1 - CMP Performed By: #### L 506.1000, L100.0100, L500.4050 #### [facility] [address] [place], [address] Chloride [Moles/Vol] 105 mmol/L Normal 98-107 [facility] Comment on above: Order Comment: Order Date: 08/31/24 Order Info: 0786-1 - CMP Performed By: #### L 506.1000, L100.0100, L500.4050 #### [facility] [address] [place], [address] CO2 [Moles/Vol] 25.0 mmol/L Normal 21.0-32.0 [facility] Comment on above: Order Comment: Order Date: 08/31/24 Order Info: 0786-1 - CMP Performed By: #### L 506.1000, L100.0100, L500.4050 #### [facility] [address] [place], [address] Creatinine [Mass/Vol] 0.78 mg/dL Normal 0.55-1.02 [facility] Comment on above: Order Comment: Order Date: 08/31/24 Order Info: 0786-1 - CMP Result Comment: The validity of the calculated GFR GFRAA in patients over 70 years has not been determined. Clinical correlation is essential. Performed By: #### L 506.1000, L100.0100, L500.4050 #### [facility] [address] [place], [address] EST GFR - AA 107 mL/min Normal >60 [facility] Comment on above: Order Comment: Order Date: 08/31/24 Order Info: 0786-1 - CMP Result Comment: Afri can [place] GFR Calc Performed By: #### L 506.1000, L100.0100, L500.4050 #### [facility] [address] [place], [address] GAP 8 Normal 5-15 [facility] Comment on above: Order Comment: Order Date: 08/31/24 Order Info: 0786-1 - CMP Performed By: #### L 506.1000, L100.0100, L500.4050 #### [facility] [address] [place], [address] GFR/1.73 sq M.predicted among non-blacks MDRD (S/P/Bld) [Vol rate/Area] 88 mL/min/{1.73_m2} Normal >60 [facility] Comment on above: Order Comment: Order Date: 08/31/24 Order Info: 0786-1 - CMP Result Comment: Non- GFR Calc Performed By: #### L 506.1000, L100.0100, L500.4050 #### [facility] [address] [place], [address] Globulin (S) [Mass/Vol] 3.5 g/dL Normal 2.2-4.2 [facility] Comment on above: Order Comment: Order Date: 08/31/24 Order Info: 0786-1 - CMP Performed By: #### L 506.1000, L100.0100, L500.4050 #### [facility] [address] [place], [address] Glucose [Mass/Vol] 94 mg/dL Normal 74-106 [facility] Comment on above: Order Comment: Order Date: 08/31/24 Order Info: 0786-1 - CMP Performed By: #### L 506.1000, L100.0100, L500.4050 #### [facility] [address] [place], [address] Potassium [Moles/Vol] 3.8 mmol/L Normal 3.5-5.1 [facility] Comment on above: Order Comment: Order Date: 08/31/24 Order Info: 0786-1 - CMP Performed By: #### L 506.1000, L100.0100, L500.4050 #### [facility] [address] [place], [address] Sodium [Moles/Vol] 138 mmol/L Normal 136-145 [facility] Comment on above: Order Comment: Order Date: 08/31/24 Order Info: 0786-1 - CMP Performed By: #### L 506.1000, L100.0100, L500.4050 #### [facility] [address] [place], [address] T PROT 7.4 g/dL Normal 6.4-8.2 [facility] Comment on above: Order Comment: Order Date: 08/31/24 Order Info: 0786-1 - CMP Performed By: #### L 506.1000, L100.0100, L500.4050 #### [facility] [address] [place], [place], [address] Urea nitrogen [Mass/Vol] 13 mg/dL Normal 7-18 [facility] Comment on above: Order Comment: Order Date: 08/31/24 Order Info: 0786-1 - CMP Performed By: #### L 506.1000, L100.0100, L500.4050 #### [facility] [address] [place], [address] ALLIED HEALTHon 04-26-2024 [facility] HNO ID: [id number] Author: DANA RICHARD CT Service: Radiology Author Type: Technologist Type: Allied Health Filed: 04/26/2024 10:37 Note Text: Radiology Service Progress Note PATIENT NAME: Lorene Barros DATE OF SERVICE: April 26, 2024 TIME: 10:37 AM PATIENT IDENTITY VERIFICATION COMPLETED USING TWO (2) IDENTIFIERS: Name and Date of confirmed by patient verbally and Name and Date of confirmed by identification band. FALL SCREENING: Has the patient had 2 falls in the last year or 1 fall with injury or currently using an Ambulatory Assistive Device (Walker, Cane, Wheelchair, Crutches, etc.)? No PATIENT GENDER DATA: Female. status: : No status: NO. PATIENT RELEVANT IMPLANT DATA REVIEWED: Not Applicable PATIENT PRESENTS WITH AN IMPLANTABLE OR ATTACHED MACHINE HOOP MAKER: No RADIOLOGY DEPARTMENT: CT; Exam(s) Completed: Sinus PERIPHERAL IV DATA: Not applicable SIGNED BY: JUICE Gee April 26, 2024 10:37 AM [facility] CT Guidance for stereotactic localization of Unspecified body region-- WO contraston 04-26-2024 IMPRESSION: No significant paranasal sinus disease. Bulk Pigment Reducer: KATIE Transcribe Date/Time: Apr 26 2024 1:08P Dictated by : GAYATRI DOYLE MD This examination was interpreted and the report reviewed and electronically signed by: GAYATRI DOYLE MD on Apr 26 2024 1:10PM [facility] * * *Final Report* * * DATE OF EXAM: Apr 26 2024 10:39AM [facility] 2075 - CT SINUS STEREO WO IVCON / PROCEDURE REASON: J30.89 ALLERGIC RHINITIS, SINUSITIS * * * * Physician Interpretation * * * * EXAMINATION: CT SINUS STEREO WO IVCON CLINICAL HISTORY: Allergic rhinitis and sinusitis TECHNIQUE: Spiral high resolution axial unenhanced CT images were obtained through the paranasal sinuses with sagittal, coronal reconstructions. MQ: CTSI_1 CT Radiation dose: Integrated Dose-Length Product (DLP) for this visit = 70 mGy*cm. CT Dose Reduction Employed: Automated exposure control(AEC) and iterative recon COMPARISON: None. RESULT: Post-Surgical Findings: None Sinus Chambers: 1 cm right maxillary sinus retention cyst/polyp. Single opacified left posterior ethmoid air cell. Remaining paranasal sinuses are clear. No layering fluid. Nasal Cavities: Visualized nasal cavities are patent. Mild rightward septal deviation with septal spur. Developmental Anomalies: None Other: The visualized mastoid air cells and middle ear cavities are clear. The soft tissues of the face and orbits are within normal limits within the limitations of the study. Localizer images: Unremarkable. [facility] Provider, [facility] [place] - 04/26/2024 * * *Final Report* * * DATE OF EXAM: Apr 26 2024 10:39AM [facility] 2075 - CT SINUS STEREO WO IVCON / PROCEDURE REASON: J30 ALLERGIC RHINITIS, SINUSITIS * * * * Physician Interpretation * * * * EXAMINATION: CT SINUS STEREO WO IVCON CLINICAL HISTORY: Allergic rhinitis and sinusitis TECHNIQUE: Spiral high resolution axial unenhanced CT images were obtained through the paranasal sinuses with sagittal, coronal reconstructions. MQ: CTSI_1 CT Radiation dose: Integrated Dose-Length Product (DLP) for this visit = 70 mGy*cm. CT Dose Reduction Employed: Automated exposure control(AEC) and iterative recon COMPARISON: None. RESULT: Post-Surgical Findings: None Sinus Chambers: 1 cm right maxillary sinus retention cyst/polyp. Single opacified left posterior ethmoid air cell. Remaining paranasal sinuses are clear. No layering fluid. Nasal Cavities: Visualized nasal cavities are patent. Mild rightward septal deviation with septal spur. Developmental Anomalies: None Other: The visualized mastoid air cells and middle ear cavities are clear. The soft tissues of the face and orbits are within normal limits within the limitations of the study. Localizer images: Unremarkable. IMPRESSION IMPRESSION: No significant paranasal sinus disease. Bulk Pigment Reducer: KATIE Transcribe Date/Time: Apr 26 2024 1:08P Dictated by : GAYATRI DOYLE MD This examination was interpreted and the report reviewed and electronically signed by: GAYATRI DOYLE MD on Apr 26 2024 1:10PM EST [facility] Radiology Study observation (narrative) [facility] CT Guidance for stereotactic localization of Unspecified body region-- WO contrastOrdered By: [facility] Provider on 04-26-2024 [facility] CT SINUS STEREO WO IVCONon 0 04-26-2024 CT SINUS STEREO WO IVCON * * *Final Report* * * DATE OF EXAM: Apr 26 2024 10:39AM [facility] 2075 - CT SINUS STEREO WO IVCON / PROCEDURE REASON: J30.89 ALLERGIC RHINITIS, SINUSITIS * * * * Physician Interpretation * * * * EXAMINATION: CT SINUS STEREO WO IVCON CLINICAL HISTORY: Allergic rhinitis and sinusitis TECHNIQUE: Spiral high resolution axial unenhanced CT images were obtained through the paranasal sinuses with sagittal, coronal reconstructions. MQ: CTSI_1 CT Radiation dose: Integrated Dose-Length Product (DLP) for this visit = 70 mGy*cm. CT Dose Reduction Employed: Automated exposure control(AEC) and iterative recon COMPARISON: None. RESULT: Post-Surgical Findings: None Sinus Chambers: 1 cm right maxillary sinus retention cyst/polyp. Single opacified left posterior ethmoid air cell. Remaining paranasal sinuses are clear. No layering fluid. Nasal Cavities: Visualized nasal cavities are patent. Mild rightward septal deviation with septal spur. Developmental Anomalies: None Other: The visualized mastoid air cells and middle ear cavities are clear. The soft tissues of the face and orbits are within normal limits within the limitations of the study. Localizer images: Unremarkable. IMPRESSION: No significant paranasal sinus disease. Bulk Pigment Reducer: KATIE Transcribe Date/Time: Apr 26 2024 1:08P Dictated by : GAYATRI DOYLE MD This examination was interpreted and the report reviewed and electronically signed by: GAYATRI DOYLE MD on Apr 26 2024 1:10PM EST [id number] [facility] Gram stain for investigation of transfusion reactionOrdered By: Nina Young on 02-01-2024 Microscopic observation Gram stain Nom (Unsp spec) [facility] No Panel InformationOrdered By: Nina Young on 02-01-2024 Genital Culture Presumptive C albicans [facility] Gram stain for investigation of transfusion reactionOrdered By: Angela Wagner on 10-02-2023 Microscopic observation Gram stain Nom (Unsp spec) [facility] Thin prep Papanicolaou smear with manual screeningOrdered By: Angela Wagner on 10-02-2023 Genital Culture Presumptive C albicans [facility] Basophil percentageOrdered B y: Radha Emanuel on 08-04-2023 Bilirubin [Mass/Vol] 0.20 mg/dL 0.20-1.00 [facility] Comment on above: For patients on eltr ombopag therapy, use of Dimension [place] TBIL is not recommended. Chloride [Moles/Vol] 103 mmol/L 98-107 [facility] Glucose [Mass/Vol] 95 mg/dL 74-106 [facility] Potassium [Moles/Vol] 3.6 mmol/L 3.5-5.1 [facility] Protein [Mass/Vol] 7.0 g/dL 6.4-8.2 [facility] Sodium [Moles/Vol] 136 mmol/L 136-145 [facility] - Chemistry and C hemistry - challengeOrdered By: Radha Emanuel on 08-04-2023 ALP [Catalytic activity/Vol] 64 U/L 45-117 [facility] ALT [Catalytic activity/Vol] 32 U/L 13-56 [facility] CO2 [Moles/Vol] 28.0 mmol/L 21.0-32.0 [facility] Globulin (S) [Mass/Vol] 3.5 g/dL 2.2-4.2 [facility] Urea nitrogen/Creatinine [Mass ratio] 15.2 mg/mg 10-20 [facility] No Panel InformationOrdered By: Radha Emanuel on 08-04-2023 Estimated GFR (MDRD) Amer 89 mL/min >60 [facility] Comment on above: GFR Calc Estimated GFR (MDRD) Non-Af Amer 74 mL/min >60 [facility] Comment on above: Non- GFR Calc Vitamin D 25-Hydroxy 38.2 ng/mL [facility] Comment on above: Vitamin D 25(OH) Sta tus Range Deficiency <20 ng/mL (50nmol/L) Insufficiency 20 - 30 ng/mL (50 - 75 nmol/L) Sufficiency 30 - 100 ng/mL (75 - 250 nmol/L) Toxicity >100 ng/mL (>250 nmol/L) Serum or plasma albumin judd urement (mass/volume)Ordered By: Radha Emanuel on 08-04-2023 Albumin [Mass/Vol] 3.5 g/dL 3.2-5.0 [facility] Serum or plasma albumin/glob ulin mass ratioOrdered By: Radha Emanuel on 08-04-2023 Albumin/Globulin [Mass ratio] 1.0 {ratio} 0.9-2.4 [facility] Serum or plasma calcium judd urement (mass/volume)Ordered By: Radha Emanuel on 08-04-2023 Calcium [Mass/Vol] 8.6 mg/dL 8.5-10.1 [facility] Serum or plasma creatinine m easurement (mass/volume)Ordered By: Radha Emanuel on 08-04-2023 Creatinine [Mass/Vol] 0.92 mg/dL 0.55-1.02 [facility] Comment on above: The validity of the calculated GFR & GFRAA in patients over 70 years has not been determined. Clinical correlation is essential. Serum or plasma urea nitroge n measurement (mass/volume)Ordered By: Radha Emanuel on 08-04-2023 Urea nitrogen [Mass/Vol] 14 mg/dL 7-18 [facility] Thin prep Papanicolaou smear with manual screeningOrdered By: Radha Emanuel on 08-04-2023 Thin prep Papanicolaou smear with manual screening 15 U/L 15-37 [facility] Thin prep Papanicolaou smear with manual screening 5 5-15 [facility] Absolute lymphocyte countOrd ered By: Dr. Emanuel on 01-29-2023 Lymphocytes Auto (Unsp spec) [#/Vol] 2.50 10*3/uL 0.83-4.51 [facility] Basophil percentageOrdered B y: Dr. Emanuel on 01-29-2023 Basophils/100 WBC (Bld) 0.5 % 0-1 [facility] Bilirubin [Mass/Vol] 0.20 mg/dL 0.20-1.00 [facility] Comment on above: For patients on eltr ombopag therapy, use of Dimension [place] TBIL is not recommended. Chloride [Moles/Vol] 105 mmol/L 98-107 [facility] Eosinophils/100 WBC (Bld) 2.9 % 0-5 [facility] Glucose [Mass/Vol] 128 mg/dL 74-106 [facility] Comment on above: Fasting Glucose resu lt greater than or equal to 126 mg/dL suggests DIABETES MELLITUS per A.D.A. criteria. Neutrophils (Bld) [#/Vol] 5.7 10*3/uL 2.0-7.7 [facility] Neutrophils/100 WBC (Bld) 62.9 % 47-70 [facility] Potassium [Moles/Vol] 3.6 mmol/L 3.5-5.1 [facility] Protein [Mass/Vol] 7.2 g/dL 6.4-8.2 [facility] Sodium [Moles/Vol] 139 mmol/L 136-145 [facility] WBC (Bld) [#/Vol] 9.1 10*3/uL 4.4-11.0 [facility] Blood erythrocytes count (nu mber/volume)Ordered By: Dr. Emanuel on 01-29-2023 RBC (Bld) [#/Vol] 4.54 10*6/uL 4.2-5.4 [facility] Blood hemoglobin measurement (mass/volume)Ordered By: Dr. Emanuel on 01-29-2023 Hemoglobin (Bld) [Mass/Vol] 13.5 g/dL 12.0-15.0 [facility] Blood lymphocytes/100 leukoc ytesOrdered By: Dr. Emanuel on 01-29-2023 Lymphocytes/100 WBC (Bld) 27.4 % 19-41 [facility] Blood monocytes/100 leukocyt esOrdered By: Dr. Emanuel on 01-29-2023 Monocytes/100 WBC (Bld) 5.9 % 0-10 [facility] Blood platelet mean volumeOr dered By: Dr. Emanuel on 01-29-2023 Platelet mean volume (Bld) [Entitic vol] 11.3 fL 6.2-12.0 [facility] Determination of erythrocyte mean corpuscular volume (MCV)Ordered By: Dr. Emanuel on 01-29-2023 MCV (RBC) [Entitic vol] 87.2 fL 81-99 [facility] Hematocrit Auto (Bld) [Volum e fraction]Ordered By: Dr. Emanuel on 01-29-2023 Hematocrit (Bld) [Volume fraction] 39.6 % 37-47 [facility] - Chemistry and C hemistry - challengeOrdered By: Dr. Emanuel on 01-29-2023 ALP [Catalytic activity/Vol] 65 U/L 45-117 [facility] ALT [Catalytic activity/Vol] 31 U/L 13-56 [facility] CO2 [Moles/Vol] 24.0 mmol/L 21.0-32.0 [facility] Globulin (S) [Mass/Vol] 3.5 g/dL 2.2-4.2 [facility] Urea nitrogen/Creatinine [Mass ratio] 10.7 mg/mg 10-20 [facility] - Hematology and Cell countsOrdered By: Dr. Emanuel on 01-29-2023 Erythrocyte distribution width (RBC) [Entitic vol] 40.5 fL 35.1-43.9 [facility] Erythrocyte distribution width (RBC) [Ratio] 12.8 % 11.6-14.6 [facility] Immature granulocytes/100 WBC (Bld) 0.400 % 0.0-0.9 [facility] Comment on above: IG% - Immature Granu locytes (promyelocytes, myelocytes and metamyelocytes) > 1% indicates that a LEFT SHIFT is Present. MCH (RBC) [Entitic mass] 29.7 pg 27.0-32.0 [facility] Nucleated RBC/100 WBC (Bld) [Ratio] 0 % 0-5 [facility] MCHC Auto (RBC) [Mass/Vol]Or dered By: Dr. Emanuel on 01-29-2023 MCHC (RBC) [Mass/Vol] 34.1 g/dL 32-36 [facility] No Panel InformationOrdered By: Dr. Emanuel on 01-29-2023 Estimated GFR (MDRD) Amer 113 mL/min >60 [facility] Comment on above: GFR Calc Estimated GFR (MDRD) Non-Af Amer 93 mL/min >60 [facility] Comment on above: Non- GFR Calc Vitamin D 25-Hydroxy 36.2 ng/mL [facility] Comment on above: Vitamin D 25(OH) Sta tus Range Deficiency <20 ng/mL (50nmol/L) Insufficiency 20 - 30 ng/mL (50 - 75 nmol/L) Sufficiency 30 - 100 ng/mL (75 - 250 nmol/L) Toxicity >100 ng/mL (>250 nmol/L) Platelets bldOrdered By: Dr. Emanuel on 01-29-2023 Platelets (Bld) [#/Vol] 246 10*3/uL 150-450 [facility] Serum or plasma albumin judd urement (mass/volume)Ordered By: Dr. Emanuel on 01-29-2023 Albumin [Mass/Vol] 3.7 g/dL 3.2-5.0 [facility] Serum or plasma albumin/glob ulin mass ratioOrdered By: Dr. Emanuel on 01-29-2023 Albumin/Globulin [Mass ratio] 1.1 {ratio} 0.9-2.4 [facility] Serum or plasma calcium judd urement (mass/volume)Ordered By: Dr. Emanuel on 01-29-2023 Calcium [Mass/Vol] 8.6 mg/dL 8.5-10.1 [facility] Serum or plasma creatinine m easurement (mass/volume)Ordered By: Dr. Emanuel on 01-29-2023 Creatinine [Mass/Vol] 0.75 mg/dL 0.55-1.02 [facility] Comment on above: The validity of the calculated GFR & GFRAA in patients over 70 years has not been determined. Clinical correlation is essential. Serum or plasma urea nitroge n measurement (mass/volume)Ordered By: Dr. Emanuel on 01-29-2023 Urea nitrogen [Mass/Vol] 8 mg/dL 7-18 [facility] Thin prep Papanicolaou smear with manual screeningOrdered By: Dr. Emanuel on 01-29-2023 Thin prep Papanicolaou smear with manual screening 19 U/L 15-37 [facility] Thin prep Papanicolaou smear with manual screening 10 5-15 [facility] Whole blood hemoglobin A1c/t otal hemoglobin ratio (mass fraction)Ordered By: Dr. Emanuel on 01-29-2023 HbA1c (Bld) [Mass fraction] 5.2 % 3.8-5.6 [facility] Comment on above: Normal < 5.7 % Predi abetic 5.7 - 6.4 % Diabetic >or= 6.5 % Please note range changes. CNOVon 10-28-2022 CNOV Office Visit (GENSWS) LORENE BARROS ([id number]) 1985 F Date Time Provider Department 10/28/22 1:15 PM GALEN WELCH During your visit today, we recorded the following information about you: Temperature Pulse Blood pressure Weight 97.9 degrees 97/minute 110/66 87.1 kg Height 1.6 m Galen Welch III, MD 10/28/2022 1:48 PM Signed Subjective: Patient is status post an ultrasound-guided fine-needle aspiration of a dominant right thyroid nodule on 10/16/2022. This was for a 2.2 cm nodule. Fine-needle aspiration results came back as a colloid nodule and was adequate for evaluation. Subjective:Blood pressure 110/66, pulse 97, temperature 36.6 ?C (97.9 ?F), height 160 cm (5' 3), weight 87.1 kg (192 lb), last menstrual period 07/17/2016, SpO2 99 %. Neck is supple no hard palpable nodules are identified Assessment: Uninodular goiter Plan: Patient will need to have yearly thyroid ultrasounds. If the nodule grows by more than 20% she will need to have a repeat fine-needle aspiration. Allergies As of Date: 10/28/2022 Noted Allergy Reaction NITROFURANTOIN 07/14/2021 14 - Other: See Comments MACROBID (NITROFURANTOIN MONOHYD/*10/13/2022 7 - Swelling Comments: Fatigue, nausea, throat felt tight. Date Reviewed: 10/28/2022 Reviewed by: Linsey Aggarwal LPN - Fully Assessed Reason for Visit: Follow Up [171] Cmt: Thyroid pathology Primary Visit Diagnosis:Uninodular goiter [E04.1] Prescriptions as of 10/28/2022 - sertraline (ZOLOFT) 50 mg tablet Take 50 mg by mouth once daily. - cetirizine HCl (ZYRTEC ORAL) Take by mouth. - fluticasone propionate (FLONASE NASAL) Use in the nose. - predniSONE (DELTASONE) 10 mg tablet To be taken orally as directed. Take 4 tabs x4 days, then 2 tabs for 3 days, then 1 tab for 3 days. - albuterol (PROVENTIL) 2.5 mg /3 mL (0.083 %) nebulizer solution Use 3 mL via nebulizer every 4 hours as needed for wheezing/shortness of breath. Use over 5-15minutes. - omeprazole (PRILOSEC) 20 mg capsule Take 1 capsule by mouth once daily. - ondansetron (ZOFRAN) 4 mg tablet Take 1 tablet by mouth every 8 hours as needed. - famotidine (PEPCID) 20 mg tablet Take 1 tablet by mouth twice daily as needed. - oseltamivir (TAMIFLU) 75 mg capsule Take 1 capsule by mouth once daily. - metoclopramide HCl (REGLAN) 10 mg tablet Take 1 tablet by mouth four times daily. - albuterol HFA (PROAIR HFA) 90 mcg/actuation inhaler Inhale 2 Puffs as instructed every 4 hours as needed. - OTC NUTRITIONAL SUPPLEMENT Natures Racquel, Pt is taking 3 capsules daily. - Breast Pump karen As directed - VIT/IRON FUMARATE/FA ( ORAL) Take by mouth. - DOCOSAHEXANOIC ACID ( DHA ORAL) Take by mouth. Problem List As Of Date 10/28/2022 Noted Resolved Encounter for supervision of normal first pregn*07/13/2015 01/02/2016 Hyperemesis affecting , antepartum [O2*09/10/2015 04/09/2016 Encounter for supervision of normal first pregn*12/18/2015 04/09/2016 Encounter for supervision of normal i*09/18/2016 Short interval between pregnancies affecting pr*09/18/2016 Nausea and vomiting in [O21.9] 09/18/2016 [place] macular dystrophy [H35.54] 05/30/2022 Visual field loss [H53.40] 05/30/2022 Letter Text Encounter Status:Closed by GALEN WELCH on 10/28/[address] [facility] CNOVon 10-16-2022 CNOV Office Visit ([facility]) LORENE BARROS ([id number]) 1985 F Date Time Provider Department 10/16/22 2:30 PM GALEN WELCH [facility] During your visit today, we recorded the following information about you: Sasha Cid LPN 10/16/2022 3:40 PM Signed UNIVERSAL PROTOCOL / SAFETY CHECKLIST Procedure to [...] Plan of Care Visit completed when applicable. BLAINE Moore LPN 10/16/2022 3:01 PM Signed Instructions After THYROID FINE NEEDLE ASPIRATION Please [...] you have any questions or concerns @ [phone]. Please make an appointment to follow up in one week with your physician and thank you for choosing the [facility]. Galen Welch III, MD 10/16/2022 3:40 PM Signed Preoperative diagnosis: Uninodular goiter Postoperative diagnosis: The [...] and the patient tolerated the procedure well. Referring Provider: SELF [[id number]] Allergies As of Date: 10/16/2022 Noted Allergy Reaction NITROFURANTOIN 07/14/2021 14 - Other: See Comments MACROBID (NITROFURANTOIN MONOHYD/*10/13/2022 7 - Swelling Comments: Fatigue, nausea, throat felt tight. Date Reviewed: 10/16/2022 Reviewed by: Sasha Cid LPN - Fully Assessed Reason for Visit: Procedure [88] Cmt: Right thyroid fna Primary Visit Diagnosis:Uninodular goiter [E04.1] Order(s):US THYROID BIOPSY RIGHT (POC) SURG USE ONLY [[id number]] Order #: [id number]. #:[id number]: 1 Prescriptions as of 10/16/2022 - sertraline (ZOLOFT) 50 mg tablet Take 50 mg by mouth once daily. - cetirizine HCl (ZYRTEC ORAL) Take by mouth. - fluticasone propionate (FLONASE NASAL) Use in the nose. - predniSONE (DELTASONE) 10 mg tablet To be taken orally as directed. Take 4 tabs x4 days, then 2 tabs for 3 days, then 1 tab for 3 days. - albuterol (PROVENTIL) 2.5 mg /3 mL (0.083 %) nebulizer solution Use 3 mL via nebulizer every 4 hours as needed for wheezing/shortness of breath. Use over 5-15minutes. - omeprazole (PRILOSEC) 20 mg capsule Take 1 capsule by mouth once daily. - ondansetron (ZOFRAN) 4 mg tablet Take 1 tablet by mouth every 8 hours as needed. - famotidine (PEPCID) 20 mg tablet Take 1 tablet by mouth twice daily as needed. - oseltamivir (TAMIFLU) 75 mg capsule Take 1 capsule by mouth once daily. - metoclopramide HCl (REGLAN) 10 mg tablet Take 1 tablet by mouth four times daily. - albuterol HFA (PROAIR HFA) 90 mcg/actuation inhaler Inhale 2 Puffs as instructed every 4 hours as needed. - OTC NUTRITIONAL SUPPLEMENT Natures [place]quel, Pt is taking 3 capsules daily. - Breast Pump karen As directed - VIT/IRON FUMARATE/FA ( ORAL) Take by mouth. - DOCOSAHEXANOIC ACID ( DHA ORAL) Take by mouth. Problem List As Of Date 10/16/2022 Noted Resolved Encounter for supervision of normal first pregn*07/13/2015 01/02/2016 Hyperemesis affecting , antepartum [O2*09/10/2015 04/09/2016 Encounter for supervision of normal first pregn*12/18/2015 04/09/2016 (more content not included)... Normal [facility] THYROID BIOPSY RIGHT (POC ) SURG USE ONLYon 10-16-2022 [facility] CNOVon 10-13-2022 CNOV Office Visit (SWS) LORENE BARROS ([id number]) 1985 F Date Time Provider Department 10/13/22 2:15 PM GALEN WELCH During your visit today, we recorded the following information about you: Temperature Pulse Blood pressure Weight 98.6 degrees 90/minute 112/70 86.4 kg Height 1.6 m Cindy Mancuso RN 10/13/2022 2:47 PM Signed [...] Neurologic: The patient denies a history of epilepsy/convulsions , denies headaches, denies head/spinal injuries, and denies [...] last Mammogram screening? N/A Last Colonoscopy: None JENNIFFER Awad III, MD 10/13/2022 4:02 PM Signed HISTORY AND PHYSICAL Lorene Barros 1985 REFERRING PHYSICIAN: Radha Emanuel, * CHIEF COMPLAINT: Consult (Thyroid consult) HPI: The patient is a 36 year old female with a complaint of a right thyroid nodule. This thyroid nodule was found on Ultrasound by [facility]. The patient denies pain, denies [...] Date UNSPECIFIED ORAL SURGERY PROCEDURE, BY REPORT Loring Teeth Current Outpatient Medications Medication Sig Dispense [...] tablet by mouth twice daily as needed. (Mary Ellen (more content not included)... Normal [facility] Cervical or vagninal specime n microscopic examination by cytology stain (reported ason 09-12-2022 Cytology report Cyto stain Doc (Cvx/Vag) Comment . [facility] Work Phone: Comment on above: The Pap smear is a s creening test designed to aid in thedetection of premalignant and malignant conditions of theuterine cervix. It is not a diagnostic procedure andshould not be used as the sole means of detecting cervicalcancer. Both false-positive and false-negative reports dooccur. Detection in cervical specim en of any of human papilloma virus (HPV) 16, 18, 31, 33,on 09-12-2022 HPV 16+18+31+33+35+39+45+5 1+52+56+58+59+66+68 DNA Probe+sig amp Ql (Cvx) Negative Negative [facility] Work Phone: Comment on above: This nucleic acid am plification test detects fourteen high- risk HPV types (16,18,31,33,35,39,45,51,52,56,58,59,66,68)without differentiation. Laboratory - Cytologyon 08-28 [employer] Cyto stain Nom (Cvx/Vag) [ID] Comment . [facility] Work Phone: Comment on above: Raffaele Bonilla totechnologist (ASCP) Laboratory - Miscellaneous t estson 09-12-2022 Service comment (Unsp spec) [Interp] Comment . [facility] Work Phone: Comment on above: This liquid based Th inPrep(R) pap test was screened withthe use of an image guided system. Service comment (Unsp spec) [Interp] . . [facility] Work Phone: Liquid-based cerv Pap + CT/G C by JOSE M w reflex to high-risk HPV for ASCUSon 09-12-2022 Cytology report Cyto stain.thin prep Doc (Cvx/Vag) Comment . [facility] Work Phone: Comment on above: Criteria not met, HP V Genotype not performed.Performed at: [facility] [place] [id number] [facility] [address], [place] [id number] Director: Shanda Lopez MD, Phone: [phone] at: [facility] Lab[address] [id number] Director: Mar Wen MD, Phone: [phone] at: - [facility] [id number] Director: Mar Wen MD, Phone: [phone] No Panel Informationon 09-12 Pathology report final diagnosis Narrative Comment . [facility] Work Phone: Comment on above: NEGATIVE FOR INTRAEP ITHELIAL LESION OR MALIGNANCY. [place] [facility] LORENE BARROS ([id number]) 1985 F Date Time Provider Department 03/05/22 MARI WONG [facility] During your visit today, we recorded the following information about you: Mari Wong [facility] 03/05/2022 9:47 AM Signed I called and spoke to Lorene. 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 We discussed that NCMD is usually non-progressive, but can be variable among individuals even within the same family with some individuals have visual acuities of 202/20 to 20/400 as well as normal color vision or other vision studies. Discussed that individuals may develop choroidal neovascularization which may lead to complications and worsening of vision loss so it is important to monitor these regularly. Reviewed that NCMD is inherited in an autosomal dominant manner. We reviewed that everyone has two copies of each gene. One is inherited from their mother and the other is inherited from their father. When a condition is autosomal dominant an individual only needs one pathogenic or disease causing change in one of their two genes to have symptoms. Since Ms. Barros was identified to have a genetic change in the PRDM13 gene, then each of her Children and siblings will have a 50% chance of also inheriting the change and possibly developing symptoms. The risks, benefits, and limitations of testing her children for this variant were explained and reviewed. She will consider if she wants them to undergo testing and notify me. 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 Common features of these conditions were reviewed and we discussed that carriers usually do not have features of these conditions, but would be at an increased chance to have an affected child if their partner were also a carrier. Neither of her children have signs or symptoms of these conditions at this time. Discussed that each of her siblings have a 50% chance of also being a carrier and can consider testing. At this time no additional genetic testing was recommended. Dr. Clancy recommended for Lorene to follow up with us in 1 year or sooner if concerns arise. Mari Wong M.S., C.G.C Licensed, Certified Genetic Counselor Allergies As of Date: 03/05/2022 (No Known Allergies) Date Reviewed: 01/22/2022 Reviewed by: CYNTHIA Oseguera - Fully Assessed Reason for Visit: Genetic Testing Results [Other] Primary Visit Diagnosis:[place] macular dystrophy [H35.54] Prescriptions as of 03/05/2022 - sertraline (ZOLOFT) 50 mg tablet Take 50 mg by mouth once daily. - cetirizine HCl (ZYRTEC ORAL) Take by mouth. - fluticasone propionate (FLONASE NASAL) Use in the nose. - predniSONE (DELTASONE) 10 mg tablet To be taken orally as directed. Take 4 tabs x4 days, then 2 tabs for 3 days, then 1 tab for 3 days. - albuterol (PROVENTIL) 2.5 mg /3 mL (0.083 %) nebulizer solution Use 3 mL via nebulizer every 4 hours as needed for wheezing/shortness of breath. Use over 5-15minutes. - omeprazole (PRILOSEC) 20 mg capsule Take 1 capsule by mouth once daily. - ondansetron (ZOFRAN) 4 mg tablet Take 1 tablet by mouth every 8 hours as needed. - famotidine (PEPCID) 20 mg tablet Take 1 tablet by mouth twice daily as needed. - oseltamivir (TAMIFLU) 75 mg capsule Take 1 capsule by mouth once daily. - metoclopramide HCl (REGLAN) 10 mg tablet Take 1 tablet by mouth four times daily. - albuterol HFA (PROAIR HFA) 90 mcg/actuation inhaler Inhale 2 Puffs as instructed every 4 hours as needed. - OTC NUTRITIONAL SUPPLEMENT Kristi Clement Pt is taking 3 capsules daily. - Breast Pump karen As directed - VIT/IRON FUMARATE/FA ( ORAL) Take by mouth. - DOCOSAHEXANOIC ACID ( DHA ORAL) Take by mouth. Problem List As Of Date 03/05/2022 Noted Resolved Encounter for supervision of normal first pregn*07/13/2015 01/02/2016 Hyperemesis affecting , antepartum [O2*09/10/2015 04/09/2016 Encounter for supervision of normal first pregn*12/18/2015 04/09/2016 Encounter for supervision of normal i*09/18/2016 Short interval between pregnancies affecting pr*09/18/2016 Nausea and vomiting in [O21.9] 09/18/2016 Encounter Status:Closed by MARI WONG on 03/05/[address] [facility] Viv 01-22-2022 CNOV Office Visit ([facility]) LORENE BARROS ([id number]) 1985 F Date Time Provider Department 01/22/22 9:30 AM MARI WONG [facility] During your visit today, we recorded the following information about you: Mari Wong [facility] 01/22/2022 12:33 PM Addendum Patient Name and confirmed at initiation of visit. Dr. Laura Clancy, I requested a genetic consultation for Lorene Barros, a 36 year old female, for [...] with dark adaptation, photophobia, and color discrimination. Lorene denied other systemic concerns such as digit [...] - UNSPECIFIED ORAL SURGERY PROCEDURE, BY REPORT [place]oring Teeth RELEVANT EVALUATIONS TO DATE: Base Eye [...] Type: SVL Additional Tests Color Right Left [facility] 07/08 10/08 Stereo Animals: 1/3 Circles: 0/9 [...] Type: SVL Additional Tests Color Right Left [facility] 07/08 10/08 Stereo Animals: 1/3 Circles: 0/9 [...] Fundus Exam Right Left Disc Normal Normal C/ (more content not included)... [facility] Normal [facility] Comment on above: Order Comment: Eleuterio grace Type: BLOOD SPECIMENOrdering Facility: Address: [address] [place] [address] Performed By: #### M ISC1 ####NON-INTERFACED REF LABSCLIA SEE SCANNED RESULTS TEST 1 [employer] Normal [facility] Comment on above: Order Comment: Eleuterio grace Type: BLOOD SPECIMENOrdering Facility: Address: [address] [place] [address] Performed By: #### M ISC1 ####NON-INTERFACED REF LABSCLIA SEE SCANNED RESULTS TEST RESULTS 1 View results in Scanned Documents link when available. Normal [facility] Comment on above: Order Comment: Eleuterio grace Type: BLOOD SPECIMENOrdering Facility: Address: [address] [place] [address] Performed By: #### M ISC1 ####NON-INTERFACED REF LABSCLIA SEE SCANNED RESULTS Office Visit: String Checkon 07-31-2017 Documentation of current medications (procedure) Done Invalid Interpretation Code [facility] Tobacco smoking status NHIS Former Invalid Interpretation Code [facility] Tobacco use CPHS Never smoker Invalid Interpretation Code [facility] Microbiology: Culture, R/O S trep Aon 07-22-2017 CUSTREPA . Invalid Interpretation Code [facility] Office Visit: UC: Sinusitis, Pharyngitison 07-20-2017 Fall risk assessment No Invalid Interpretation Code [facility] Rapid strep test Negative Invalid Interpretation Code [facility] Replaced Document: T4 Total, Thyroxinon 06-24-2017 Thyroxine (T4) 7.1 ug/dL Invalid Interpretation Code 4.8-13.9 [facility] Replaced Document: Thyroid S naveed Hormone (TSH)on 06-24-2017 Thyroid stimulating hormone (TSH) 0.78 u[iU]/mL Invalid Interpretation Code 0.358-3.74 [facility] Office Visit: OB Postpartumo n 06-12-2017 Adolescent depression screening assessment Adolescent depression screening assessment Invalid Interpretation Code [facility] Adult depression screening assessment Adult depression screening assessment Invalid Interpretation Code [facility] HCG.beta subunit ( test) Ql (U) Negative Invalid Interpretation Code [facility] Office Visit: Dysuriaon 04-29 Bilirubin Ql (U) Negative Invalid Interpretation Code [facility] blood in urine (hemoglobin) by dipstick 3+ Invalid Interpretation Code [facility] specific gravity, urine 1.015 Invalid Interpretation Code [facility] Urine, appearance clear Invalid Interpretation Code [facility] Urine, color yellow Invalid Interpretation Code [facility] Urine, glucose presence Negative Invalid Interpretation Code [facility] Urine, ketones presence Negative Invalid Interpretation Code [facility] Urine, leukocyte esterase presence 3+ Invalid Interpretation Code [facility] Urine, nitrite presence Negative Invalid Interpretation Code [facility] Urine, pH 6.0 [pH] Invalid Interpretation Code [facility] Urine, protein Albumin [Presence] in Urine Invalid Interpretation Code [facility] Urine, urobilinogen presence Negative Invalid Interpretation Code [facility] Lab Report: CBC-Complete Blo od Cnt No Diffon 04-30-2017 Erythrocyte distribution width Auto Ratio (RBC) 13.7 % Invalid Interpretation Code 11.6-14.6 [facility] Erythrocytes (RBC) 4.23 10*6/uL Invalid Interpretation Code 4.2-5.4 [facility] Hematocrit (HCT) 38.0 % Invalid Interpretation Code 37-47 [facility] Hemoglobin mass conc (Bld) 12.6 g/dL Invalid Interpretation Code 12.0-15.0 [facility] MCH 29.8 pg Invalid Interpretation Code 27.0-32.0 [facility] MCHC mass conc (RBC) 33.2 G/GL Invalid Interpretation Code 32-36 [facility] MCV 89.8 fL Invalid Interpretation Code 81-99 [facility] Platelets 174 10*3/mm3 Invalid Interpretation Code 150-450 [facility] PMV by Pablo 11.2 fL Invalid Interpretation Code 6.2-12.0 [facility] RDW SD 45.1 fL High 35.1-43.9 [facility] WBC (Leukocytes) 15.6 10*3/uL High 4.4-11.0 [facility] 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 Radha Emanuel MD Work Phone: [facility] 06-26-2025 16:13-0400 Body mass index (BMI) [Ratio] 31 kg/m2 Dr. Radha Emanuel MD Work Phone: [facility] 06-26-2025 16:13-0400 Body temperature 98.3 [degF] Dr. Radha Emanuel MD Work Phone: [facility] 06-26-2025 16:13-0400 Body weight 82.[address] Radha Emanuel MD Work Phone: [facility] 06-26-2025 16:13-0400 Diastolic blood pressure 82 mm[Hg] Dr. Radha Emanuel MD Work Phone: [facility] 06-26-2025 16:13-0400 Heart rate 89 /min Dr. Radha Emanuel MD Work Phone: [facility] 06-26-2025 16:13-0400 SaO2% (BldA) [Mass fraction] 99 % Dr. Radha Emanuel MD Work Phone: [facility] 06-26-2025 16:13-0400 Systolic blood pressure 118 mm[Hg] Dr. Radha Emanuel MD Work Phone: [facility] 02-01-2024 15:28-0400 Body height 162.[address] Radha Emanuel Work Phone: [facility] 02-01-2024 15:28-0400 Body mass index (BMI) [Ratio] 31.3 kg/m2 Dr. Radha Emanuel Work Phone: [facility] 02-01-2024 15:28-0400 Body weight 82.[address] Radha Emanuel Work Phone: [facility] 02-01-2024 15:28-0400 Diastolic blood pressure 80 mm[Hg] Dr. Radha Emanuel Work Phone: [facility] 02-01-2024 15:28-0400 Systolic blood pressure 123 mm[Hg] Dr. Radha Emanuel Work Phone: [facility] 01-22-2024 15:01-0400 Body temperature 99.5 [degF] Dr. Radha Emanuel Work Phone: [facility] 01-22-2024 15:01-0400 Diastolic blood pressure 70 mm[Hg] Dr. Radha Emanuel Work Phone: [facility] 01-22-2024 15:01-0400 Heart rate 85 /min Dr. Radha Emanuel Work Phone: [facility] 01-22-2024 15:01-0400 Respiratory rate 18 /min Dr. Radha Emanuel Work Phone: [facility] 01-22-2024 15:01-0400 SaO2% (BldA) [Mass fraction] 99 % Dr. Radha Emanuel Work Phone: [facility] 01-22-2024 15:01-0400 Systolic blood pressure 118 mm[Hg] Dr. Radha Emanuel Work Phone: [facility] 10-02-2023 16:03-0500 Body height 162.[address] Radha Emanuel Work Phone: [facility] 10-02-2023 16:02-0500 Body mass index (BMI) [Ratio] 32.2 kg/m2 Dr. Radha Emanuel Work Phone: [facility] 10-02-2023 16:02-0500 Body weight 85.[address] Radha Emanuel Work Phone: [facility] 10-02-2023 16:02-0500 Diastolic blood pressure 81 mm[Hg] Dr. Radha Emanuel Work Phone: [facility] 10-02-2023 16:02-0500 Systolic blood pressure 120 mm[Hg] Dr. Radha Emanuel Work Phone: [facility] 09-29-2023 13:32-0500 Body temperature 99.9 [degF] Dr. Radha Emanuel Work Phone: [facility] 09-29-2023 13:32-0500 Diastolic blood pressure 62 mm[Hg] Dr. Radha Emanuel Work Phone: [facility] 09-29-2023 13:32-0500 Heart rate 90 /min Dr. Radha Emanuel Work Phone: [facility] 09-29-2023 13:32-0500 Respiratory rate 12 /min Dr. Radha Emanuel Work Phone: [facility] 09-29-2023 13:32-0500 SaO2% (BldA) [Mass fraction] 99 % Dr. Radha Emanuel Work Phone: [facility] 09-29-2023 13:32-0500 Systolic blood pressure 102 mm[Hg] Dr. Radha Emanuel Work Phone: [facility] 06-20-2023 11:12-0400 Body temperature 99.2 [degF] Dr. Radha Emanuel Work Phone: [facility] 06-20-2023 11:12-0400 Diastolic blood pressure 87 mm[Hg] Dr. Radha Emanuel Work Phone: [facility] 06-20-2023 11:12-0400 Heart rate 83 /min Dr. Radha Emanuel Work Phone: [facility] 06-20-2023 11:12-0400 Respiratory rate 16 /min Dr. Radha Emanuel Work Phone: [facility] 06-20-2023 11:12-0400 SaO2% (BldA) [Mass fraction] 98 % Dr. Radha Emanuel Work Phone: [facility] 06-20-2023 11:12-0400 Systolic blood pressure 138 mm[Hg] Dr. Radha Emanuel Work Phone: [facility] 10-28-2022 13:28-0500 Body height 160 cm Galen Welch MD Work Phone: [facility] 10-28-2022 13:28-0500 Body temperature 97.9 [degF] Galen Welch MD Work Phone: [facility] 10-28-2022 13:28-0500 Body weight 87.09 kg Galen Welch MD Work Phone: [facility] 10-28-2022 13:28-0500 Diastolic blood pressure 66 mm[Hg] Galen Welch MD Work Phone: [facility] 10-28-2022 13:28-0500 Heart rate 97 /min Galen Welch MD Work Phone: [facility] 10-28-2022 13:28-0500 SaO2% (BldA) [Mass fraction] 99 % Galen Welch MD Work Phone: [facility] 10-28-2022 13:28-0500 Systolic blood pressure 110 mm[Hg] Galen Welch MD Work Phone: [facility] 10-13-2022 14:34-0500 Body height 160 cm Galen Welch MD Work Phone: [facility] 10-13-2022 14:34-0500 Body temperature 98.6 [degF] Galen Welch MD Work Phone: [facility] 10-13-2022 14:34-0500 Body weight 86.36 kg Galen Welch MD Work Phone: [facility] 10-13-2022 14:34-0500 Diastolic blood pressure 70 mm[Hg] Galen Welch MD Work Phone: [facility] 10-13-2022 14:34-0500 Heart rate 90 /min Galen Welch MD Work Phone: [facility] 10-13-2022 14:34-0500 SaO2% (BldA) [Mass fraction] 100 % Galen Welch MD Work Phone: [facility] 10-13-2022 14:34-0500 Systolic blood pressure 112 mm[Hg] Galen Welch MD Work Phone: [facility] 09-11-2022 16:06-0500 Body height 162.[address] Radha Emanuel Work Phone: [facility] Work Phone: 09-11-2022 16:06-0500 Body mass index (BMI) [Ratio] 31.9 kg/m2 Dr. Radha Emanuel Work Phone: [facility] Work Phone: 09-11-2022 16:06-0500 Body weight 84.[address] Radha Emanuel Work Phone: [facility] Work Phone: 09-11-2022 16:06-0500 Diastolic blood pressure 83 mm[Hg] Dr. Radha Emanuel Work Phone: [facility] Work Phone: 09-11-2022 16:06-0500 Systolic blood pressure 124 mm[Hg] Dr. Radha Emanuel Work Phone: [facility] Work Phone: 07-31-2017 14:30-0400 BMI (Body Mass Index) 26.43 kg/m2 Angela Wagner MD [facility] 07-31-2017 14:30-0400 BP Diastolic 74 mm[Hg] Angela Wagner MD [facility] 07-31-2017 14:30-0400 BP Systolic 115 mm[Hg] Angela Wagner MD [facility] 07-31-2017 14:30-0400 Height 162.56 cm Angela Wagner MD [facility] 07-31-2017 14:30-0400 Weight 69.85 kg Angela Wagner MD [facility] 07-20-2017 14:27-0400 Body Temperature 98.2 [degF] Angela Wagner MD [facility] 07-20-2017 14:27-0400 Height 162.56 cm Angela Wagner MD [facility] 07-20-2017 14:27-0400 Pulse (Heart Rate) 95 /min Angela Wagner MD [facility] 07-20-2017 14:27-0400 Respiratory Rate 12 /min Angela Wagner MD [facility] 05-25-2017 11:42-0400 Body Temperature 96.4 [degF] Angela Wagner MD [facility] Encounters Encounter Date Encounter Type Care Provider Facility Start: 06-26-2025 End: 06-26-2025 Patient encounter procedure Tank Farmer [facility] Work Phone: Start: 06-26-2025 End: 06-26-[address] Radha Emanuel MD Work Phone: [facility] Start: 11-11-2024 End: 11-11-2024 ambulatory Angela Wagner Facility:[facility] Start: 11-11-2024 End: 11-11-2024 ambulatory Radha Emanuel Facility:[facility] Start: 09-14-2024 End: 09-14-2024 ambulatory Radha Emanuel Facility:[facility] Start: 09-14-2024 End: 09-14-2024 ambulatory Radha Emanuel Facility:[facility] Start: 08-31-2024 End: 08-31-2024 ambulatory Radha Emanuel Facility:[facility] Start: 04-26-2024 ambulatory RADHA EMANUEL Facilit y:[facility] Start: 04-26-2024 End: 04-26-2024 Subsequent hospital visit by physician Ct [facility] Radiology Comment on above: Other allergic rhini tis [J30.89] Start: 02-01-2024 End: 02-01-[address] Radha Emanuel Work Phone: [facility] Work Phone: Start: 02-01-2024 End: 02-01-[address] Radha Emanuel Work Phone: [facility]-Laboratory, Specimen Work Phone: Start: 02-01-2024 End: 02-01-[address] Radha Emanuel Work Phone: [facility] Work Phone: Start: 01-30-2024 End: 01-30-[address] Radha Emanuel Work Phone: [facility] Work Phone: Start: 10-02-2023 End: 10-02-[address] Radha Emanuel Work Phone: [facility] Work Phone: Start: 10-02-2023 End: 10-02-[address] Radha Emanuel Work Phone: [facility] Work Phone: Start: 10-02-2023 End: 10-02-[address] Radha Emanuel Work Phone: [facility] Work Phone: Start: 09-29-2023 End: 09-29-[address] Radha Emanuel Work Phone: [facility] Work Phone: Start: 08-04-2023 End: 08-04-[address] Radha Emanuel Work Phone: [facility] Work Phone: Start: 08-04-2023 End: 08-04-[address] Radha Emanuel Work Phone: [facility] Start: 06-20-2023 End: 06-20-[address] Radha Emanuel Work Phone: [facility] Work Phone: Start: 04-14-2023 ambulatory Memo Gee [facility] Work Phone: Genetic [facility] Comment on above: Sponsored Genetic Te sting Research Study Start: 04-14-2023 E-mail encounter fro m caregiver Memo Gerard [facility] Work Phone: [facility] Start: 01-29-2023 End: 01-29-2023 ambulatory [facility] Work Phone: Start: 01-29-2023 End: 01-29-[address] [facility] Start: 10-28-2022 End: 10-28-2022 ambulatory GALEN WELCH Facility:[facility] Start: 10-28-2022 End: 10-28-2022 Patient encounter procedure Galen Welch MD Work Phone: General Surgery Comment on above: Uninodular goiter (P rimary Dx) Start: 10-17-2022 End: 10-17-2022 Patient encounter procedure [facility] Specimen Start: 10-16-2022 End: 10-16-2022 ambulatory GALEN WELCH Facility:[facility] Start: 10-16-2022 End: 10-16-2022 Patient encounter procedure Galen Welch MD Work Phone: General Surgery Comment on above: Uninodular goiter (P rimary Dx) Start: 10-13-2022 End: 10-13-2022 ambulatory GALEN WELCH Facility:[facility] Start: 10-13-2022 End: 10-13-2022 Patient encounter procedure Galen Welch MD Work Phone: General Surgery Comment on above: Uninodular goiter (P rimary Dx) Start: 09-23-2022 End: 09-23-[address] Radha Emanuel Work Phone: [facility] Work Phone: Start: 09-23-2022 End: 09-23-[address] Radha Emanuel Work Phone: [facility] Start: 09-12-2022 End: 09-12-[address] Radha Emanuel Work Phone: [facility] Work Phone: Start: 09-12-2022 End: 09-12-[address] Radha Emanuel Work Phone: [facility] Start: 09-11-2022 End: 09-11-[address] Radha Emanuel Work Phone: [facility] Start: 07-30-2022 End: 07-30-[address] Radha Emanuel Work Phone: [facility] Start: 07-01-2022 End: 07-01-2022 Patient encounter procedure Diomedes Saldana MD Work Phone: Ophthalmology Comment on above: [place] macul ar dystrophy (Primary Dx); Pigmentary retinal dystrophy Start: 07-01-2022 End: 07-01-2022 ambulatory LAURA CLANCY Facility:[facility] Start: 05-30-2022 End: 05-30-2022 ambulatory MELANIE CALDWELL Facility:[facility] Start: 05-29-2022 End: 05-29-2022 ambulatory [facility] Work Phone: Start: 05-29-2022 End: 05-29-2022 Patient encounter procedure [facility] Start: 01-23-2022 Orders Only Laura Cruz i, MD Work Phone: Ophthalmology Comment on above: Pigmentary retinal d ystrophy (Primary Dx); [place] macular dystrophy Start: 01-22-2022 End: 01-23-2022 ambulatory LAURA CLANCY Facility:[facility] Start: 01-22-2022 End: 01-22-2022 ambulatory AMRI WONG Facility:[facility] Procedures Date Procedure Procedure Detail Performing Clinician Start: 04-26-2024 Ct maxillofacial w/o contrast material Yves Hicks Work Phone: Start: 02-01-[address] Kirby Emanuel Work Phone: Start: 02-01-2024 Investigation of transfusion reaction Dr. Radha Emanuel Work Phone: Start: 10-02-2023 Cytopathology proced ure, preparation of smear, genital source Dr. Radha Emanuel Work Phone: Start: 10-02-2023 Investigation of transfusion reaction Dr. Radha Emanuel Work Phone: Start: 10-02-2023 US scan of thyroid Dr. Radha Emanuel Work Phone: Start: 10-16-2022 US THYROID BIOPSY RI GHT (POC) SURG USE ONLY Galen Welch MD Work Phone: Start: 09-23-[address] Pauline Emanuel Work Phone: Start: 09-23-[address] Radha Emanuel Work Phone: Start: 09-23-2022 US scan of thyroid Dr. Radha Emanuel Work Phone: Start: 07-30-2022 Plain chest X-ray Dr. Pauline Emanuel Work Phone: Start: 05-29-2022 MRI of orbit, face a nd neck with contrast Start: 07-31-2017 End: 08-02-2017 Us pelvic nonobstetric [...] Treatment Date Care Activity Detail Author Start: 05-09-2031 Urine microalbumin profile DTaP,Tdap,Td Vaccine (10 - Td or Tdap) [facility] Start: 02-04-2027 Urine microalbumin profile DTAP,TDAP,TD (9 - Td or Tdap) [facility] Start: 05-29-2024 Influenza vaccination Influenza Vaccine (#1) 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 Expected: 07/16/2023, Expires: 12/23/2023 [facility] Work Phone: Comment on above: Expected: 07/16/2023, Expires: Start: 05-29-2023 Covid-19 Vaccine () Covid-19 Vaccine () [facility] Start: 05-29-2023 Influenza vaccination INFLUENZA (#1) [facility] Start: 09-28-2022 DEPRESSION ASSESSMENT DEPRESSION ASSESSMENT [facility] Start: 09-12-2022 Liquid based cervical cytology screening [facility] Work Phone: Start: 05-29-2022 Influenza vaccination [facility] Start: 09-28-2021 DEPRESSION ASSESSMENT DEPRESSION ASSESSMENT [facility] Start: 08-14-2019 PAP TESTING PAP TESTING [facility] Start: 12-24-2017 HPV TESTING HPV TESTING [facility] Start: 08-14-2017 Screening for malignant neoplasm of cervix Cervical Cancer Screening [facility] Start: 07-20-2017 End: 07-20-2017 Streptococcus.beta-hemolyt ic [Presence] in Throat by Organism specific culture [facility] Start: 07-02-2017 End: 07-02-2017 Follow Up Appt 1 year Follow Up Appt 1 year [facility] Start: 06-12-2017 End: 06-24-2017 Thyroid imaging with vascular flow Thyroid imaging (including vascular flow, when performed); [facility] Start: 06-12-2017 End: 06-24-2017 Thyroid stimulating hormone (TSH) *TSH [facility] Start: 06-12-2017 End: 06-24-2017 Thyroxine (T4) *T4 TT4 (Thyroxine Total) [facility] Start: 05-25-2017 End: 05-25-2017 *CUUID - Urine STEPHIE Culture - Identificatn *CUUID - Urine STEPHIE Culture - Identificatn [facility] Start: 12-24-2005 Anxiety Screening Anxiety Screening [facility] Start: 12-24-2005 Depression Screening Depression Screening [facility] Start: 1999 Adult depression screening assessment DEPRESSION SCREENING [facility] Start: 12-24-1992 COVID-19 VACCINE (1) COVID-19 VACCINE (1) [facility] Start: 06-26-1988 COVID-19 VACCINE (#1) COVID-19 VACCINE (#1) [facility] Camera fundoscopy FUNDUS PHOTOS OU (BOTH EYES) OPHT Imaging Routine [place] macular dystrophy Pigmentary retinal dystrophy 07/01/2022 2:00 PM EDT [facility] Work Phone: End: 07-17-2023 EOG OU (BOTH EYES) EOG OU (BOTH EYES) OPHT Imaging Routine Pigmentary retinal dystrophy [place] macular dystrophy 1 Occurrences starting 01/23/2022 until 07/17/2023 [facility] Work Phone: Comment on above: 1 Occurrences starting 01/23/2022 until 07/17/2023 End: 07-17-2023 FULL FIELD ELECTRORETINOGRAPHY (ERG) OU (BOTH EYES) FULL FIELD ELECTRORETINOGRAPHY (ERG) OU (BOTH EYES) OPHT Imaging Routine Pigmentary retinal dystrophy [place] macular dystrophy 1 Occurrences starting 01/23/2022 until 07/17/2023 [facility] Work Phone: Comment on above: 1 Occurrences starting 01/23/2022 until 07/17/2023 End: 07-17-2023 MULTIFOCAL ELECTRORETINOGRAPHY (ERG) OU(BOTH EYES) MULTIFOCAL ELECTRORETINOGRAPHY (ERG) OU(BOTH EYES) OPHT Imaging Routine Pigmentary retinal dystrophy [place] macular dystrophy 1 Occurrences starting 01/23/2022 until 07/17/2023 [facility] Work Phone: Comment on above: 1 Occurrences starting 01/23/2022 until 07/17/2023 OCT MACULA CIRRUS OU (BOTH EYES) OCT MACULA CIRRUS OU (BOTH EYES) OPHT Imaging Routine [place] macular dystrophy Pigmentary retinal dystrophy 07/01/2022 1:18 PM EDT [facility] Work Phone: Path report.final Dx Spec Wo [facility] Work Phone: End: 07-17-2023 PATTERN ELECTRORETINOGRAPHY (ERG) OU(BOTH EYES) PATTERN ELECTRORETINOGRAPHY (ERG) OU(BOTH EYES) OPHT Imaging Routine Pigmentary retinal dystrophy [place] macular dystrophy 1 Occurrences starting 01/23/2022 until 07/17/2023 [facility] Work Phone: Comment on above: 1 Occurrences starting 01/23/2022 until 07/17/2023 US Pelvis [facility] Work Phone: US Pelvis transvaginal [facility] Work Phone: US Thyroid gland [facility] Work Phone: End: 07-17-2023 VISUAL EVOKED POTENTIAL (VEP) OU (BOTH EYES) VISUAL EVOKED POTENTIAL (VEP) OU (BOTH EYES) OPHT Imaging Routine Pigmentary retinal dystrophy [place] macular dystrophy 1 Occurrences starting 01/23/2022 until 07/17/2023 [facility] Work Phone: Comment on above: 1 Occurrences starting 01/23/2022 until 07/17/2023 [facility] Immunizations Immunization Date Immunization Notes Care Provider Renetta malik 02-04-2017 tetanus toxoid, redu cindi diphtheria toxoid, and acellular pertussis vaccine, adsorbed Laura Blancas MD Work Phone: [facility] Work Phone: 12-03-2015 tetanus toxoid, redu cindi diphtheria toxoid, and acellular pertussis vaccine, adsorbed Laura Blancas MD Work Phone: [facility] Work Phone: 11-17-2002 diphtheria and tetan us toxoids, adsorbed for pediatric use Laura Blancas MD Work Phone: [facility] Work Phone: 05-11-2002 hepatitis B vaccine, pediatric or pediatric/adolescent dosage Laura Blancas MD Work Phone: [facility] Work Phone: 11-25-2001 hepatitis B vaccine, pediatric or pediatric/adolescent dosage Laura Blancas MD Work Phone: [facility] Work Phone: 10-25-2001 hepatitis B vaccine, pediatric or pediatric/adolescent dosage Laura Blancas MD Work Phone: [facility] Work Phone: 02-04-2000 measles, mumps and rubella virus vaccine Laura Blancas MD Work Phone: [facility] Work Phone: 12-18-1992 diphtheria, tetanus toxoids and pertussis vaccine Laura Blancas MD Work Phone: [facility] Work Phone: 06-19-1989 diphtheria, tetanus toxoids and pertussis vaccine Laura Blancas MD Work Phone: [facility] Work Phone: 06-19-1989 haemophilus influenz ae type b vaccine, HbOC conjugate Laura Blancas MD Work Phone: [facility] Work Phone: 06-19-1989 poliovirus vaccine, inactivated Laura Blancas MD Work Phone: [facility] Work Phone: 04-20-1989 measles, mumps and rubella virus vaccine Laura Blancas MD Work Phone: [facility] Work Phone: 12-18-1988 poliovirus vaccine, inactivated Laura Blancas MD Work Phone: [facility] Work Phone: 06-17-1988 diphtheria, tetanus toxoids and pertussis vaccine Laura Blancas MD Work Phone: [facility] Work Phone: 03-18-1988 diphtheria, tetanus toxoids and pertussis vaccine Laura Blancas MD Work Phone: [facility] Work Phone: 03-18-1988 poliovirus vaccine, inactivated Laura Blancas MD Work Phone: [facility] Work Phone: 02-06-1988 diphtheria, tetanus toxoids and pertussis vaccine Laura Blancas MD Work Phone: [facility] Work Phone: 02-06-1988 poliovirus vaccine, inactivated Laura Blancas MD Work Phone: [facility] Work Phone: Payers Date Payer Category Payer Self-pay [id number] 2013 Unknown MMO MMO [employer] [id number] 2013-Present [phone] [address] [place] [address] PPO [id number] 2013 Unknown [id number] 2013 Unknown [id number] Unknown [id number] Unknown [id number] Unknown [id number] Unknown [id number] Unknown [id number] Unknown [id number] Social History Date Type Detail Facility Start: 07-29-2011 End: 01-22-2024 Tobacco smoking status NHIS Never smoked tobacco [facility] Work Phone: Start: 07-29-2011 End: 05-30-2022 Tobacco use and exposure Former smokeless tobacco user [facility] Work Phone: History of tobacco use Snuff User [facility] Work Phone: Start: 01-22-2022 End: 10-28-2022 Alcohol intake Current non-drinker of alcohol (finding) [facility] Start: 07-12-2010 End: 05-30-2022 Tobacco Comment Tobacco use X3yrs [facility] Start: 1985 Sex Assigned At Not on file C [facility] Start: 01-12-2022 End: 01-22-2022 Exposure to SARS-CoV-2 (event) Unable to assess [facility] Work Phone: Start: 08-23-2021 End: 01-22-2024 Tobacco smoking status NHIS Unknown if ever smoked [facility] Start: 02-24-2016 None [facility] Start: 02-24-2016 Spouse/ Signif icant Other [facility] Start: 02-24-2016 Non-smoker [facility] Start: 1985 Sex Assigned At Female W [facility] Start: 06-21-2022 End: 07-01-2022 Exposure to SARS-CoV-2 (event) Not sure [facility] Start: 10-11-2022 End: 10-28-2022 History of Social function [facility] Start: 10-11-2022 End: 10-28-2022 Tobacco use panel [facility] National Score (1-100), lower number is lower risk 57 [facility] Clinical Notes 12-18-2015 to 06-26-2025 Note Date & Type Note Facility 06-26-2025 Progress note [facility] 06-26-2025 Progress note Note Date/Time June 26, 2025 4:48pm [facility] [address], [address] [place] [address] OFFICE VISIT Date of Service: 06/26/25 MR#: [id number] Acct: [id number] Name: LORENE BARROS Rep #: [id number] : 1985 Provider: LOIDA Lopez Age/Sex: 39/F Location: [facility] Status: Signed Intake Vital Signs 11/11/24 13:30 06/26/25 16:13 Height 5 ft 4 in 5 ft 4 in Weight: 185 lb 8 oz 181 lb BMI 31.8 31.0 BP 130/85 H 118/82 H Blood Pressure Location Lt brachial Position Sitting Pulse 89 Pulse Source Monitor Temp 98.3 F Temp Source Oral Pulse Oximetry (%) 99 Oxygen Delivery Method room air Intake Visit Reasons: HEAD CONGESTION Chief Complaint: Head Congestion Accompanied by: Self Allergies nitrofurantoin (From Macrobid) Adverse Reaction (Intermediate, Verified 06/26/2516:08) dizzy Medications ?Medication ?Instructions ?Recorded ?Confirmed ?Type albuterol sulfate 90 mcg/actuation 1 - 2 inh inhalatio n Q4H PRN PRN 06/25/21 06/26/25 History aerosol inhaler sob L.acid,christopher-B.animal,bifid, 1 cap PO DAILY 11/1106/26/25 History 50 billion cell capsule,delayed rel ([employer] Women Probiotic) levonorgestrel 20.4 mcg/24 hr (up 1 device intrauterin e ONCE 11/11/24 06/26/25 History to 8 yrs) 52 mg intrauterine device (Liletta) loratadine 10 mg tablet (Claritin) 10 mg PO QDAY 11/1106/26/25 History sertraline 50 mg tablet 50 mg PO DAILY #30 tabs 10/2906/26/25 Rx tiotropium bromide 1.25 2 puff inhalation Q24H 11/1106/26/25 History mcg/actuation mist for inhalation (Spiriva Respimat) nystatin-triamcinolone 100,000 1 applic topical TID #1 5 grams 11/14/24 06/26/25 Rx unit/gram-0.1 % topical ointment prednisone 10 mg tablet 10 mg PO QDAY #30 tabs 06/2606/26/25 Rx Nurse's Note: Head congestion, sinus pressure, pt stating feels like being choked, feeling constricted, feels the pressure burning in ears and neck. X 1 day. PFSH Medical History Right lower lobe pulmonary infiltrate Pelvic pain Pelvic pain Thyromegaly Back problem Asthma Encounter for IUD insertion Surgical History History of wisdom tooth extraction, class IV edentulism Family History Grandfather Diabetes Hypertension Grandfather Cancer Throat Son Asthma Social History adopted: No household members: family housing: house number of children: 2 current occupational status: employed current occupation: [employer] current occupational exposures/hazards: Yes pets and animals: Yes history of recent travel: No Smoking Status: Never smoker alcohol intake: current alcohol intake frequency: holidays/special occasions only substance use type: does not use seatbelt use: always do you feel safe at home: Yes additional social history: - Nav HPI HPI Chief Complaint: Head Congestion Details: LORENE BARROS, is a 39 F who presents to the office today for initial evaluation ~24 hour ago developing head congestion, sinus pressure, and constricted throat, and pressure burning behind ears/ neck/ mid back. Patient states using no esvk-yun-nhjiyuy medications - stating this happens to her everyfall and her contact assembler doesn't feel her symptoms are severe enough to warrent treatment in their office. Pateint notes no pruritic rash nor chest pressure w/ sob/ padilla. No other associated symptoms and no other alleviating/aggravating factors. ROS Const Constitutional: No other (As above) Exam Const General: cooperative, healthy appearing and no acute distress Orientation: alert, awake HENKY Head: normal to inspection Ears: hearing grossly normal bilaterally, external ears normal, TM's normal bilaterally and EAC's normal Nose: external nose normal, nares normal, septum normal and no nasal discharge Face and sinus: normal facial exam, sinuses nontender and face symmetric Mouth: oral mucosae normal, lip normal, tongue normal and oropharynx normal Throat: posterior oropharynx normal, tonsils normal, uvula midline and no postnasal drainage Eyes General: appearance normal, both eyes and all related structures Neck Neck: normal visual inspection, full ROM, no lymphadenopathy, no meningeal signsand supple Neck mass: No Thyroid: thyroid normal Lymphatic: no lymphadenopathy noted Chest Chest palpation & inspection: normal inspection of the chest Resp Effort & Inspection: normal respiratory effort and able to speak in complete sentences Auscultation: Bilateral: Clear to Auscultation Cardio Palpation: normal PMI Rate: regular rate Rhythm: regular rhythm Heart Sounds: S1 normal, S2 normal Pulses: radial pulses present GI Inspection: normal to inspection Skin General: no rashes or lesions noted Other: No rash appreciated Neuro General: patient alert, patient awake Cognition: normal cognition Speech: speech normal Extrem General: normal to inspection Psych Appearance: grossly normal Mental Status: mental status grossly normal Mood: congruent mood Affect: normal affect Speech and Movement: speech and movement normal Attitude: cooperative Diagnoses Allergic reaction T78.40XA Assessment and Plan Assessment and Plan (1) allergic reaction: Status: Acute Plan: Kenalog 40 mg IM x 1 to left deltoid in office today. Prednisone as prescribed today. Supportive measures as instructed today. Follow-up with PCP in 3 to 5 days should symptoms not improve, ED sooner should symptoms worsen or any other concerns develop. Patient states acknowledging understanding all the above. Office Procedures Ortho Injections Injections Is this a patient provided medication?: No Office Meds Kenalog 40 mg/mL suspension for injection Performing Provider: LOIDA Webb [facility] Administered by: Savannah German MA on 06/26/25 16:38 Dose Route Admin Location Dispensed Lot Number Expiration Date Pack age NDC NDC Bead Wrapper 40 mg intra-articular left Delt 1 mL [id number] 02/24/26 8850-6382-10 [id number] [employer] Coding Level of Care Code Off vis,est,level 3 Assessment and Plan Assessment and Plan Orders: Orders Kenalog Injection Today T78.40XA - Allergy, unspecified, initial encounter Medications: New prednisone 4 tablets daily x3 days, then 3 tablets daily x3 days, then 2 tablets daily x3 days, then 1 tablet daily x3 days 10 mg PO QDAY 30 tabs 0RF 06/26/25 1704 <Electronically signed by Tank MARISCAL> Date _ Tank MARISCAL Cosigner Signature: Date (if applicable) CC: ~ Edmond [employer] Work Phone: 1(278) 823-682007-30-2024 Miscellaneous Notes* George Lazo - Dana Richard CT - 04/26/2024 10:45 AM EDT Radiology Service Progress Note PATIENT NAME: Lorene Barros DATE OF SERVICE: April 26, 2024 TIME: 10:37 AM PATIENT IDENTITY VERIFICATION COMPLETED USING TWO (2) IDENTIFIERS: Name and Date of confirmedby patient verbally and Name and Date of confirmed by identification band. FALL SCREENING: Has the patient had 2 falls in the last year or 1 fall with injury or currently using an Ambulatory Assistive Device (Walker, Cane, Wheelchair, Crutches, etc.)? No PATIENT GENDER DATA: Female. status: : No status: NO. PATIENT RELEVANT IMPLANT DATA REVIEWED: Not Applicable PATIENT PRESENTS WITH AN IMPLANTABLE OR ATTACHED MACHINE HOOP MAKER: No RADIOLOGY DEPARTMENT: CT; Exam(s) Completed: Sinus PERIPHERAL IV DATA: Not applicable SIGNED BY: JUICE Gee April 26, 2024 10:37 AM documented in this encounterOhio[facility] Progress note* Dana Johnston CT - 04/26/2024 10:45 AM EDT Radiology Service Progress Note PATIENT NAME: Lorene Barros DATE OF SERVICE: April 26, 2024 TIME: 10:37 AM PATIENT IDENTITY VERIFICATION COMPLETED USING TWO (2) IDENTIFIERS: Name and Date of confirmedby patient verbally and Name and Date of confirmed by identification band. FALL SCREENING: Has the patient had 2 falls in the last year or 1 fall with injury or currently using an Ambulatory Assistive Device (Walker, Cane, Wheelchair, Crutches, etc.)? No PATIENT GENDER DATA: Female. status: : No status: NO. PATIENT RELEVANT IMPLANT DATA REVIEWED: Not Applicable PATIENT PRESENTS WITH AN IMPLANTABLE OR ATTACHED MACHINE HOOP MAKER: No RADIOLOGY DEPARTMENT: CT; Exam(s) Completed: Sinus PERIPHERAL IV DATA: Not applicable SIGNED BY: JUICE Gee April 26, 2024 10:37 AM [facility]01-31-2023 NoteHNO ID: [id number] Author: Galen Welch MD Service: ? Author [...] ?C (97.9 ?F), height 160 cm (5' 3), weight 87.1 kg (192 lb), last menstrual period 07/17/2016, SpO2 99 %. Neck is supple no hard palpable nodules are identified Assessment: Uninodular goiter Plan: Patient will need to have yearly thyroid ultrasounds. If the nodule grows by more than 20% she will need to have a repeat fine-needle aspiration.[facility]01-31-2023 History of Present illness Narrative* Galen Welch MD - 10/28/2022 1:44 PM EST Subjective: Patient is status post an ultrasound-guided fine-needle aspiration of a dominant right thyroid nodule on 10/16/2022. This was for a 2.2 cm nodule. Fine-needle aspiration results came back as a colloid nodule and was adequate for evaluation. Subjective:Blood pressure 110/66, pulse 97, temperature 36.6 C (97.9 F), height 160 cm (5' 3), weight 87.1 kg (192 lb), last menstrual period 07/17/2016, SpO2 99 %. Neck is supple no hard palpable nodules are identified Assessment: Uninodular goiter Plan: Patient will need to have yearly thyroid ultrasounds. If the nodule grows by more than 20% she will need to have a repeat fine-needle aspiration. documented in this encounterOhio[facility]01-19-2023 NoteHNO ID: [id number] Author: Galen Welch MD Service: ? Author [...] applied and the patient tolerated the procedure well.[facility]01-19-2023 NoteHNO ID: [id number] Author: Sasha Cid LPN Service: ? Author [...] Care Visit completed when applicable. [facility] History of Present illness Narrative* Galen Welch MD - 10/16/2022 3:39 PM EST Preoperative diagnosis: Uninodular goiter Postoperative diagnosis: The [...] glass slides. This had a very thick colloidthe appearance to it very reminiscent of a colloid nodule. There was nothing suspicious about this. Sterile dressings were applied and the patient tolerated the procedure well. * Sasha Cid LPN - 10/16/2022 2:38 PM EST UNIVERSAL PROTOCOL / SAFETY CHECKLIST Procedure to [...] applicable. Sasha Cid LPN documented in this encounterOhio[facility]01-19-2023 Instructions* Patient Instructions* Sasha Cid LPN - 10/16/2022 3:01 PM [...] you have any questions or concerns @ [phone]. Please make an appointment to follow up in one week with your physician and thank you for choosing the [facility] [place]. documented in this encounterOhio[facility]01-16-2023 NoteHNO ID: [id number] Author: Galen Welch MD Service: ? Author Type: Physician Type: Progress Notes Filed: 10/13/2022 4:02 PM Note Text: HISTORY AND PHYSICAL Lorene Barros 1985 REFERRING PHYSICIAN: Radha Emanuel, * CHIEF COMPLAINT: Consult (Thyroid consult) HPI: The patient is a 36 year old female with a complaint of a right thyroid nodule. This thyroid nodule was found on Ultrasound by [facility]. The patient denies pain, denies [...] Date UNSPECIFIED ORAL SURGERY PROCEDURE, BY REPORT [place] [facility] Current Outpatient Medications Medication Sig Dispense [...] entered by the nurse and reviewed by vt Nursing Notes: Cindy Mancuso RN 10/13/2022 2:47 [...] or tarry stools, de (more content not included)...[facility]01-16-2023 History of Present illness Narrative* Galen Welch MD - 10/13/2022 3:58 PM EST HISTORY AND PHYSICAL Lorene Barros 1985 REFERRING PHYSICIAN: Radha Emanuel, * CHIEF COMPLAINT: Consult (Thyroid consult) HPI: The patient is a 36 year old female with a complaint of a right thyroid nodule. This thyroid nodule was found on Ultrasound by [facility]. The patient denies pain, denies [...] Date UNSPECIFIED ORAL SURGERY PROCEDURE, BY REPORT [place] Current Outpatient Medications Medication Sig Dispense [...] needed for wheezing/shortness of breath. Use over 5- 15minutes. (Patient not taking: Reported on10/13/2022) 3 mL 0 omeprazole (PRILOSEC) 20 mg capsule Take 1 capsule by mouth once daily. (Patient not taking: No sigreported) 30 capsule 0 ondansetron (ZOFRAN) 4 mg tablet Take 1 tablet by mouth every 8 hours as needed. (Patient not taking: No sig reported) 30 tablet 3 famotidine (PEPCID) 20 mg tablet Take 1 tablet by mouth twice daily as needed. (Patient not taking:Reported on 10/13/2022) 60 tablet 6 oseltamivir (TAMIFLU) [...] entered by the nurse and reviewed by vt Nursing Notes: Cindy Mancuso RN 10/13/2022 2:47 [...] back pain/injury, denies back problems, denies sciatica, deniesknee/foot trouble, denies arthritis, or denies gout. When was patient's last Mammogram screening? N/A Last Colonoscopy: None Cindy Mancuso RN PHYSICAL EXAMINATION: General: The patient is 36 year old female, well nourished, well hydrated in no acute distress. Thepatient is oriented to time, place, and person. VITALS: Blood pressure 112/70, pulse 90, temperature 37 C (98.6 F), height 160 cm (5' 3), weight 86.4 kg (190 lb 6.4 oz), last menstrual period 07/17/2016, SpO2 100 %. Body mass index is 33.73 kg/m . HEENT: Normal cephalic, ataumatic, pupils are equally round, sclera are anicteric, mucous membranesare moist, oropharynx is clear. Neck has no [...] Galen Welch III, MD documented in this encounterOhio[facility]01-16-2023 Nurse Note* Cindy Mancuso RN - 10/13/2022 2:46 PM EST REVIEW OF SYSTEMS: General: The patient denies [...] back pain/injury, denies back problems, denies sciatica, deniesknee/foot trouble, denies arthritis, or denies gout. When was patient's last Mammogram screening? N/A Last Colonoscopy: None Cindy Mancuso RN documented in this encounterOhio[facility]12-16-2022 NotePap Smear Specimen AdequacyDeceer 2021 5:47pmComment.Satisfactory for evaluation. Endocervical and/or squamous metaplasticcells (endocervical component)are present.[facility] A#[id number] Work Phone: Comment on above:Satisfactory for evaluation. Endocervical and/or squamous metaplasticcells (endocervical component)are present.07-01-2022 NoteHNO ID: [id number] Author: Diomedes Saldana MD Service: ? Author [...] by others. I have seen and examined Lorene Barros. I have discussed the case and the management of this patient's care with the Resident/Fellow, if applicable. I also have reviewed and agree with the assessment and plan as stated above and agree with all of its relevant components.[facility]10-04-2022 History of Present illness Narrative* Diomedes Saldana MD - 07/01/2022 1:45 PM EDT This is a 36 year old female [...] by others. I have seen and examined Lorene Barros. I have discussed the case and the management of this patient's care with the Resident/Fellow, if applicable. I also have reviewed and agree with the assessment and plan as stated above and agree with all of its relevant components. documented in this encounterOhio[facility]09-02-2022 NoteHNO ID: [id number] Author: Melanie Caldwell MD Service: ? Author Type: Physician [...] been affected Had relatively normal vision until ~1636-1393 when noticed changes in left eye, now noticing color vision changes in the right eye Some trouble with dark adaptation, worsening photophobia No hearing loss Keep scheduled appointment and Electroretinogram with Dr. Saldana. Melanie Caldwell MD I have confirmed and edited as necessary the relevant ophthalmic history, review of systems, surgical history, and ophthalmological examination findings as obtained by the ophthalmic technical staff. I have seen and examined Lorene Barros. I have discussed the examination findings, diagnosis, and treatment options with Lorene Barros and/or her family. I have also reviewed and agree with the assessment and plan as stated above and agree with all its relevant components. I gave the patient the opportunity to ask questions about the findings, diagnosis, and treatment options.[facility]04-27-2022 NoteHNO ID: [id number] Author: Raghu Yeager MS Service: ? Author [...] a copy. Raghu Yeager MS 01/22/2022 3:27 [facility]04-27-2022 NoteHNO ID: [id number] Author: Mari Wong Bakari Service: ? Author Type: Genetic Counselor Type: Progress Notes Filed: 01/29/2022 8:18 AM Note Text: Patient Name and confirmed at initiation of visit. Dr. Laura Clancy, I requested a genetic consultation for Lorene Barros, a 36 year old female, for [...] with dark adaptation, photophobia, and color discrimination. Lorene denied other systemic concerns such as digit [...] - UNSPECIFIED ORAL SURGERY PROCEDURE, BY REPORT [place] [facility] RELEVANT EVALUATIONS TO DATE: Base Eye [...] Fundus photos in pro (more content not included)...[facility]04-27-2022 NoteHNO ID: [id number] Author: Laura Clancy I, MD Service: ? Author Type: Physician Type: Progress Notes Filed: 01/22/2022 12:51 PM Note Text: 1. [place] Macular Dystrophy Had previously been told she had recessive macular dystrophy One of her two siblings (brother), and paternal great grandfather, great uncle, uncles have been affected Had relatively normal vision until ~8884-0622 when noticed changes in left eye, now [...] Laura Clancy MD January 22, 2022 12:50 [facility] 12-18-2015 History of Past illness Narrative* Problem Noted Date Resolved Date Encounter for supervision of normal first in third trimester 12/18/2015 04/09/2016 Hyperemesis affecting , antepartum 08/2804/09/2016 Encounter for supervision of normal first in first trimester 07/13/2015 01/02/2016 documented as of this encounter (statuses as of 01/23/2022) [facility] History of Past illness Narrative* Problem Noted Date Resolved Date Encounter for supervision of normal first in third trimester 12/18/2015 04/09/2016 Hyperemesis affecting , antepartum 08/2804/09/2016 Encounter for supervision of normal first in first trimester 07/13/2015 01/02/2016 documented as of this encounter (statuses as of 07/01/2022) [facility] History of Past illness Narrative* Problem Noted Date Resolved Date Encounter for supervision of normal first in third trimester 12/18/2015 04/09/2016 Hyperemesis affecting , antepartum 08/2804/09/2016 Encounter for supervision of normal first in first trimester 07/13/2015 01/02/2016 documented as of this encounter (statuses as of 10/13/2022) [facility] History of Past illness Narrative* Problem Noted Date Resolved Date Encounter for supervision of normal first in third trimester 12/18/2015 04/09/2016 Hyperemesis affecting , antepartum 08/2804/09/2016 Encounter for supervision of normal first in first trimester 07/13/2015 01/02/2016 documented as of this encounter (statuses as of 10/16/2022) [facility] History of Past illness Narrative* Problem Noted Date Resolved Date Encounter for supervision of normal first in third trimester 12/18/2015 04/09/2016 Hyperemesis affecting , antepartum 08/2804/09/2016 Encounter for supervision of normal first in first trimester 07/13/2015 01/02/2016 documented as of this encounter (statuses as of 10/28/2022) [address]22-2016 History of Past illness Narrative* Problem Noted Date Diagnosed Date Resolved Date Encounter for supervision of normal first in third trimester 12/18/2015 04/09/2016 Hyperemesis affecting , antepartum 09/10/2015 04/09/2016 Encounter for supervision of normal first in first trimester 07/13/2015 01/02/2016 documented as of this encounter (statuses as of 04/24/2023) [facility] note* 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 documented in this encounter [facility] noteNo assessment information availableWPremier Health [facility] Work Phone: Evaluation note* Diagnosis [place] macular dystrophy- Primary 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 [facility]Eval[facility] [place] [facility]* Diagnosis Onset Date Resolution Status Encounter for routine gynecological examination noneactive [facility] Work Phone: Evaluation note* Diagnosis Uninodular goiter- Primary Nontoxic uninodular goiter documented in this encounter [facility]Eval[facility] [place] [facility]* Diagnosis Uninodular goiter- Primary Nontoxic uninodular goiter documented in this encounter [facility] note* Diagnosis Uninodular goiter- Primary Nontoxic uninodular goiter [facility]* Diagnosis Onset Date Resolution Status Rash noneactive [facility] Work Phone: Evaluation note* Diagnosis Onset Date Resolution Status Rash noneactive Anxiety and depression acute Encounter for routine gynecological examination noneactive [facility] Work Phone: Evaluation note* Diagnosis Onset Date Resolution Status Swelling of joint of multiple sites acute Vaginitis noneactive [facility] Work Phone: Reason for referral (narrative)No reason for referral information availableTerre Haute [facility] Work Phone: Chief Complaint and Reason for Visit Chief Complaint Congenital malformat ion of retina Chief Complaint Congenital malformat ion of retina 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) IODINE-DEFICIENCY RELATED GOITER Reason for Visit Encounter for routin e gynecological examination Chief Complaint Congenital malformat ion of retina 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) IODINE-DEFICIENCY RELATED GOITER PELVIC AND PERINEAL PAIN Reason for Visit Encounter for routin e gynecological examination Chief Complaint ABN THYROID US Chief Complaint Rash Reason for Visit Rash Chief Complaint Rash CONGESTION/LIGHTHEADED THYROID NODULE 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) Reason for Visit Rash Anxiety and depression Encounter for routine gynecological examination Chief Complaint JOINT PAIN, SWOLLEN HANDS on going vaginal irritation Reason for Visit Swelling of joint of multiple sites Vaginitis Chief Complaint Admit Date HEAD CONGESTION June 26, 2025 4:07pm Family History No Family History Records Found Relationship Condition Age at Onset Recorded Date/T david grandfather Diabetes mellitus Unknown Hypertension Unknown grandfather Malignant neoplasm Unknown son Asthma Unknown Advance Directives No Advanced Directives Records Found Advance Directive Response Recorded Date/ Time Living Will No June 26, 2021 2:14am Power of Marketing Support Manager No May 2:14am Advance Directive Response Recorded Date/ Time Living Will No June 26, 2021 1:14am Power of Marketing Support Manager No May 1:14am Advance Directive Response Recorded Date/ Time Living Will No January 22, 2024 3:01pm Power of Marketing Support Manager No January 21 3:01pm Summary Purpose Additional Source Comments Source Comments (unrecognize d section and content) In the event this informatio n is protected by the Federal Confidentiality of Alcohol and Drug Abuse Patient Records regulations: The Federal rules restrict any use of the information to criminally investigate or prosecute any alcohol or drug abuse patient.[facility] HospitalIn the event this information is protected by the Federal Confidentiality of Alcohol and Drug Abuse Patient Records regulations: The Federal rules restrict any use of the information to criminally investigate or prosecute any alcohol or drug abuse patient.[facility] HospitalIn the event this information is protected by the Federal Confidentiality of Alcohol and Drug Abuse Patient Records regulations: The Federal rules restrict any use of the information to criminally investigate or prosecute any alcohol or drug abuse patient.[facility] HospitalIn the event this information is protected by the Federal Confidentiality of Alcohol and Drug Abuse Patient Records regulations: The Federal rules restrict any use of the information to criminally investigate or prosecute any alcohol or drug abuse patient.[facility] HospitalIn the event this information is protected by the Federal Confidentiality of Alcohol and Drug Abuse Patient Records regulations: The Federal rules restrict any use of the information to criminally investigate or prosecute any alcohol or drug abuse patient.[facility] HospitalIn the event this information is protected by the Federal Confidentiality of Alcohol and Drug Abuse Patient Records regulations: The Federal rules restrict any use of the information to criminally investigate or prosecute any alcohol or drug abuse patient.[facility] HospitalIn the event this information is protected by the Federal Confidentiality of Alcohol and Drug Abuse Patient Records regulations: The Federal rules restrict any use of the information to criminally investigate or prosecute any alcohol or drug abuse patient.[facility] Goals (unrecognized section and content) Goals may be documented in a n alternate sectionGoals may be documented in an alternate sectionGoals may be documented in an alternate sectionGoals may be documented in an alternate sectionGoals may be documented in an alternate sectionGoals may be documented in an alternate sectionGoals may be documented in an alternate sectionGoals may be documented in an alternate section Reason for Visit (unrecogniz ed section and content) Reason Comments Macular Dystrophy Evaluation Reason Comments Consult Thyroid consult Reason Comments Procedure Right thyroid fna Reason Comments Follow Up Thyroid pathology Specialty Diagnoses / Procedures Referred By Contac t Referred To Contact Radiology / RADIO [facility] SC[facility] Diagnoses Other allergic rhinitis DX:Other allergic rhinitis [J30.89] Procedures CT MAXILLOFACIAL W/O CONTRAST MATERIAL CT WO COMPLEX SINUS [address] [place] [address] [facility] [address] [place] [address] Referral ID Status Reason Start Date Expiration Date Visits Re quested Visits Authorized [id number] Closed 04/12/2024 09/27/2024 1 1 Care Teams (unrecognized sec tion and content) Pear Picker Relationship Specialty Start Date End Date Carlos Le [address] [place] [address] Ophthalmology 05/22/22 Pear Picker Relationship Specialty Start Date End Date Radha Emanuel [address] [facility] [facility] [facility] [address] [place] [address] PCP - General Family Medicine 09/26/22 Carlos Le [address] [place] [address] Ophthalmology 05/22/22 Pear Picker Relationship Specialty Start Date End Date Radha Emanuel [address] [facility] [facility] [address] [place] [address] PCP - General Family Medicine 09/26/22 Carlos Le [address] [place] [address] Ophthalmology 05/22/22 Pear Picker Relationship Specialty Start Date End Date Radha Emanuel [address] [facility] [address] [place] [address] PCP - General Family Medicine 09/26/22 Carlos Le [address] [place] [address] Ophthalmology 05/22/22 Team Status: Active Member Role Status Dates Dr. Radha Emanuel MD Family Provider Active Dr. Radha Emanuel MD Primary Care Provider Active Team Status: Inactive Member Role Status Dates Dr. Radha Emanuel MD Primary Care Provider Active Dr. Galen Welch MD Attending Provider, Referring Provider Active Team Status: Inactive Member Role Status Dates Dr. Radha Emanuel MD Primary Care Provider, Attend ing Provider Active Pear Picker Relationship Specialty Start Date End Date Radha Emanuel [address] [facility] [address] [place], [place] [address] PCP - General Family Medicine 09/26/22 Carlos Le [address] [place], [place] [address] Ophthalmology 05/22/22 Team Status: Inactive Member Role Status Dates Dr. Radha Emanuel MD Primary Care Provider, Referr ing Provider Active Tank Farmer PA, PA Attending Provider Active Team Status: Inactive Member Role Status Dates Dr. Radha Emanuel MD Primary Care Provider, Referr ing Provider Active Dr. Angela Wagner MD Attending Provider Active Team Status: Inactive Member Role Status Dates Dr. Radha Emanuel MD Primary Care Pr ovider, Attending Provider, Referring Provider Active Dr. Angela Wagner MD Other Provider Active Team Status: Inactive Member Role Status Dates Dr. Radha Emanuel MD Primary Care Provider, Referr ing Provider Active JULIANE Adler Attending Provider Active Team Status: Inactive Member Role Status Dates Dr. Radha Emanuel MD Primary Care Provider, Referr ing Provider Active JULIANE Hall Attending Provider Active Team Status: Inactive Member Role Status Dates Dr. Radha Emanuel MD Primary Care Provider Active UJLIANE Adler Attending Provider, Referring Pr ovider Active Pear Picker Relationship Specialty Start Date End Date Radha Emanuel MD [address] [facility] [address] [place] [address] PCP - General Family Medicine 09/26/22 Carlos Le [address] [place] [address] Ophthalmology 05/22/22 Team Status: Active Member Role/Relationship Status Dates Dr. Radha Emanuel MD Primary care physician Active Team Status: Inactive Member Role/Relationship Status Dates Dr. Radha Emanuel MD Primary care physician Active Start: June 26, 2025 End: June 26, 2025 Dr. Radha Emanuel MD Referring Provider Active Start: June 26, 2025 End: June 26, 2025 Tank MARISCAL, PA Attending physician Active Start: June 26, 2025 End: June 26, 2025 INFORMATION SOURCE (unrecogn ized section and content) DATE CREATED AUTHOR 10/29/2022 [facility] DATE CREATED AUTHOR AUTHOR'S ORGANIZ ATION 04/28/2024 [facility] DATE CREATED AUTHOR AUTHOR'S ORGANIZ ATION 07/02/2025 [facility] FOR RECORDS PERTAINING TO PATIENTS WHO ARE [...] BE BASED ON THE PRIMARY CLINICAL RECORDS. [facility] [employer] provides no warranty or guarantee of the accuracy or completeness of information in this document.
[2025-07-15 07:00] VITALS: BP 120/82; PULSE 74; RESP 16; TEMP 36.5; O2SAT 98
== END 2025-07-15 07:01 | disposition home or self-care (01) ==
PROVIDERS: Emergency Provider Emergency Medicine; PCP Family Medicine; Visit Provider Emergency Medicine
DX: M25.512 Pain in left shoulder (principal); F41.9 Anxiety disorder, unspecified; M62.838 Other muscle spasm; F32.A Depression, unspecified; Z79.899 Other long term (current) drug therapy; M54.10 Radiculopathy, site unspecified
CPT/HCPCS: 96372; 99284

== ENCOUNTER → 2025-09-19 | Outpatient (CLI) | payer OTHER, SELFPAY ==
[2025-09-19 15:44] LABS: AST(SGOT) 20 U/L (<=31); Alanine Aminotransfer ALT/SGPT 26 U/L (<=34); Albumin, Serum 4.6 g/dL (3.5-5.0); Alkaline Phosphatase 54 U/L (35-104); Anion Gap 11 (7-18); BUN 8 mg/dL (4-19); BUN/Creat Ratio 11.2 RATIO (10-20); Calcium,Total 9.3 mg/dL (7.6-11.0); Carbon Dioxide 25.9 mmol/L (20.0-29.0); Chloride 101 mmol/L (96-106); Globulin 2.5 g/dL (2.2-4.2); Glucose 78 mg/dL (70-99); Potassium 4.2 mmol/L (3.5-5.1); Vitamin D,25 Hydroxy 31.6 ng/mL (30-100)
== END | disposition home or self-care (01) ==
LOC: MTLAB 11:41
PROVIDERS: PCP Family Medicine; Referring Provider Family Medicine; Visit Provider Family Medicine
DX: E55.9 Vitamin D deficiency, unspecified (principal)
CPT/HCPCS: 36415; 80053; 82306